=== PATIENT | female | born 1960 | race Caucasian/White ===

== ENCOUNTER 2017-03-16 12:45 | Outpatient (CLI) | payer MEDICARE, SELFPAY | END 2017-03-16 14:00 | disposition home or self-care (01) | PROVIDERS: Visit Provider Family Medicine | DX: M81.0 Age-related osteoporosis without current pathological fracture (principal) | CPT/HCPCS: 82040; 82310; 82565; 96365; J3489 ==

== ENCOUNTER → 2017-04-21 08:22 | Outpatient (CLI) | payer MEDICARE, SELFPAY ==
--- NOTE | 2017-04-21 08:27 | MM_ITS ---
MM Dig screening mamm BI w/CAD CAD Screening ORDERING PHYSICIAN : Ricky Pennington MD PATIENT AGE: 56 years GENDER: Female COMPARISON: Digital mammogram May 2010 Film screen mammogram October 1998 HISTORY no hormones. No new complaints. Noncontributory family history TECHNIQUE: Standard CC and MLO images were obtained. R2 CAD reviewed. Additional MLO view to include INF bilateral FINDINGS: Minimal fibroglandular elements, Fairly Low-density breast bilaterally with generalized fatty replacement. No dominant mass. No suspicious calcifications either breast . No significant new areas of concern . There is no history of hormones but there is very slight accentuation of glandular elements throughout both breasts either reflecting technique or exogenous hormone effect. This includes mild accentuation of some some underlying fibroglandular elements here at the left breast central and upper-outer quadrant. No dominant mass or significant finding but this subtle asymmetry does warrant ongoing follow-up. Would encourage and emphasized follow-up not over one year along with some breast examination for close follow-up. IMPRESSION: No new findings of significant concern No mass. No discrete radiographic lesion Bilateral follow-up in one year recommended and should be encouraged and emphasized, along with self breast examination this patient BI-RADS Category: 2 Benign Finding(s) RECOMMENDED FOLLOW-UP: 1YR - 1 YEAR FOLLOW-UP (A letter has been sent to the patient regarding results of the study.)
== END ==
PROVIDERS: Family Provider Family Medicine; PCP Family Medicine; Visit Provider Family Medicine
DX: Z12.31 Encounter for screening mammogram for malignant neoplasm of breast (principal)
CPT/HCPCS: 77067

== ENCOUNTER → 2017-06-28 08:37 | Outpatient (CLI) | payer MEDICARE, SELFPAY ==
[2017-06-28 09:11] LABS: Blood Urea Nitrogen 15 mg/dL (7-18); Creatinine,Serum 0.87 mg/dL (0.55-1.02); Estimated Glomerular Filt Rate 68 ml/min (>60); GFR (African American) 82 ML/MIN (>60)
--- NOTE | 2017-06-28 09:20 | CT_ITS ---
CT abdomen pelvis w con Ordering Physician: Carlos Mata MD Patient Age: 56 years: Female HISTORY: ITS.REASON: GENERALIZED ABD PAIN, GREATER ON THE LEFT . Left-sided pain for 2 months feels like laying on a marble TECHNIQUE:. Helical CT scanning through abdomen & pelvis following 75 cc Isovue-370. Early scanning abdomen and pelvis; followed by 5 m delayed imaging through abdomen. Sagittal and coronal reconstructions formatted CT workstation oral contrast also utilized COMPARISON :Previous CT abdomen pelvis 07/18/2010 FINDINGS Lungs with dependent atelectasis. small hiatal hernia. Borderline cardiomegaly Liver. 16 mm hepatic cyst at the superior central right lobe. 11 mm cyst medial far dome of liver. Both these Incrementally larger but appears to be a benign cyst.. Fluid densityOtherwise liver unremarkable. Gallbladder is been removed. No significant ductal dilatation. Pancreas.: Normal. Stable Spleen: unremarkable. Adrenals: unremarkable. Kidneys. Satisfactory unremarkable. Ureters unremarkable. Aorta: normal caliber. Pelvis.: Hysterectomy. No adnexal masses.. Bladder unremarkable GI tract. Generous gas throughout the colon with Moderate stool at the right and transverse colon. Minimal stool left colon . No diverticulosis but no diverticulitis. Redundant sigmoid colon contains moderate gas & minimal stool. Small bowel. No bowel dilatation. No wall thickening. Only few scattered small air-fluid levels. Do not appear to be significant . Appendix removed, ileum unremarkable No significant hernia. Only tiny fat-containing umbilical hernia, unchanged since 2010 Osseous. No lesions. Moderate facet arthropathy, hypertrophy lower levels L-spine IMPRESSION 1. No acute findings abdomen pelvis. No findings to account for the patient's left-sided pain. 2.. Note Generous Gaseous distention throughout entire colon : with moderate stool the right & transverse colon. Only Minimal stool left colon 3.. Small hiatal hernia 4. Two Small benign-appearing hepatic cysts again noted. Only incrementally larger than 2011
--- NOTE | 2017-06-28 09:49 | HMH.ITSHM ---
TRAMADOL, FURESOMIDE, LYRICA
== END ==
PROVIDERS: Family Provider Family Medicine; PCP Family Medicine; Visit Provider Family Medicine
DX: R10.84 Generalized abdominal pain (principal)
CPT/HCPCS: 36415; 74177; 82565; 84520; Q9967

== ENCOUNTER → 2019-10-11 13:47 | Outpatient (CLI) | payer MEDICARE, SELFPAY ==
[2019-10-11 15:07] LABS: Albumin Level 3.7 g/dl (3.5-5.0)
[2019-10-11 15:10] LABS: Calcium 9.2 mg/dl (8.4-10.2); Estimated Glomerular Filt Rate 74 ml/min (>60); GFR (African American) 89 ML/MIN (>60)
== END ==
PROVIDERS: Visit Provider Family Medicine
DX: M81.0 Age-related osteoporosis without current pathological fracture (principal)
CPT/HCPCS: 36415; 82040; 82310; 82565

== ENCOUNTER 2019-10-16 12:31 | Outpatient (CLI) | payer MEDICARE, SELFPAY ==
[2019-10-16 12:51] VITALS: BP 132/76; PULSE 61; RESP 18; TEMP 36.6; O2SAT 98
[2019-10-16 13:30] VITALS: BP 128/74; PULSE 60; RESP 18; TEMP 36.6; O2SAT 98
== END 2019-10-16 13:30 | disposition home or self-care (01) ==
LOC: INF 12:31
PROVIDERS: Visit Provider Family Medicine
DX: M81.0 Age-related osteoporosis without current pathological fracture (principal)
CPT/HCPCS: 96374; J3489

== ENCOUNTER → 2019-11-10 12:29 | Outpatient (CLI) | payer MEDICARE, SELFPAY ==
[2019-11-10 13:29] LABS: Basophils # 0.1 K/mm3 (0-0.2); Basophils % 0.9 % (0.1-2.0); Eosinophils # 0.3 K/mm3 (0.0-0.4); Eosinophils % 4.4 % (0.1-12.0); Hematocrit 42.6 % (37.0-47.0); Hemoglobin 14.5 g/dL (12.2-16.2); Lymphocytes # 1.6 K/mm3 (0.7-4.5); Lymphocytes % 23.8 % (10-50); Mean Corpuscular Hemoglobin 32.2 pg (27.0-31.2); Mean Corpuscular Volume 94.7 fl (81-99); Mean Platelet Volume 7.6 fl (7.4-10.4); Monocytes # 0.3 K/mm3 (0.1-1.0); Monocytes % 4.7 % (1.7-9.3); Neutrophils # 4.4 K/mm3 (1.8-7.8); Neutrophils % 66.2 % (37.0-80.0); Platelet Count 313 K/mm3 (142-424); Red Blood Count 4.49 M/mm3 (4.20-5.40); Red Cell Distribution Width 13.2 % (11.5-17.5); White Blood Count 6.7 K/mm3 (4.8-10.8)
== END ==
PROVIDERS: PCP Family Medicine; Visit Provider Physician Assistant
DX: Z03.818 Encounter for observation for suspected exposure to other biological agents ruled out (principal)
CPT/HCPCS: 36415; 85025; U0003

== ENCOUNTER → 2019-12-13 11:50 | Outpatient (CLI) | payer MEDICARE, SELFPAY ==
[2019-12-13 13:26] LABS: Blood Urea Nitrogen 12 mg/dl (7-17); Estimated Glomerular Filt Rate 86 ml/min (>60); GFR (African American) 104 ML/MIN (>60)
== END ==
PROVIDERS: Visit Provider Family Medicine
DX: Z01.818 Encounter for other preprocedural examination (principal)
CPT/HCPCS: 36415; 82565; 84520

== ENCOUNTER → 2019-12-20 08:37 | Outpatient (CLI) | payer MEDICARE, SELFPAY ==
--- NOTE | 2019-12-20 08:42 | FL_ITS ---
PROCEDURE: FL BARIUM SWALLOW CLINICAL INDICATION: DYSPHAGIA COMPARISON: CR,CT ABDPELW CT abdomen pelvis w con from 06/28/2017 TECHNIQUE: In the upright position the patient was observed to swallow barium in both the AP and lateral view. The cervical esophagus was examined under fluoroscopy with images obtained. The patient was then placed prone in the right anterior oblique position and was observed to swallow barium with Valsalva technique . FLUOROSCOPY TIME: 2 minutes 25 seconds FINDINGS: There was no evidence of aspiration. There was normal peristalsis. There is no abnormality of the cervical esophagus. There is a progressively enlarging hiatal hernia seen developing during the study. This appears to be combination of sliding and paraesophageal hernia. There is mild persistent stenosis of the distal esophagus just above the esophagogastric junction. This may represent changes from chronic reflux esophagitis. There is free gastroesophageal reflux up to the upper thoracic esophagus with the patient in the supine position. When compared to the previous CT scan of the abdomen 06/28/2017 there has been interval enlargement of the hiatal hernia. IMPRESSION: Moderately large sliding and paraesophageal hiatal hernia with free GE reflux as noted. Dictated by: Dr. Ketan Smith MD 12/20/2019 09:46 Dr. Ketan Smith MD in [place] 12/20/2019 09:46
--- NOTE | 2019-12-20 08:43 | CT_ITS ---
PROCEDURE: CT SOFT TISSUE NECK W CON CLINICAL HISTORY: PHARYNGEAL DYPHAGIA dysphagia....feels like left side of neck is numb no palpable areas COMPARISON: RF FL BARIUM SWALLOW from 12/20/2019 TECHNIQUE: Oral Contrast: None IV Contrast: 75 mL Optiray 350 Axial images obtained with sagittal and coronal reformats. All CT scans at the facility use one or more dose reduction, viz: automated exposure control, ma/kV adjustment per patient size (including targeted exams where dose is matched to indication, i.e. head), or iterative reconstruction technique. FINDINGS: The nasopharynx, epiglottis, oropharynx and hypopharynx have an unremarkable appearance. No mass or abscess. There are few scattered small cervical lymph nodes. No dominant adenopathy. There are mild osteoarthritic changes of the TMJs. The cervical spine has an unremarkable appearance. Lung apices are clear IMPRESSION: Negative CT of the neck with contrast Dictated by: Luca Pereira MD 12/21/2019 14:44 Luca Pereira MD in [place] 12/21/2019 14:44
== END ==
PROVIDERS: PCP Family Medicine; Visit Provider Family Medicine
DX: R13.13 Dysphagia, pharyngeal phase (principal)
CPT/HCPCS: 70491; 74220; Q9967

== ENCOUNTER → 2020-01-14 12:40 | Outpatient (CLI) | payer MEDICARE, SELFPAY ==
[2020-01-14 14:13] LABS: Coronavirus 19 IgG Antibody Negative (Negative); Coronavirus 19 IgM Antibody Negative (Negative)
== END ==
PROVIDERS: Visit Provider Internal Medicine Gastroenterology
DX: Z01.818 Encounter for other preprocedural examination (principal); Z13.810 Encounter for screening for upper gastrointestinal disorder
CPT/HCPCS: 36415; 86328

== ENCOUNTER 2020-01-15 10:00 | Day surgery (SDC) | payer MEDICARE, SELFPAY ==
[2020-01-09 13:15] VITALS: BMI 35.2
[2020-01-15] VITALS (8 sets, daily range): BP systolic 90–150; BP diastolic 57–108; PULSE 62–90; RESP 18; TEMP 36.4–36.8; O2SAT 90–100
--- NOTE | 2020-01-15 10:57 | P.PCN_ITS ---
[facility] Procedure Note Procedure Note:: Upper Endoscopy Procedure Report: Esophagogastroduodenoscopy with cold biopsies and TTS balloon dilation Endoscopost: Baldev Olivo II, MD Referring Physician: Semaj Pennington MD Date of Procedure: January 15, 2020 Equipment: Olympus GIF 180 standard upper endoscope Sedation: MAC sedation Indications: Mrs. Newell is a 59-year-old female with globus sensation and some dysphagia. She reports some frequent clearance of the throat and choking. The patient did undergo fundoplication ([facility]) 13 years ago. This was the last time she had an EGD. She does get some epigastric abdominal pain and dyspepsia that radiates into the back. This often occurs after meals. She does have moderate bloating and gassiness with some belching. She reports some early satiety. She does have IBS constipation and does take MiraLAX when necessary. She reports no chest pain. The patient did have a barium swallow on December 20, 2019 and she did appear to have a sliding paraesophageal hernia. There was some gastroesophageal reflux identified. She did have a subsequent CAT scan of the neck which was otherwise normal. Procedure: Prior to the procedure, a history and physical exam was performed, and patient's medications and allergies were reviewed. The risks, benefits and alternatives o f the sedation and procedure were discussed with the patient. All questions were answered and informed consent was obtained. The patient was brought to the procedure room. Patient identification and proposed procedure were verified by the physician and the nurse. The patient was placed in a left lateral decubitus position and the scope was passed under direct vision. Throughout the procedure, the patient's blood pressure, pulse, and oxygen saturations were monitored continuously. The upper GI endoscopy was accomplished without difficulty. The patient tolerated the procedure well. Findings: The scope was passed directly into the upper esophagus and advanced to the third portion of the duodenum. The post bulbar duodenum and duodenal bulb were normal with normal mucosa and conniventes. The scope was withdrawn through a normal duodenal bulb and pylorus into the stomach. There was evidence of linear reactive gastropathy of the antrum with bile reflux. There was some gastric atrophy of the body and fundus. Biopsies were taken from the antrum to rule out H. pylori. Biopsies were taken from the fundus of the stomach to rule out atrophy. Upon retroflexion there was 2 to 3 cm hiatal hernia/paraesophageal hernia (small to medium size). The scope was then withdrawn into the esophagus. There was a single tongue of salmon-colored mucosa that was biopsied to rule out Dos Santos's esophagus. There was no Schatzki's ring or reflux esophagitis. There were strong tertiary contractions and evidence of moderate esophageal dysmotility. There was a proximal esophageal inlet patch. The entire esophagus was dilated to 60 Croatian/20 mm with a TTS hydrostatic balloon. There was some resistance at the cricopharyngeus. The remainder of the esophageal mucosa was normal. Impression: 1. Cricopharyngeal spasm status post dilation to 20 mm 2. Nonerosive GERD with moderate esophageal dysmotility and small 2 to 3 cm hiatal hernia/paraesophageal hernia 3. Bile reflux with linear reactive gastropathy and mild chronic atrophic gastritis Plan: I will follow-up the biopsies. The patient does have cricopharyngeal spasm causing her globus sensation and choking. We will discuss additional treatment options which should include a fiber bowel regimen and possibly promotility therapy. I will inquire about any recent colonoscopy as well
== END 2020-01-15 12:00 | disposition home or self-care (01) ==
LOC: OUTP 10:01
PROVIDERS: PCP Family Medicine; Visit Provider Internal Medicine Gastroenterology
PROC: 0DJ08ZZ Inspection of Upper Intestinal Tract, Via Natural or Artificial Opening Endoscopic (ICD-10-PCS; CPT 43235; principal; 2020-01-15 12:30)
DX: J39.2 Other diseases of pharynx (principal); K21.9 Gastro-esophageal reflux disease without esophagitis; K22.4 Dyskinesia of esophagus; K44.9 Diaphragmatic hernia without obstruction or gangrene; K31.9 Disease of stomach and duodenum, unspecified; K29.40 Chronic atrophic gastritis without bleeding; I11.0 Hypertensive heart disease with heart failure; I50.9 Heart failure, unspecified; Z90.49 Acquired absence of other specified parts of digestive tract; Z90.710 Acquired absence of both cervix and uterus; Z88.6 Allergy status to analgesic agent; Z79.899 Other long term (current) drug therapy
CPT/HCPCS: 43239; 43249; 88305; C1726

== ENCOUNTER → 2020-05-27 14:14 | Outpatient (CLI) | payer MEDICARE, SELFPAY | PROVIDERS: PCP Family Medicine; Visit Provider Nurse Practitioner Family | DX: R00.2 Palpitations (principal); R06.00 Dyspnea, unspecified; R40.0 Somnolence; R60.9 Edema, unspecified | CPT/HCPCS: 93270 ==

== ENCOUNTER → 2020-06-05 14:35 | Outpatient (POV) | payer MEDICARE, SELFPAY | DX: Z00.00 Encounter for general adult medical examination without abnormal findings (principal) ==

== ENCOUNTER → 2020-06-21 14:52 | Outpatient (CLI) | payer MEDICARE, SELFPAY ==
[2020-06-21 16:05] LABS: Coronavirus 19 IgG Antibody Negative (Negative); Coronavirus 19 IgM Antibody Negative (Negative)
== END ==
PROVIDERS: Visit Provider Internal Medicine
DX: Z01.812 Encounter for preprocedural laboratory examination (principal)
CPT/HCPCS: 36415; 86328

== ENCOUNTER 2020-06-24 08:02 | Day surgery (SDC) | payer MEDICARE, SELFPAY ==
[2020-06-24 08:18] VITALS: BMI 35.7
[2020-06-24 08:35] VITALS: BP 152/75; PULSE 74; RESP 16; O2SAT 96
[2020-06-24 08:39] VITALS: PULSE 65
[2020-06-24 09:23] VITALS: BP 148/89; PULSE 60; RESP 20; TEMP 36.6; O2SAT 98
--- NOTE | 2020-06-24 09:24 | CA_ITS ---
APPROVED REPORT EXAM: Comprehensive 2D, Doppler, and color-flow Echocardiogram Gear Finisher: RIKI Seth, RVS Ht: 5 ft 5 in Wt: 215lbs BSA: 2.04 HR: 61 bpm BP: 132/60 mmHg Indications: Shortness of Breath, Obesity, Palpitations, Edema, hx-smoking. S/P loop recorder removal today 2D Dimensions IVSd 0.93 cm LVEF (Visual) 62.20 % PWd 1.09 cm LA Volume 66.20 mL LVDd 5.79 cm LA Volume Index 32.50 mL/m2 (M/F) 16-34 LVDs 3.82 cm LVOT 2.00 cm (M/F) 1.5-2.5 M-Mode Dimensions LA Diam 4.29 cm (1.9-4.0) Ao Diam 3.08 cm (2.0-3.7) TAPSE 1.94 (<1.7) LV Diastology E Decel Time 307.00 (160-240 msec) E/A Ratio 1.58 MED E' 9.70 (< 7 cm/sec) MED A' 8.60 cm/s E'/MED E' Ratio 10.99 (>14) LAT E' 13.40 (<10 cm/sec) LAT A' 10.20 cm/s E/LAT E' Ratio 7.96 (>14) Aortic Valve AoV Peak Nguyễn. 162.00 (50-130 cm/s) AO Peak GR. 10.50 mmHg AO Mean GR. 5.60 (<5 mmHg) AO VTI 29.73 (18-25 cm) Mitral Valve MV A Velocity 67.00 (40-130 cm/s) E/A Ratio 1.58 MV Decel. Time 307.00 (160-240 ms) Pulmonary Valve PV Peak Velocity 101.00 (50-150 cm/s) Tricuspid Valve TR P. Velocity 221.00 cm/s RAP Estimate 10.00 mmHg RVSP 29.60 mmHg Left Ventricle Left atrium is qualitatively mildly enlarged, left ventricle is normal size, visually estimated ejection fraction 55% with no regional wall motion abnormality, diastolic parameters are within normal range. Right Ventricle Right atrium and right ventricular normal size and contractility. Aortic Valve Aortic valve is minimally thickened and fibrosed, there is no aortic stenosis or aortic insufficiency. Mitral Valve Mitral valve is grossly normal, there is trace mitral regurgitation. Tricuspid Valve Tricuspid grossly normal, there is trace tricuspid regurgitation, tricuspid regurgitation jet velocity is inadequate for calculation of the right ventricular systolic pressure. Pulmonic Valve Pulmonic valve is poorly visualized. Great Vessels Aortic root is normal size. Pericardium No significant pericardial effusion noted. Conclusion 1. Normal left ventricular size, preserved left ventricular systolic function, visually estimated ejection fraction 55% with no regional wall motion abnormality, diastolic parameters are within normal range. 2. Trace mitral and tricuspid regurgitation. 3. No significant pericardial effusion noted. Electronically signed by : Rony Bey, 06/24/2020 20:31:41
--- NOTE | 2020-06-24 12:05 | HMH.PROC ---
[facility] Procedure Note Procedure Note:: Patient was brought to the cardiac Director [employer] as an outpatient. After informed consent was obtained, 1% lidocaine was used to anesthetize the area over the loop recorder. A scalpel was used to dissect down to the loop recorder and forceps were used to remove the device without complications. The device was removed due to end-of-life indication. Patient tolerated the procedure well. The incision site was approximated and Steri-Strips and pressure dressing applied. The patient will follow-up in our office in 1 week or sooner if needed.
== END 2020-06-24 09:36 | disposition home or self-care (01) ==
LOC: CATHLAB 08:03
PROVIDERS: PCP Family Medicine; Visit Provider Internal Medicine
DX: R00.2 Palpitations (principal); R06.00 Dyspnea, unspecified; R40.0 Somnolence; R60.9 Edema, unspecified; Z45.09 Encounter for adjustment and management of other cardiac device
CPT/HCPCS: 33286; 93306

== ENCOUNTER → 2020-06-28 06:22 | Outpatient (CLI) | payer MEDICARE, SELFPAY ==
--- NOTE | 2020-06-28 06:22 | CA_ITS ---
APPROVED REPORT Exam: Exercise Treadmill Technologist: Priya San, Ht: 5 ft 5 in Wt: 215 lbs BSA: 2.04 m2 HR: 60 bpm BP: 127/77 mmHg Rhythm: NSR,NSSTTW ABNORMALITIES ANT-LATERALLY Medical History Medical History: HTN Medications: Omeprazole,,,,, Asa,,,,, Lasix,,,,, Tramadol,,,,, Montelukast,,,,, Levocetirizine,,,,, BisOPROL,,,,, Pramidexole,,,,, Cardiac Risk Factors: HTN, FHX of CAD, Smoking Stress Test Details Test: Wilman HR Resting HR: 91 bpm Max Heart Rate (APMHR): 162.274135 bpm Max HR Achieved: 149 bpm Target HR (85% APMHR): 137.548035 bpm % of APMHR: 91.98 Recovery HR: 99 bpm BP Resting BP: 127.0/77.0 mmHg Max BP: 145.0/83.0 mmHg Recovery BP: 156.0/76.0 mmHg ECG Resting ECG: NSR,NSSTTW ABNORMALITIES ANT-LATERLLY Clinical Reason for Termination: Dyspnea, Leg Pain Exercise duration: 06:01 min Highest Stage Achieved: Exercise capacity: 7.0 METs Stress ECG Conclusion PATIENT EXERCISED FOR 6:00 ON WILMAN PROTOCOL WITH MAX HEART RATE 149 BPM WHICH IS 104% OF PM FOR AGE. METS = 7.0. TEST STOPPED DUE TO LEG PAIN AND SOA. NO ARRHYTHMIAS/ECTOPY. <1.5MM ST SEGMENT CHANGES. ABNORMAL NON-DIAGNOSTIC STRESS DUE TO BASELINE STT ABNORMALITIES. Test Summary Stage 2 03:01 12.0 2.5 142 . . . Stage resumed REST . . . . . . . Sitting REST 08:48 0.0 0.0 91 . 127/ 77 . . Stage 1 01:00 10.0 1.7 102 . . . . Stage 1 02:00 10.0 1.7 124 . . . . Stage 1 03:00 10.0 1.7 124 . 140/ 78 . . Stage 2 01:00 12.0 2.5 133 . . . . Stage 2 . . . . . . . Cardiolite injected Stage 2 02:00 12.0 2.5 138 . . . . Stage 2 . . . . . . . Stage held Stage 2 03:00 12.0 2.5 144 . . . . Stage 2 . . . . . . . Stage resumed Stage 2 03:01 12.0 2.5 142 . . . Stop exercise at 06:01 RECOVERY 01:00 0.0 0.0 128 . . . . RECOVERY 02:00 0.0 0.0 111 . . . . RECOVERY 03:00 0.0 0.0 88 . . . . RECOVERY 04:00 0.0 0.0 90 . . . . RECOVERY 05:00 0.0 0.0 89 . . . . RECOVERY 06:00 0.0 0.0 102 . 145/ 83 . . RECOVERY 06:05 0.0 0.0 101 . 145/ 83 . . Electronically signed by : Rony Bey, 06/29/2020 13:23:54
--- NOTE | 2020-06-28 06:22 | NM_ITS ---
APPROVED REPORT Exam: Nuclear Stress Test Indication: HTN, FM HX, C.P., SOB, SOB, PALPITATIONS Patient Location: htn, Stress Tech: Kadi San NM Tech:Jumana Yun, ARRT, RT (R)(N) Ht: 5 ft 5 in Wt: 210 lbs Bra Size: 44C HR: 60 bpm BP: 127/77 mmHg BSA: 2.02 m2 BMI: 34.9 History: HTN, FM HX, C.P., SOB, SOB, PALPITATIONS Procedure: Patient exercised on Wilman protocol 6:00 minutes and sec, resting heart rate 60 bpm, resting blood pressure 127/77 mmHg, with exercise maximum heart rate achived was 149 bpm which is 104 % of the maximum predicted heart rate and blood pressure was 140/78 mmHg. Patient denied any complaint of chest pain. Patient has Adequate exercise capacity, achieved 7.0 METs of workload on treadmill, the blood pressure response to exercise was Adequate. Electrocardiogram Resting electrocardiogram showed sinus rhythm, with exercise there is less than 1.[address] segment depression noted from the baseline EKG, the EKG portion of the exercise Myoview is nondiagnostic due to baseline abnormal EKG. Cardiac Stress and Resting SPECT Images: Cardiac Stress and Resting SPECT images were obtained using technetium 99m Myoview 31.0 mCi stress and 9.68 mCi at rest. Gated SPECT for analysis of segmental wall motion and calculation of the ejection fraction also done. Prone images were also obtained. Cardiac stress and resting SPECT images show uniform myocardial activity without segmental perfusion abnormality, computer derived ejection fraction is 50% with no regional wall motion abnormality, right ventricle is normal size and contractility. Conclusion: 1. The EKG portion of the exercise Myoview is nondiagnostic due to baseline abnormal EKG, patient has adequate exercise capacity achieved 7 mets of workload on treadmill, the blood pressure response to exercise was adequate, there was no exercise-induced chest discomfort. 2. No scintigraphic evidence of reversible ischemia seen, computer derived ejection fraction is 50% with no regional wall motion abnormality, right ventricle is normal size and contractility. 3. Normal exercise Myoview study. Electronically signed by : Rony Bey, 06/29/2020 13:37:22
--- NOTE | 2020-06-28 08:19 | HMH.ITSHM ---
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 []FUROSEMIDE BISOPROLOL OMEPRAZOLE ASA CALCIUM
== END ==
PROVIDERS: PCP Family Medicine; Visit Provider Nurse Practitioner Family
DX: R00.2 Palpitations (principal); R06.00 Dyspnea, unspecified; R40.0 Somnolence; R60.9 Edema, unspecified
CPT/HCPCS: 78452; 93017; A9502

== ENCOUNTER → 2021-01-09 08:26 | Outpatient (CLI) | payer MEDICARE, SELFPAY ==
--- NOTE | 2021-01-09 08:34 | CT_ITS ---
PROCEDURE: CT ANGIO NECK CLINICAL INDICATION: lip numbness, neck cyst left side jaw. COMPARISON: No exams were available for comparison TECHNIQUE: CT angiography of the neck with multiplanar and 3D MIP reformations. Dose modulation, automated exposure control, and/or iterative reconstruction were used for dose reduction. All measurements of carotid stenosis are performed according to NASCET criteria. Contrast: 100ml Isouve 370. FINDINGS: AORTIC ARCH: Arch Anatomy: There is a normal branching anatomy of the aortic arch. Carotid Arteries: Carotid: The common carotid and cervical internal carotid arteries are patent and unremarkable without any significant stenosis or other abnormality. No dissection Vertebral Arteries: Both vertebral arteries are patent and unremarkable throughout their cervical portions, without any significant stenosis or other abnormality No dissection Lungs: The visualized lung apices are clear.</choice><choice name= emphysema >Emphysematous changes are present at the lung apices. Thyroid: The visualized thyroid gland is unremarkable. Bones: Mild TMJ arthropathy bilaterally right greater than left CTA of the head was also performed in conjunction with the CT of the neck but was not ordered. No additional contrast was given. No aneurysm, AVM, or major intracranial occlusive process. No enhancing lesions apparent. IMPRESSION: Unremarkable CTA of the neck. Bilateral TMJ arthropathy Dictated by: Luca Pereira MD 01/09/2021 11:13 Luca Pereira MD in [place] 01/09/2021 11:13
[2021-01-09 08:50] LABS: Blood Urea Nitrogen 8 mg/dl (7-17); Estimated Glomerular Filt Rate 73 ml/min (>60); GFR (African American) 89 ML/MIN (>60)
== END ==
PROVIDERS: Visit Provider Internal Medicine
DX: I10 Essential (primary) hypertension (principal); L72.0 Epidermal cyst; R00.2 Palpitations; R06.00 Dyspnea, unspecified; R20.0 Anesthesia of skin; R60.9 Edema, unspecified
CPT/HCPCS: 36415; 70498; 82565; 84520; Q9967

== ENCOUNTER → 2021-02-28 14:52 | Outpatient (CLI) | payer MEDICARE, SELFPAY ==
--- NOTE | 2021-02-28 14:52 | CT_ITS ---
PROCEDURE INFORMATION: Exam: CT Neck Without Contrast Exam date and time: 02/28/2021 2:52 PM Age: 60 years old Clinical indication: Mass, lump, or swelling in neck; Left; Additional info: Left sided facial/neck swelling TECHNIQUE: Imaging protocol: Computed tomography images of the neck without contrast. Radiation optimization: All CT scans at this facility use at least one of these dose optimization techniques: automated exposure control; mA and/or kV adjustment per patient size (includes targeted exams where dose is matched to clinical indication); or iterative reconstruction. COMPARISON: CT ANGIO NECK 01/09/2021 9:07 AM FINDINGS: Nasopharynx: Unremarkable. Oropharynx: Unremarkable. No significant tonsillar enlargement. Hypopharynx: Unremarkable. Larynx: Unremarkable. Normal epiglottis. Retropharyngeal space: Unremarkable. Submandibular/Parotid glands: Normal. Glands are normal in size. Thyroid: Normal. No enlarged or calcified nodules. Lymph nodes: Unremarkable. No lymphadenopathy. Trachea: Visualized trachea is unremarkable. Lungs: Unremarkable as visualized. Bones/joints: Unremarkable. No acute fracture. Soft tissues: Unremarkable. No significant soft tissue swelling. IMPRESSION: No acute findings.
== END ==
PROVIDERS: PCP Family Medicine; Visit Provider Otolaryngology
DX: R22.0 Localized swelling, mass and lump, head (principal)
CPT/HCPCS: 70490

== ENCOUNTER 2021-03-17 04:49 | Observation (INO) | payer MEDICARE, SELFPAY ==
[2021-03-17] VITALS (26 sets, daily range): BP systolic 104–144; BP diastolic 58–94; PULSE 60–107; RESP 14–26; TEMP 36.3–37; O2SAT 90–99; BMI 34.9; BMI 36.8
--- NOTE | 2021-03-17 | IR_ITS ---
APPROVED REPORT Patient Location: Outpatient Cable Placer: DAKOTAH Austin RT (R) PROCEDURES Left heart catheterization Left ventriculogram Selective coronary angiogram INDICATION Chest pain with strikingly abnormal EKG suspect acute coronary syndrome Informed consent was obtained prior to the procedure. COMPLICATIONS NONE Estimated Blood Loss: LESS THAN 10 ML TECHNIQUE One percent lidocaine used to anesthetize the right anterior aspect of the wrist. The right radial artery was accessed via the Seldinger technique. A 6 [place] sheath was placed in the right radial artery. 2.5 mg of verapamil, 800 mcg of nitroglycerin, 1mg Lidocaine and 5000 U Heparin were given through the arterial sheath. The Poppa catheter was also used to perform left heart catheterization, left ventriculogram and selective coronary angiogram. At the end of the procedure the sheath was removed good hemostasis was achieved using Traclet band, patient was transferred to the postop holding area in stable condition. ANGIOGRAPHIC RESULTS The left main artery Normal The left anterior descending artery Normal The circumflex artery normal The right coronary artery co-dominant and normal The BAKER ventriculogram reveals normal ejection fraction estimated 65% The left ventricular end-diastolic pressure 10 mmHg IMPRESSION Normal coronary arteries Normal ejection fraction Normal left ventricular end-diastolic pressure PLAN 1. Evaluation of noncardiac symptoms Electronically signed by : Adiel Niño MD 03/17/2021 08:28:09
--- NOTE | 2021-03-17 04:57 | ECG_ITS ---
APPROVED REPORT Exam: Resting ECG HR:84 bpm ECG Measurements Heart Rate 84 AXES WA 132 P 49 QRSd 84 QRS 42 QT 352 T -26 QTc 415 Conclusion Normal sinus rhythm ST & T wave abnormality, consider anterolateral ischemia Abnormal ECG Electronically signed by : Lucius Casillas MD 03/18/2021 21:07:33
--- NOTE | 2021-03-17 05:15 | XR_ITS ---
PROCEDURE INFORMATION: Exam: XR Chest Exam date and time: 03/17/2021 5:15 AM Age: 60 years old Clinical indication: Cough and other: Lung pain; Additional info: Lung pain cough TECHNIQUE: Imaging protocol: XR of the chest. Views: 2 views. COMPARISON: CR CXR CHEST(2 VIEWS-NOT PORTABLE) 09/09/2015 10:39 AM FINDINGS: Lungs: Unremarkable. No consolidation. Pleural spaces: Unremarkable. No pleural effusion. No pneumothorax. Heart/Mediastinum: Unremarkable. No cardiomegaly. Bones/joints: Unremarkable. IMPRESSION: No acute findings.
--- NOTE | 2021-03-17 05:18 | HMH.EDSOB ---
ED Disposition Clinical Impression: Pleurisy, Abnormal finding on EKG CAP (community acquired pneumonia) Qualifiers: Laterality: unspecified laterality Qualified Code(s): J18.9 - Pneumonia, unspecified organism Disposition: Admitted as Observation Condition on Discharge: Good Referrals: Ricky Pennington MD [Primary Care Provider] - Adiel Niño MD [Staff Physician] - - Critical Care Critical Care Time: No Attestation: On 03/17/21, the high probability of a clinically significant, sudden or life threatening deterioration of the following system(s) required my full and direct attention, intervention and personal management. The time I documented below is in addition to time spent performing reported procedures but includes the following listed in this critical care notation. Medical Decision Making - Medical Records Medical records reviewed: Yes: I reviewed the patient's medical records. - Mauricio Inquiry Pt receiving controlled substance: No Vital Signs: 03/17/21 04:50 03/17/21 05:31 03/17/21 06:00 Temperature 98.3 F Temperature Source Oral Pulse Rate 81 94 H Pulse Rate [Left] 86 Respiratory Rate 26 H Blood Pressure 130/67 133/68 Blood Pressure [Right Arm] 130/86 Blood Pressure Mean Blood Pressure Mean [Right Arm] 100 02 Sat by Pulse Oximetry 98 99 98 Oxygen Delivery Method Room Air Room Air Room Air 03/17/21 06:30 03/17/21 07:01 Temperature Temperature Source Pulse Rate 79 79 Pulse Rate [Left] Respiratory Rate 15 Blood Pressure 131/80 141/72 H Blood Pressure [Right Arm] Blood Pressure Mean 82 Blood Pressure Mean [Right Arm] 02 Sat by Pulse Oximetry 98 97 Oxygen Delivery Method Room Air - Lab Data Lab results reviewed: Yes: I reviewed the patient's lab results. Lab Results 03/17/21 05:00: WBC 7.0, RBC 4.32, Hgb 13.1, Hct 40.3, MCV 93.2, MCH 30.3, MCHC 32.5, RDW 13.6, Plt Count 327, MPV 8.3, Neut % (Auto) 65.0, Lymph % (Auto) 28.5, [place] % (Auto) 3.8, Eos % (Auto) 1.7, Baso % (Auto) 0.9, Neut # (Auto) 4.6, Lymph # (Auto) 2.0, [place] # (Auto) 0.3, Eos # (Auto) 0.1, Baso # (Auto) 0.1, ESR 49 H 03/17/21 05:00: Sodium 139, Potassium 3.8, Chloride 105, Carbon Dioxide 26, Anion Gap 11.8, BUN 6 L, Creatinine 0.70, Estimated Creat Clear 130, Estimated GFR 86, Est GFR ( Amer) 104, Glucose 122 H, Calcium 9.2, Total Bilirubin 0.5, AST 36, ALT 29, Alkaline Phosphatase 78, Troponin I < 0.01, Total Protein 7.4, Albumin 4.1, Globulin 3.3 H, Albumin/Globulin Ratio 1.2, Lipase 38, Procalcitonin 0.120 03/17/21 05:00: SARS-CoV-2 (PCR) Not detected, Influenza A Untype (PCR) Not detected, Influenza Type B (PCR) Not detected 03/17/21 05:00: Lactate 1.6 03/17/21 05:40: Urine Color Yellow, Urine Appearance Clear, Urine pH 6.0, Ur Specific [place] <= 1.005, Urine Protein Negative, Urine Glucose (UA) Negative, Urine Ketones Negative, Urine Blood Negative, Urine Nitrate Negative, Urine Bilirubin Negative, Urine Urobilinogen 0.2, Ur Leukocyte Esterase Trace, Urine WBC 3-5, Amorphous Sediment Trace Result diagrams: 03/17/21 05:00 03/17/21 05:00 Orders (Tests/Meds): ED MEDICATIONS Generic Name Dose Route Start Last Admin Trade Name Freq PRN Reason Stop Dose Admin Sodium Chloride 1,000 mls @ 999 mls/hr 03/17/21 05:30 03/17/21 05:23 Sod Chlor 0.9% 1000ml Bag IV 03/17/21 06:30 999 mls/hr .Q1H1M ALEXANDRA Administration Azithromycin 500 mg/ Sodium 250 mls @ 250 mls/hr 03/17/21 06:45 03/17/21 06:43 Chloride IV 03/31/21 06:44 250 mls/hr Q24H ALEXANDRA Administration Ceftriaxone Sodium 1 gm/ 50 mls @ 100 mls/hr 03/17/21 06:45 03/17/21 06:45 Sodium Chloride IV 03/31/21 06:44 100 mls/hr Q24H ALEXANDRA Administration Discontinued Medications Generic Name Dose Route Start Last Admin Trade Name Freq PRN Reason Stop Dose Admin Aspirin 324 mg 03/17/21 07:07 03/17/21 07:11 Aspirin 81mg Chewable Tablet PO 03/17/21 07:08 324 mg ONCE ONE Administration Io
[2021-03-17 05:33] LABS: Basophils # 0.1 K/mm3 (0-0.2); Basophils % 0.9 % (0.1-2.0); Eosinophils # 0.1 K/mm3 (0.0-0.4); Eosinophils % 1.7 % (0.1-12.0); Hematocrit 40.3 % (37.0-47.0); Hemoglobin 13.1 g/dL (12.2-16.2); Lymphocytes % 28.5 % (10-50); Mean Corpuscular HGB Conc 32.5 g/dL (31.8-35.4); Mean Corpuscular Hemoglobin 30.3 pg (27.0-31.2); Mean Corpuscular Volume 93.2 fl (81-99); Mean Platelet Volume 8.3 fl (7.4-10.4); Monocytes # 0.3 K/mm3 (0.1-1.0); Monocytes % 3.8 % (1.7-9.3); Neutrophils # 4.6 K/mm3 (1.8-7.8); Platelet Count 327 K/mm3 (142-424); Red Blood Count 4.32 M/mm3 (4.20-5.40); Red Cell Distribution Width 13.6 % (11.5-17.5)
[2021-03-17 05:34] LABS: Coronavirus 19, PCR Not Detected (NotDetected); Influenza A, PCR Not Detected (NotDetected); Influenza B, PCR Not Detected (NotDetected)
--- NOTE | 2021-03-17 05:37 | PC.NURSE ---
Pt going to radiology at this time.
[2021-03-17 05:38] LABS: Lactic Acid 1.6 mmol/L (0.7-2.1)
[2021-03-17 05:39] LABS: Alanine Aminotransferase 29 U/L (12-78); Albumin Level 4.1 g/dl (3.5-5.0); Albumin/Globulin Ratio 1.2 (1.1-1.8); Alkaline Phosphatase 78 U/L (38-126); Anion Gap 11.8 mEq/L (5-15); Aspartate Amino Transferase 36 U/L (14-36); Bilirubin,Total 0.5 mg/dl (0.2-1.3); Blood Urea Nitrogen 6 mg/dl (7-17); Calcium 9.2 mg/dl (8.4-10.2); Carbon Dioxide 26 mmol/L (22.0-30.0); Chloride 105 mmol/L (98-107); Creatinine Clearance Estimated 130 mL/min (50-200); Estimated Glomerular Filt Rate 86 ml/min (>60); GFR (African American) 104 ML/MIN (>60); Globulin 3.3 g/dL (1.3-3.2); Glucose 122 mg/dl (74-100); Lipase 38 U/L (23-300); Potassium 3.8 mmoL/L (3.5-5.1); Sodium 139 mmol/L (136-145); Total Protein,Serum 7.4 g/dl (6.3-8.2)
[2021-03-17 05:48] LABS: Microscopic, Urine URINE MICROSCOPIC (MICROSCOPIC)
[2021-03-17 05:50] LABS: Appearance,Urine CLEAR (Clear); Bilirubin,Urine Negative (Negative); Blood, Urine Negative (Negative); Color,Urine YELLOW (Yellow); Glucose,Urine (UA) Negative (Negative); Ketones,Urine Negative (Negative); Leukocyte Esterase,Urine TRACE (Negative); Nitrate,Urine Negative (Negative); Protein,Urine Negative (Negative); Specific Gravity, Urine <= 1.005 (1.005-1.030); Urobilinogen,Urine 0.2 EU/dl (0.2)
--- NOTE | 2021-03-17 05:52 | CT_ITS ---
PROCEDURE INFORMATION: Exam: CTA Chest With Contrast Exam date and time: 03/17/2021 5:52 AM Age: 60 years old Clinical indication: Cough and other: Lung pain; Additional info: Lung pain cough TECHNIQUE: Imaging protocol: Computed tomographic angiography of the chest with contrast. 3D rendering (Not supervised by radiologist): MIP and/or 3D reconstructed images were created by the technologist. Radiation optimization: All CT scans at this facility use at least one of these dose optimization techniques: automated exposure control; mA and/or kV adjustment per patient size (includes targeted exams where dose is matched to clinical indication); or iterative reconstruction. Contrast material: ISOVUE 370; Contrast volume: 70 ml; Contrast route: INTRAVENOUS (IV); COMPARISON: CR XR CHEST 2V 03/17/2021 5:32 AM FINDINGS: Pulmonary arteries: Normal. No pulmonary emboli. Aorta: Unremarkable. No aortic aneurysm. No aortic dissection. Lungs: Some patchy airspace disease is seen primarily in the right middle and in both lower lobes. Some of this is slightly nodular and somewhat this more ground-glass in opacity. Pleural spaces: Unremarkable. No pneumothorax. No pleural effusion. Heart: Unremarkable. No cardiomegaly. No pericardial effusion. Lymph nodes: Unremarkable. No enlarged lymph nodes. Diaphragm: A moderate size hiatal hernia is present. Bones/joints: Unremarkable. No acute fracture. Soft tissues: Unremarkable. IMPRESSION: No evidence of pulmonary embolus. Patchy bibasilar airspace disease consistent with early pneumonia..
[2021-03-17 05:59] LABS: Amorphous Sediment,Urine Trace /lpf
[2021-03-17 06:00] LABS: Troponin I < 0.01 ng/ml (0.00-0.034)
[2021-03-17 06:02] LABS: Erythrocyte Sedimentation Rate 49 mm/hr (0-30)
--- NOTE | 2021-03-17 06:24 | ECG_ITS ---
APPROVED REPORT Exam: Resting ECG HR:80 bpm ECG Measurements Heart Rate 80 AXES IN 138 P 47 QRSd 86 QRS 39 QT 366 T -2 QTc 422 Conclusion Normal sinus rhythm ST & T wave abnormality, consider inferior ischemia ST & T wave abnormality, consider anterolateral ischemia Abnormal ECG Electronically signed by : Lucius Casillas MD 03/18/2021 21:07:13
--- NOTE | 2021-03-17 06:39 | PC.NURSE ---
Dr. Malika johnson for Dr. Martins.
--- NOTE | 2021-03-17 06:47 | CA_ITS ---
APPROVED REPORT EXAM: Comprehensive 2D, Doppler, and color-flow Echocardiogram Community Outreach Worker: Farrah Land RVT Ht: 5 ft 5 in Wt: 210lbs BSA: 2.02 BP: 131/80 mmHg Indications: ABN EKG,COUGH,EARLY PNEUMONIA,HTN,PALPS TDS-PT SCANNED UPRIGHT R/T COUGHING 2D Dimensions IVSd 0.98 cm F: 0.6-1.0 LVEF (Visual) 57.60 % PWd 0.69 cm F: 0.6 - 1.0 LA Volume 27.00 mL LVDd 4.14 cm F: 3.9 - 5.3 LA Volume Index 13.36 mL/m2 (M/F) 16-34 LVDs 2.90 cm F: 2.2 - 3.5 LVOT 2.06 cm (M/F) 1.5-2.5 M-Mode Dimensions LA Diam 3.32 cm (1.9-4.0) Ao Diam 3.45 cm (2.0-3.7) TAPSE 2.38 (<1.7) LV Diastology E Decel Time 150.00 (160-240 msec) E/A Ratio 0.9 MED E' 9.00 (< 7 cm/sec) E'/MED E' Ratio 11.03 (>14) LAT E' 10.90 (<10 cm/sec) E/LAT E' Ratio 9.11 (>14) Mitral Valve MV E Max Nguyễn. 99.00 (40-130 cm/s) MV A Velocity 112.00 (40-130 cm/s) E/A Ratio 0.89 MV Decel. Time 150.00 (160-240 ms) MV PHT 44.00 ms Pulmonary Valve PV Peak Velocity 84.00 (50-150 cm/s) Tricuspid Valve TR P. Velocity 307.00 cm/s RAP Estimate 10.00 mmHg RVSP 47.70 mmHg Left Ventricle Left atrium is mildly enlarged, left ventricle is normal size, mild concentric left ventricular hypertrophy, visually estimated ejection fraction 50% with no regional wall motion abnormality diastolic parameters are inconclusive. Right Ventricle Right atrium and right ventricle are normal size and contractility. Aortic Valve Aortic valve is minimally thickened and fibrosed, there is no aortic stenosis or aortic insufficiency. Mitral Valve Mitral valve is grossly normal, there is trace mitral regurgitation Tricuspid Valve Tricuspid valve grossly normal, there is trace tricuspid regurgitation, tricuspid regurgitation jet velocity is inadequate for calculation of the right ventricular systolic pressure. Pulmonic Valve Pulmonic valve is poorly visualized. Great Vessels Aortic root is normal size. Inferior vena cava is poorly visualized. Pericardium No significant pericardial effusion noted. Conclusion 1. Technically difficult study because of the patient factors and poor acoustic windows. 2. Mildly in the left atrium, normal left ventricular size, mild concentric left ventricular hypertrophy, visually estimated ejection fraction 50% with no regional wall motion abnormality, diastolic parameters are inconclusive. 3. No significant pericardial effusion noted. 4. Inferior vena cava is poorly visualized. Electronically signed by : Rony Bey MD 03/17/2021 20:38:47
--- NOTE | 2021-03-17 07:24 | PC.NURSE ---
ECHO AT BEDSIDE
--- NOTE | 2021-03-17 11:31 | HMH.CNCARD ---
History of Present Illness Consult date: 03/17/21 Requesting physician: Ricky Pennington Consult reason: chest pain Chief complaint: Atypical chest pain History of present illness: 60-year-old female presented to the emergency room with pleuritic pain which radiates to the back. Patient states for the past 2 to 3 days she has been having a nonproductive cough and feels as though she has pneumonia. Patient states when she takes a deep breath in her chest begins to hurt. Patient states she was currently being treated for an upper respiratory infection. Patient denies any history of coronary artery disease. Patient does have history of hypertension, which is controlled. Patient does have history of palpitations. Upon arrival to the ED, EKG was noted to be abnormal in which it seemed to be consistent with ostial left main disease and ACF. Even though serial cardiac enzymes were negative, it was recommended patient to undergo left heart catheterization this a.m. Discussed with patient the risk and benefits of undergoing left heart catheterization with right radial access. Patient verbalized understanding and is agreeable to procedure. Pending on the results of the left heart catheterization, medication and treatment therapies may be recommended. Will obtain echocardiogram to assess LV function and valve status. Pending on the results of the echocardiogram, medication and treatment therapies may be recommended. Upper respiratory infection will be managed by PCP. [facility] History I have reviewed the patient's past medical history: Yes Medical History: Reports:: Arrhythmia, Hypertension, Palpitations Denies:: Cancer, Diabetes Mellitus Type 1, Diabetes Mellitus Type 2, Internal Pacemaker, MRSA, Seizures *Have you ever received a pneumonia vaccine?: Yes *Have you received a flu vaccine this season?: No Other Medical History: Reports: Anemia, Arthritis, Fibromyalgia, Sinus Problems Laterality Cases: Bilateral: Tonsillectomy Other Surgeries: Yes: Appendectomy, Cardiac Catheterization, Cholecystectomy, Colonoscopy, EGD, Hysterectomy-Total. No: Pacemaker Amputation: No Fractures: Yes (R 2nd toe, R index finger) - *Social History Smoking Status: Never smoker Alcohol Intake: never Substance Use Type: denies use *Occupational Status:: unemployed Housing: house Household Members: spouse *Travel in the last 8 weeks: Inside the [facility] Family Hx:: Cancer, Coronary Artery Disease, Diabetes, Heart Attack, Hyperlipidemia, Hypertension, Stroke, Thyroid Disorder, Other Meds Home Medications Medication Instructions Recorded Confirmed Type Aspirin [Aspirin 81mg EC Tab] 81 mg PO DAILY 10/16/19 02/05/21 History Tramadol HCl [Tramadol 50mg 50 mg PO TID PRN 10/16/19 02/05/21 History Tab] furosemide 20 mg tablet 20 mg PO DAILY tab 05/27/20 02/05/21 History pramipexole 0.5 mg tablet 0.5 mg PO HS PRN 05/27/20 02/05/21 History bisoprolol fumarate 5 mg tablet 5 mg PO DAILY tab 02/05/21 02/05/21 History omeprazole 40 mg capsule,delayed 40 mg PO DAILY cap 02/05/21 02/05/21 History release Allergies Allergy/AdvReac Type Severity Reaction Status Date / Time codeine Allergy Unknown Verified 02/05/21 13:15 Exam Vital signs and Labs for Last 24 Hours: Temp Pulse Resp BP Pulse Ox 97.3 F L 74 16 109/67 L 94 L 03/17/21 09:15 03/17/21 11:15 03/17/21 11:15 03/17/21 11:15 03/17/21 11:15 Laboratory Results - last 24 hr 03/17/21 05:00: WBC 7.0, RBC 4.32, Hgb 13.1, Hct 40.3, MCV 93.2, MCH 30.3, MCHC 32.5, RDW 13.6, Plt Count 327, MPV 8.3, Neut % (Auto) 65.0, Lymph % (Auto) 28.5, [place] % (Auto) 3.8, Eos % (Auto) 1.7, Baso % (Auto) 0.9, Neut # (Auto) 4.6, Lymph # (Auto) 2.0, [place] # (Auto) 0.3, Eos # (Auto) 0.1, Baso # (Auto) 0.1, ESR 49 H 03/17/21 05:00: Sodium 139, Potassium 3.8, Chloride 105, Carbon Dioxide 26, Anion Gap 11.8, BUN 6 L, Creatinine 0.70, Estimated Creat Clear 130, Estimated GFR 86, E
--- NOTE | 2021-03-17 13:30 | SUR.PHASEII ---
Dr. Pennington @ bedside to see pt
--- NOTE | 2021-03-17 13:34 | SUR.PHASEII ---
Annetta Evangelista RN called report to Destiny Lopez RN @ [facility].
--- NOTE | 2021-03-17 16:08 | HMH.HP ---
*Admission Date: 03/17/21 *Chief complaint: Left chest discomfort *History of present illness: Ms. Newell is a 60yo white female with history of HTN, GERD, IBS, Fibromyalgia, and mood disorder. She reports for the past 4-5 days she has been having a nonproductive cough and feels as though she has pneumonia. She had a telehealth visit with [facility] on 03/14/21 and was started on cefuroxime for her upper respiratory symptoms which included cough, intermittent fever, body aches, and congestion. Although she was encouraged to complete lab testing to determine the cause of her infection, she declined and requested only a course of antibiotic be sent. She describes starting with pleuritic left chest pain 2-3 days ago which has not improved with antibiotic which has progressed to constant left anterior lower chest discomfort which radiates to her left mid-back and is worse with coughing or movement. Unable to get relief at home, she presented to the [facility] ED. Upon arrival, EKG was noted to be abnormal although serial cardiac enzymes were negative. Chest x-ray was unremarkable. CT of the chest showed no evidence of pulmonary embolus and patchy bilateral airspace disease consistent with early pneumonia. Cardiology was consulted and it was recommended patient undergo left heart catheterization to which she was agreeable. At the time of this writing, patient is resting quietly in PACU. She continues with frequent cough and left chest discomfort radiating to her back. She denies any shortness of breath or dyspnea. She will be admitted for treatment of her community acquired pneumonia and pleurisy. [facility] History Medical History: Reports:: Arrhythmia, Depression, Gastroesophageal Reflux Disease(GERD), Hypertension, Palpitations Denies:: Cancer, Diabetes Mellitus Type 1, Diabetes Mellitus Type 2, Internal Pacemaker, MRSA, Seizures *Have you ever received a pneumonia vaccine?: Yes *Have you received a flu vaccine this season?: No Other Medical History: Reports: Anemia, Arthritis, Fibromyalgia, Sinus Problems Laterality Cases: Bilateral: Tonsillectomy Other Surgeries: Yes: Appendectomy, Cardiac Catheterization, Cholecystectomy, Colonoscopy, EGD, Hysterectomy-Total. No: Pacemaker Amputation: No Fractures: Yes (R 2nd toe, R index finger) - *Social History Smoking Status: Never smoker Alcohol Intake: never Substance Use Type: denies use *Occupational Status:: unemployed Housing: house Household Members: spouse *Travel in the last 8 weeks: Inside the [facility] Family Hx:: Cancer, Coronary Artery Disease, Diabetes, Heart Attack, Hyperlipidemia, Hypertension, Stroke, Thyroid Disorder, Other Review of Systems - Constitutional Reports body ache(s), Reports fever(s), Reports headache(s), Reports lack of energy - Eyes Denies change in vision - ENT Reports hoarseness, Reports nasal congestion, Reports nasal discharge, Reports post nasal drip, Reports sinus pain - *Cardiovascular Reports chest pain, Reports chest pain at rest, Reports chest pain with activity, Denies shortness of breath, Denies generalized swelling - *Respiratory Reports chest congestion, Reports cough, Reports pain on inspiration, Reports pain with cough - *Gastrointestinal Denies abdominal pain, Denies change in bowel habits, Denies loose stools, Denies nausea, Denies vomiting - *Genitourinary Denies difficulty urinating - *Neurologic Reports weakness, Denies headache(s), Denies seizure-like activity - Endocrine Denies rapid, pounding, or irregular heartbeat - Hematologic/Lymphatic Denies enlarged lymph nodes Meds Home Medications Medication Instructions Recorded Confirmed Type Aspirin [Aspirin 81mg EC Tab] 81 mg PO DAILY 10/16/19 03/17/21 History Tramadol HCl [Tramadol 50mg 50 mg PO TID PRN 10/16/19 03/17/21 History Tab] furosemide 20 mg tablet 20 mg PO DAILY tab 05/27/20 03/17/21 History bisoprolol fumarate 5 mg tablet 5 mg
--- NOTE | 2021-03-17 22:30 | PC.NURSE ---
No care needed
[2021-03-18 03:48] VITALS: BP 140/79; PULSE 66; RESP 16; TEMP 36.9; O2SAT 91
[2021-03-18 05:07] VITALS: BMI 36.4
--- NOTE | 2021-03-18 05:52 | PC.NURSE ---
Emptied trash and linens
[2021-03-18 06:34] LABS: Basophils % 0.1 % (0.1-2.0); Eosinophils % 0.1 % (0.1-12.0); Hematocrit 37.4 % (37.0-47.0); Hemoglobin 12.7 g/dL (12.2-16.2); Lymphocytes # 1.2 K/mm3 (0.7-4.5); Lymphocytes % 17.8 % (10-50); Mean Corpuscular HGB Conc 33.8 g/dL (31.8-35.4); Mean Corpuscular Hemoglobin 31.7 pg (27.0-31.2); Mean Corpuscular Volume 93.6 fl (81-99); Mean Platelet Volume 7.7 fl (7.4-10.4); Monocytes # 0.2 K/mm3 (0.1-1.0); Monocytes % 3.1 % (1.7-9.3); Neutrophils # 5.3 K/mm3 (1.8-7.8); Neutrophils % 78.9 % (37.0-80.0); Platelet Count 353 K/mm3 (142-424); Red Blood Count 3.99 M/mm3 (4.20-5.40); Red Cell Distribution Width 12.9 % (11.5-17.5); White Blood Count 6.8 K/mm3 (4.8-10.8)
[2021-03-18 06:47] LABS: Chloride 108 mmol/L (98-107); Sodium 142 mmol/L (136-145)
[2021-03-18 06:48] LABS: Potassium 3.5 mmoL/L (3.5-5.1)
[2021-03-18 06:50] LABS: Blood Urea Nitrogen 5 mg/dl (7-17); Creatinine Clearance Estimated 132 mL/min (50-200); Estimated Glomerular Filt Rate 86 ml/min (>60); GFR (African American) 104 ML/MIN (>60)
[2021-03-18 06:51] LABS: Anion Gap 10.5 mEq/L (5-15); Calcium 8.5 mg/dl (8.4-10.2); Carbon Dioxide 27 mmol/L (22.0-30.0); Chol/HDL Ratio 4.1 (1-3.5); Cholesterol 161 mg/dl (140-200); Glucose 160 mg/dl (74-100); HDL Cholesterol 39 mg/dl (40-60); Magnesium 2.1 mg/dl (1.6-2.3); Triglycerides 85 mg/dl (30-150); VLDL Cholesterol 17 mg/dL (0-40)
[2021-03-18 07:02] LABS: Direct LDL Cholesterol 97.28 mg/dL (100-129)
[2021-03-18 08:00] VITALS: BP 124/55; PULSE 87; RESP 18; TEMP 36.6; O2SAT 93; O2SAT 94
--- NOTE | 2021-03-18 08:23 | P.PN_ITS ---
Internal Medicine - PN: Subj *Date: 03/18/21 *Time: 08:23 Interval history: She is feeling much better this morning. Her pain has resolved and she feels her breathing has improved. She denies SOB. She ate a good breakfast and has been up to the bathroom ad isabella. She is eager for discharge. Exam Vital signs and Labs for Last 24 Hours: Temp Pulse Resp BP Pulse Ox 98.4 F 66 16 140/79 91 L 03/18/21 03:48 03/18/21 03:48 03/18/21 03:48 03/18/21 03:48 03/18/21 03:48 Laboratory Results - last 24 hr 03/18/21 05:52: WBC 6.8, RBC 3.99 L, Hgb 12.7, Hct 37.4, MCV 93.6, MCH 31.7 H, MCHC 33.8, RDW 12.9, Plt Count 353, MPV 7.7, Neut % (Auto) 78.9, Lymph % (Auto) 17.8, [place] % (Auto) 3.1, Eos % (Auto) 0.1, Baso % (Auto) 0.1, Neut # (Auto) 5.3, Lymph # (Auto) 1.2, [place] # (Auto) 0.2, Eos # (Auto) 0.0, Baso # (Auto) 0.0 03/18/21 05:52: Sodium 142, Potassium 3.5, Chloride 108 H, Carbon Dioxide 27, Anion Gap 10.5, BUN 5 L, Creatinine 0.70, Estimated Creat Clear 132, Estimated GFR 86, Est GFR ( Amer) 104, Glucose 160 H, Calcium 8.5, Magnesium 2.1, Triglycerides 85, Cholesterol 161, LDL Cholesterol Direct 97.28 L, VLDL Cholesterol 17, HDL Cholesterol 39 L, Cholesterol/HDL Ratio 4.1 H I & O for Last 24 hours: Intake & Output 03/15/21 03/16/21 03/17/21 03/18/21 11:59 11:59 11:59 11:59 Weight 210 lb 213 lb 6 oz - Constitutional no acute distress - *Routine HEENT Exam Head: Present: normocephalic, atraumatic ENT: Present: mucous membranes moist - *Routine Respiratory Exam Absent: respiratory distress Comments: improved air movement with scattered rhonchi and bibasilar rales L > R, no wheezing - *Routine Cardiovascular Exam Present: RRR - *Routine Abdominal Exam Present: soft, normoactive bowel sounds. Absent: tenderness, distended, guarding, rigid, mass - *Routine Extremities Exam Present: full ROM, pulses intact. Absent: edema, tenderness, extremity cold to touch - *Routine Neurological Exam Present: alert, oriented X3, moving all extremities, normal speech Assessment and Plan (1) Abnormal finding on EKG Status: Acute Category: Medical Code(s): R94.31 - Abnormal electrocardiogram [ECG] [EKG] (2) CAP (community acquired pneumonia) Status: Acute Qualifiers: Laterality: unspecified laterality Qualified Code(s): J18.9 - Pneumonia, unspecified organism Category: Medical Code(s): J18.9 - Pneumonia, unspecified organism (3) Pleurisy Status: Acute Category: Medical Code(s): R09.1 - Pleurisy (4) Dyspnea Status: Chronic Qualifiers: Dyspnea type: dyspnea on exertion Qualified Code(s): R06.00 - Dyspnea, unspecified Category: Medical Code(s): R06.00 - Dyspnea, unspecified (5) HTN (hypertension) Status: Chronic Qualifiers: Hypertension type: primary hypertension Qualified Code(s): I10 - Essential (primary) hypertension Category: Medical Code(s): I10 - Essential (primary) hypertension - Assessment and plan all Dx Assessment and Plan for all problems:: Per Dr. Pennington.
[2021-03-18 08:56] VITALS: BP 141/71; PULSE 70; RESP 18; TEMP 36.6
--- NOTE | 2021-03-18 09:14 | P.CONPHA_ITS ---
[facility] Pharmacy VTE Monitoring - Patient Demographics Admission date: 03/18/21 Report Date: 03/18/21 Time: 09:14 Allergies/Adverse Reactions: Patient Allergies codeine Allergy (Unknown, Verified 02/05/21 13:15) Height: 1.63 m Weight: 96.785 kg Patient Problems: Current Active Problems CAP (community acquired pneumonia) (Acute) Pleurisy (Acute) Abnormal finding on EKG (Acute) HTN (hypertension) (Chronic) Dyspnea (Chronic) - VTE Risk Labs: VTE Related Lab Results Hgb 12.7 g/dL (12.2-16.2) 03/18/21 05:52 Hct 37.4 % (37.0-47.0) 03/18/21 05:52 Plt Count 353 K/mm3 (142-424) 03/18/21 05:52 BUN 5 mg/dl (7-17) L 03/18/21 05:52 Creatinine 0.70 mg/dl (0.52-1.04) 03/18/21 05:52 Estimated Creat Clear 132 mL/min (50-200) 03/18/21 05:52 Clinical Trial Participant: No - Prophylaxis VTE Prophylaxis Ordered?: Yes Types of VTE Prophylaxis: TEDS Knee High
--- NOTE | 2021-03-18 09:22 | HMH.PHAINT ---
HOME MEDICATION LIST VERIFIED USING LIST FROM [facility] OFFICE AND PT INTERVIEW
--- NOTE | 2021-03-18 09:50 | SW/DCPLANNER ---
Dr Pennington has stated that plan for this patient is to return home today. Patient has no further needs at this time.
[2021-03-18 11:07] VITALS: BP 141/71; PULSE 70; RESP 18; TEMP 36.6; O2SAT 94
--- NOTE | 2021-03-19 13:19 | HMH.DCSUM ---
General - General Admission date:: 03/17/21 Discharge date: 03/18/21 HPI HPI: Ms. Newell is a 60yo white female with history of HTN, GERD, IBS, Fibromyalgia, and mood disorder. She reports for the past 4-5 days she has been having a nonproductive cough and feels as though she has pneumonia. She had a telehealth visit with [facility] REFUGIO Whiteside on 03/14/21 and was started on cefuroxime for her upper respiratory symptoms which included cough, intermittent fever, body aches, and congestion. Although she was encouraged to complete lab testing to determine the cause of her infection, she declined and requested only a course of antibiotic be sent. She describes starting with pleuritic left chest pain 2-3 days ago which has not improved with antibiotic which has progressed to constant left anterior lower chest discomfort which radiates to her left mid-back and is worse with coughing or movement. Unable to get relief at home, she presented to the [facility] ED. Upon arrival, EKG was noted to be abnormal although serial cardiac enzymes were negative. Chest x-ray was unremarkable. CT of the chest showed no evidence of pulmonary embolus and patchy bilateral airspace disease consistent with early pneumonia. Cardiology was consulted and it was recommended patient undergo left heart catheterization to which she was agreeable. At the time of this writing, patient is resting quietly in PACU. She continues with frequent cough and left chest discomfort radiating to her back. She denies any shortness of breath or dyspnea. She will be admitted for treatment of her community acquired pneumonia and pleurisy. Hospital Course Hospital Course: The patient was admitted for treatment of her community-acquired pneumonia and pleurisy. Her cardiac catheterization was negative. She was started on antibiotics, steroids, and NSAIDs. By 03/18/2021, she was feeling much better. Her pain had resolved and her breathing had improved. She was anxious for discharge and was stable to be discharged home on ibuprofen, Zithromax, and Robitussin. She will follow up with Dr. Pennington. Objective Vital signs: Temp Pulse Resp BP Pulse Ox 97.9 F 70 18 141/71 H 94 L 03/18/21 11:07 03/18/21 11:07 03/18/21 11:07 03/18/21 11:07 03/18/21 11:07 Narrative: - Constitutional no acute distress - *Routine HEENT Exam Head: Present: normocephalic, atraumatic Eye: Present: PERRL, normal accommodation ENT: Present: mucous membranes moist - *Routine Neck Exam Present: supple, full ROM. Absent: lymphadenopathy - *Routine Respiratory Exam Absent: respiratory distress Comments: good air movement with rhonchi and wheezes throughout, slightly diminished breath sounds and fine rales at left base, frequent cough with deep breathing - *Routine Cardiovascular Exam Present: RRR - *Routine Abdominal Exam Present: soft, normoactive bowel sounds. Absent: tenderness, distended, guarding, rigid, mass - *Routine Rectal Exam Rectal:: deferred - *Routine Genitalia Exam Genitalia:: deferred - *Routine Extremities Exam Present: full ROM, pulses intact. Absent: edema, calf tenderness, extremity cold to touch - *Routine Skin Exam Present: intact, dry, warm - *Routine Neurological Exam Present: alert, oriented X3, moving all extremities, normal speech Results Labs on day of discharge: Preliminary micro results at discharge 03/17/21 05:00 Blood Culture - Preliminary Blood NO GROWTH AFTER 48 HOURS 03/17/21 05:00 Blood Culture - Preliminary Blood NO GROWTH AFTER 48 HOURS DS: Diagnosis - Discharge Diagnosis (1) Abnormal finding on EKG Status: Acute (2) CAP (community acquired pneumonia) Status: Acute (3) Pleurisy Status: Acute (4) Dyspnea Status: Chronic (5) HTN (hypertension) Status: Chronic Discharge Plan - Patient Discharge Instructions ACTIVITY: Continue current activity DIET: advance
== END 2021-03-18 12:33 | disposition home or self-care (01) ==
LOC: ER 07:01 → CATHLAB 08:37 → 2ND 13:06
PROVIDERS: Internal Medicine; Admitting Provider Family Medicine; Emergency Provider Emergency Medicine; PCP Family Medicine; Visit Provider Family Medicine
DX: R07.9 Chest pain, unspecified (principal); J18.9 Pneumonia, unspecified organism; I10 Essential (primary) hypertension; K21.9 Gastro-esophageal reflux disease without esophagitis; Z79.899 Other long term (current) drug therapy; Z20.822 Contact with and (suspected) exposure to COVID-19
CPT/HCPCS: G0378; 36415; 71046; 71275; 80048; 80053; 80061; 81001; 83605; 83690; 83735; 84145; 84484; 85025; 85651; 87040; 93005; 93306; 93458; 96365; 96367; 99152; 99284; C1725; C1769; C9803; J0456; J1644; J2405; Q9967; U0003; U0005

== ENCOUNTER → 2022-06-26 14:50 | Outpatient (CLI) | payer MEDICARE, SELFPAY ==
--- NOTE | 2022-06-26 15:02 | MM_ITS ---
PROCEDURE INFORMATION: Exam: MG Bilateral Screening 3D Mammography Exam date and time: 06/26/2022 2:54 PM Age: 61 years old Clinical indication: Screening examination. Her maternal cousin had breast cancer. TECHNIQUE: Imaging protocol: Bilateral Screening tomosynthesis and 2D mammography including computer-aided detection (CAD) when performed. COMPARISON: 1. MG SCBI MM Dig screening mamm BI w/CAD 04/21/2017 8:33 AM 2. MG DMSB DIGITAL MAMM-SCREEN BILATERAL 06/11/2010 1:56 PM 3. MG DIGMAMMS MAMMOGRAM SCREEN-SURG PHYSICIAN ASST N/C 11/18/1998 2:14 PM FINDINGS: MAMMOGRAPHY: Breast composition: There are scattered areas of fibroglandular density. Mass: None. Architectural distortion: None. Calcifications: No suspicious calcifications. Asymmetric density: None. Skin thickening: None. Axillary adenopathy: None. IMPRESSION: No mammographic evidence of malignancy. Annual screening is recommended unless otherwise clinically indicated. ASSESSMENT: BI-RADS Category 1: Negative
== END ==
PROVIDERS: PCP Family Medicine; Visit Provider Family Medicine
DX: Z12.31 Encounter for screening mammogram for malignant neoplasm of breast (principal)
CPT/HCPCS: 77063; 77067

== ENCOUNTER 2023-09-22 08:07 | Outpatient (CLI) | payer MEDICARE, SELFPAY ==
--- NOTE | 2023-09-22 08:12 | MM_ITS ---
PROCEDURE INFORMATION: Exam: MG Bilateral Screening 3D Mammography Exam date and time: 09/22/2023 8:25 AM Age: 63 years old Clinical indication: Screening examination TECHNIQUE: Imaging protocol: Bilateral Screening tomosynthesis and 2D mammography including computer-aided detection (CAD) when performed. COMPARISON: 1. MG MM DIG SCREENING MAMM BI W/CAD 06/26/2022 2:54 PM 2. MG SCBI MM Dig screening mamm BI w/CAD 04/21/2017 8:33 AM FINDINGS: MAMMOGRAPHY: Breast composition: There are scattered areas of fibroglandular density. Mass: None. Architectural distortion: None. Calcifications: No suspicious calcifications. Asymmetric density: None. Skin thickening: None. Axillary adenopathy: None. IMPRESSION: No mammographic evidence of malignancy. Annual screening is recommended unless otherwise clinically indicated. ASSESSMENT: BI-RADS Category 1: Negative
--- NOTE | 2023-09-22 08:12 | XR_ITS ---
FINAL REPORT CLINICAL HISTORY: OSTEOPENIA COMPARISON: None FINDINGS: Using L1-4, the bone mineral density of the spine is 0.823 g/cm2, corresponding to T-score of -2.0 which is consistent with osteopenia. Using the left hip, the bone mineral density of the femoral neck is 0.637 g/cm2, corresponding to a T-score of -1.9 which is consistent with osteopenia. Using the right hip, the bone mineral density of the femoral neck is 0.656 g/cm2, corresponding to a T-score of -1.7 which is consistent with osteopenia. FRAX 10 year fracture risk is 0.9% for a hip fracture and 8.7% for a major osteoporotic fracture. NOTE: T-score: Standard deviation compared with peak bone mass of young adult mean. *Following the recommendations of the International Society of Bone densitometry, classification of hip BMD is based on the lower of two T-scores; total hip or femoral neck. IMPRESSION: Diminished bone mineral density consistent with osteopenia. Reviewed, Interpreted and Dictated by Ricky Sage MD Transcribed by Drea Vernon Authenticated and . [facility]
== END 2023-09-22 23:59 | disposition home or self-care (01) ==
LOC: RAD 08:08
PROVIDERS: PCP Family Medicine; Visit Provider Family Medicine
DX: N60.19 Diffuse cystic mastopathy of unspecified breast (principal); Z12.31 Encounter for screening mammogram for malignant neoplasm of breast; M85.89 Other specified disorders of bone density and structure, multiple sites
CPT/HCPCS: 77063; 77067; 77080

== ENCOUNTER 2023-10-07 12:09 | Outpatient (CLI) | payer MEDICARE, SELFPAY ==
[2023-10-07 12:38] LABS: Basophils # 0.1 K/mm3 (0-0.2); Eosinophils # 0.2 K/mm3 (0.0-0.4); Eosinophils % 3.7 % (0.1-12.0); Hematocrit 42.2 % (37.0-47.0); Hemoglobin 13.8 g/dL (12.2-16.2); Lymphocytes % 42.5 % (10-50); Mean Corpuscular HGB Conc 32.7 g/dL (31.8-35.4); Mean Corpuscular Hemoglobin 31.5 pg (27.0-31.2); Mean Corpuscular Volume 96.1 fl (81-99); Mean Platelet Volume 8.2 fl (7.4-10.4); Monocytes # 0.2 K/mm3 (0.1-1.0); Monocytes % 4.1 % (1.7-9.3); Neutrophils # 2.3 K/mm3 (1.8-7.8); Neutrophils % 48.6 % (37.0-80.0); Platelet Count 331 K/mm3 (142-424); Red Blood Count 4.39 M/mm3 (4.20-5.40); Red Cell Distribution Width 13.9 % (11.5-17.5); White Blood Count 4.7 K/mm3 (4.8-10.8)
[2023-10-07 13:11] LABS: Alanine Aminotransferase 18 U/L (12-78); Albumin Level 3.7 g/dl (3.5-5.0); Albumin/Globulin Ratio 1.5 (1.1-1.8); Alkaline Phosphatase 90 U/L (38-126); Anion Gap 8.1 mEq/L (5-15); Aspartate Amino Transferase 23 U/L (14-36); Bilirubin,Total 0.6 mg/dl (0.2-1.3); Blood Urea Nitrogen 10 mg/dl (7-17); Calcium 9.3 mg/dl (8.4-10.2); Carbon Dioxide 27 mmol/L (22.0-30.0); Chloride 108 mmol/L (98-107); Estimated Glomerular Filt Rate 73 ml/min (>60); GFR (African American) 88 ML/MIN (>60); Globulin 2.4 g/dL (1.3-3.2); Glucose 95 mg/dl (74-100); Potassium 4.1 mmoL/L (3.5-5.1); Sodium 139 mmol/L (136-145); Total Protein,Serum 6.1 g/dl (6.3-8.2); Uric Acid 6.5 mg/dl (2.5-6.2)
[2023-10-07 13:19] LABS: Erythrocyte Sedimentation Rate 20 mm/hr (0-30)
[2023-10-07 13:41] LABS: Thyroid Stimulating Hormone 2.27 uIU/mL (0.465-4.68)
[2023-10-09 05:23] LABS: RA Latex Turbid. <10.0 IU/mL (<14.0)
[2023-10-09 11:20] LABS: Lyme Ab CIA Negative (Negative)
[2023-10-11 11:54] LABS: Antinuclear Antibodies, IFA Negative (.)
== END 2023-10-07 23:59 | disposition home or self-care (01) ==
LOC: LAB 12:10
PROVIDERS: PCP Family Medicine; Visit Provider Physician Assistant
DX: R76.8 Other specified abnormal immunological findings in serum (principal); I10 Essential (primary) hypertension; R19.5 Other fecal abnormalities; R10.84 Generalized abdominal pain; R21 Rash and other nonspecific skin eruption
CPT/HCPCS: 36415; 80050; 80053; 84443; 84550; 85025; 85651; 86038; 86431; 86618

== ENCOUNTER 2024-01-04 13:45 | Outpatient (POV) | payer MEDICARE, SELFPAY | END 2024-01-04 23:59 | disposition home or self-care (01) | LOC: SC 01-05 06:38 | PROVIDERS: Visit Provider Dermatology | DX: Z00.00 Encounter for general adult medical examination without abnormal findings (principal) ==

== ENCOUNTER 2024-01-16 09:49 | Emergency (ER) | payer MEDICARE, SELFPAY ==
--- NOTE | 2024-01-16 09:57 | XR_ITS ---
PROCEDURE INFORMATION: Exam: XR Chest Exam date and time: 01/16/2024 10:03 AM Age: 63 years old Clinical indication: Cough and dyspnea and other: Congestion TECHNIQUE: Imaging protocol: Radiologic exam of the chest. Views: 2 views. COMPARISON: CT ANGIO CHEST PE PROTOCOL 03/17/2021 6:10 AM FINDINGS: Lungs: Small old calcified granuloma in the periphery of the left mid lung, otherwise the chest is clear. Pleural spaces: Unremarkable. No pleural effusion. No pneumothorax. Heart/Mediastinum: Unremarkable. No cardiomegaly. Bones/joints: Unremarkable. IMPRESSION: Radiographic evidence of acute cardiopulmonary disease.
[2024-01-16 10:07] VITALS: BP 140/96; PULSE 117; RESP 18; TEMP 36.8; O2SAT 96; BMI 36.6
--- NOTE | 2024-01-16 10:07 | ED_ITS ---
Discharge Plan Disposition Patient Disposition: Home, Self-Care Condition: Good Prescriptions Prescriptions: New benzonatate 100 mg capsule 100 mg PO TIDP PRN (Reason: Cough) Qty: 30 0RF amoxicillin-pot clavulanate 875-125 mg Tablet 1 tab PO Q12H Qty: 20 0RF methylprednisolone 4 mg Tablets,Dose Pack 4 mg PO DIRECTED 6 Days Qty: 21 0RF Rx Instructions: Take 1 pack as directed for 6 days No Action bisoprolol fumarate 5 mg tablet 5 mg PO DAILY omeprazole 40 mg capsule,delayed release(DR/EC) 40 mg PO DAILY tramadol 50 MG tablet 50 mg PO TIDP PRN (Reason: Moderate Pain) aspirin 81 MG tablet,delayed release (DR/EC) 81 mg PO DAILY furosemide 20 mg tablet 20 mg PO DAILY dextromethorphan-guaifenesin 10 ML syrup 5 ml PO Q4HP PRN (Reason: Cough) Qty: 250 0RF ibuprofen 600 MG tablet 600 mg PO Q6H Qty: 40 0RF azithromycin 500 MG tablet 500 mg PO DAILY Qty: 3 0RF Referrals Follow up/Referrals: Ricky Pennington MD [Primary Care Provider] - See instructions Activity Restrictions/Add. Instructions Additional Instructions/Restrictions: Drink plenty of fluids. Take tylenol or ibuprofen for pain or fever. Take the medications as directed. Follow up with your regular doctor. GO TO THE ER FOR ANY WORSENING SYMPTOMS Clinical Impressions Clinical Impression: Acute bronchitis Instructions Patient Instructions: Acute Bronchitis, DI for Acute Bronchitis Print Language Print Language: Divehi Discharge ED Provider: Octavio Newton [facility] [place] General Stated complaint: SOA, cough, chest congestion, pnemonia Time Seen by Provider: 01/16/24 10:07 Related Data Home Medications ?Medication ?Instructions ?Recorded ?Confirmed aspirin 81 mg tablet,delayed 81 mg PO DAILY Heart health 10/16/19 03/17/21 release tramadol 50 mg tablet 50 mg PO TIDP PRN Moderate Pain 10/16/19 03/18/21 furosemide 20 mg tablet 20 mg PO DAILY diuretic 05/27/20 03/17/21 bisoprolol fumarate 5 mg tablet 5 mg PO DAILY Hypertension 02/05/21 03/17/21 omeprazole 40 mg capsule,delayed 40 mg PO DAILY Heartburn 02/05/21 03/17/21 release Previous Rx's ?Medication ?Instructions ?Recorded azithromycin 500 mg tablet 500 mg PO DAILY #3 tabs 03/18/21 dextromethorphan-guaifenesin 10 5 ml PO Q4HP PRN Cough #250 mL 03/18/21 mg-100 mg/5 mL oral syrup ibuprofen 600 mg tablet 600 mg PO Q6H #40 tabs 03/18/21 amoxicillin 875 mg-potassium 1 tab PO Q12H #20 tabs 01/16/24 clavulanate 125 mg tablet benzonatate 100 mg capsule 100 mg PO TIDP PRN Cough #30 caps 01/16/24 methylprednisolone 4 mg tablets in 4 mg PO DIRECTED 6 days #21 tabs 01/16/24 a dose pack Allergies Allergy/AdvReac Type Severity Reaction Status Date / Time codeine Allergy Unknown Verified 02/05/21 13:15 [facility] Disclaimer: The information contained in this section may have been updated after the patient was seen, as this information can be updated by other users. Medical History (Updated 01/16/24 @ 10:44 by Octavio Newton APRN) Daytime somnolence Edema Palpitations Dyspnea Social History Smoking Status: Never smoker second hand exposure: Yes alcohol intake: never substance use type: denies use current occupational status: other Travel in the last 8 weeks: Inside the [place] household members: spouse housing: house current occupational exposures/hazards: No caffeine: No ROS Obtained: Yes All systems reviewed & no additional complaints except as documented Constitutional Constitutional: Reports poor appetite Eyes Eyes: Reports system reviewed and no additional complaints, except as documented ENT Ears, Nose, Mouth, and Throat: Reports as per HPI Cardiovascular Cardiovascular: Reports system reviewed and no additional complaints, except as documented and Denies chest pain Respiratory Respiratory: Denies shortness of breath, Reports chest congestion, Reports cough, Denies stridor and Denies wheezing Gastrointestinal Gastrointestingal: Reports system reviewed and no additional complaints, except as documented; Denies abdominal pain, diarrhea or vomiting Musculoskeletal Musculoskeletal: Reports system reviewed and no additional complaints, except as documented and Denies arthralgias Integumentary/Breasts Skin/Breast: Reports system reviewed and no additional complaints, except as documented and Denies rash Neurologic Neurologic: Denies paresthesias Allergic/Immunologic Allergic/Immunologic: Denies wheezing Physical Exam General General appearance: alert and in no apparent distress Eye Eye exam: Present normal appearance, PERRL and EOMI ENT ENT exam: Present mucous membranes moist and normal external ear exam Expanded ENT Exam External ear exam: Present normal external inspection TM/Canal exam: Bilateral TM: erythema and bulging Nose exam: Absent sinus tenderness Nasal speculum exam: Bilateral: normal Mouth exam: Present normal external inspection; Absent drooling Teeth exam: Present normal inspection Throat exam: Present tonsillar erythema and tonsillomegaly Neck Neck exam: Present normal inspection, full ROM and trachea midline; Absent tenderness, lymphadenopathy or thyromegaly Chest Chest inspection: Present normal inspection and symmetric chest wall rise; Absent tenderness or rash Respiratory Respiratory exam: Present normal lung sounds bilaterally; Absent respiratory distress, wheezes, stridor or accessory muscle use Cardiovascular Cardiovascular exam: Present regular rate, normal rhythm and normal heart sounds Abdominal Exam Abdominal exam: Present soft; Absent distention, tenderness, guarding, rebound or rigidity Extremities Exam Extremities exam: Present normal inspection, full ROM and normal capillary refill; Absent tenderness or calf tenderness Back Exam Back exam: Present normal inspection and full ROM; Absent tenderness Neurological Exam Neurological exam: Present alert and oriented X3 Psychiatric Psychiatric exam: Present normal affect and normal mood Skin Skin exam: Present warm, dry, intact and normal color Lymphatic Lymphatic Findings: no adenopathy Medical Decision Making Medical Records Medical records reviewed: No I reviewed the patient's medical records. Screening: Per USPSTF and CDC recommendations, given the prevalence of disease in our region, it is our hospital?s policy to screen for HIV and viral Hepatitis for all patients aged 18 and over and those with ongoing risk factors. Mauricio Inquiry Pt receiving controlled substance: No Orders (Tests/Meds): ORDERS Category Date Time Status Chest XR 2 view (NOT portable) [XR chest 2V] Stat Exams 01/16/24 09:57 Ordered
[2024-01-16 10:49] VITALS: BP 140/96; PULSE 117; RESP 18; TEMP 36.8
== END 2024-01-16 10:50 | disposition home or self-care (01) ==
PROVIDERS: Emergency Provider Nurse Practitioner Family; PCP Family Medicine
DX: J20.9 Acute bronchitis, unspecified (principal); R05.9 Cough, unspecified; R09.89 Other specified symptoms and signs involving the circulatory and respiratory systems
CPT/HCPCS: 71046; 99212; G0381

== ENCOUNTER 2024-09-11 11:15 | Outpatient (CLI) | payer MEDICARE, SELFPAY ==
--- OUTSIDE RECORDS SUMMARY | 2024-09-11 11:19 | XMS_ITS ---
Author Organization Unknown Medications Date Medication Dosage DosageUnit StartDate StopDate StopReason Active DoseQuantity DoseUnit Dispense DispenseUnit Refills NdcCode DrugCode PharmacyId IsPrescription MappedMedication Srcstatus 08/31 00:00 :00 Albuterol Sulfate HFA 108 (90 Base) MCG/ACT Aerosol Solution 05/26/2024 00:00:00 1 1 2 [id number] 4 287 P Taking 06/08 00:00 :00 Albuterol Sulfate HFA 108 (90 Base) MCG/ACT Aerosol Solution 05/26/2024 00:00:00 1 1 2 [id number] 4 287 P Taking 05/26 00:00 :00 Albuterol Sulfate HFA 108 (90 Base) MCG/ACT Aerosol Solution 05/26/2024 00:00:00 1 1 2 [id number] 4 287 P Start 05/24 00:00 :00 Albuterol Sulfate HFA 108 (90 Base) MCG/ACT Aerosol Solution 0 6.7 Gram 0 164778 74 287 Discontinu ed 03/23 00:00 :00 Albuterol Sulfate HFA 108 (90 Base) MCG/ACT Aerosol Solution 1 6.7 Gram 0 [id number] 74 287 Start 03/23 00:00 :00 Albuterol Sulfate HFA 108 (90 Base) MCG/ACT Aerosol Solution 0 1 1 [id number] 287 Stop 01/19 00:00 :00 Albuterol Sulfate HFA 108 (90 Base) MCG/ACT Aerosol Solution 01/20/2024 00:00:00 1 1 1 [id number] 4 287 P Start 01/19 00:00 :00 Amoxicillin -Pot Clavulanate 875-125 MG Tablet 0 [id number] 534 Stop 01/19 00:00 :00 Amoxicillin -Pot Clavulanate 875-125 MG Tablet 1 6 [id number] 534 Taking 08/31 00:00 :00 Aspirin 81 MG Tablet Delayed Release 1 30 [id number] 474 Taking 06/08 00:00 :00 Aspirin 81 MG Tablet Delayed Release 1 30 [id number] 474 Taking 05/24 00:00 :00 Aspirin 81 MG Tablet Delayed Release 1 30 [id number] 474 Taking 01/19 00:00 :00 Aspirin 81 MG Tablet Delayed Release 1 30 [id number] 474 Taking 10/17 00:00 :00 Aspirin 81 MG Tablet Delayed Release 1 30 [id number] 474 Taking 10/05 00:00 :00 Aspirin 81 MG Tablet Delayed Release 1 30 [id number] 474 Taking 08/31 00:00 :00 Benzonatate 200 MG Capsule 05/24/2024 00:00:00 1 30 1 [id number] 3 205 P Taking 06/08 00:00 :00 Benzonatate 200 MG Capsule 05/24/2024 00:00:00 1 30 1 [id number] 3 205 P Taking 05/24 00:00 :00 Benzonatate 200 MG Capsule 05/24/2024 00:00:00 1 30 1 [id number] 3 205 P Start 05/24 00:00 :00 Benzonatate 100 MG Capsule 0 009 67094 460 Discontinu ed 01/19 00:00 :00 Benzonatate 100 MG Capsule 1 009 00020 460 Taking 06/16 00:00 :00 Cartia XT 120 MG Capsule Extended Release 24 Hour 0 30 Capsule 0 67963746 100 Stop 06/08 00:00 :00 Cartia XT 120 MG Capsule Extended Release 24 Hour 1 30 Capsule 0 33321219 100 Taking 05/24 00:00 :00 Cartia XT 120 MG Capsule Extended Release 24 Hour 1 30 Capsule 0 [id number] 100 Taking 05/18 00:00 :00 Cartia XT 120 MG Capsule Extended Release 24 Hour 1 30 Capsule 0 56681691 100 Start 05/18 00:00 :00 Cartia XT 120 MG Capsule Extended Release 24 Hour 0 90 Capsule 0 [id number] 100 Stop 02/16 00:00 :00 Cartia XT 120 MG Capsule Extended Release 24 Hour 1 90 Capsule 0 [id number] 100 Start 02/16 00:00 :00 Cartia XT 120 MG Capsule Extended Release 24 Hour 0 90 Capsule 0 95656512 100 Stop 01/19 00:00 :00 Cartia XT 120 MG Capsule Extended Release 24 Hour 1 90 Capsule 0 71891274 100 P Taking 10/17 00:00 :00 Cartia XT 120 MG Capsule Extended Release 24 Hour 1 90 Capsule 0 [id number] 100 P Taking 10/05 00:00 :00 Cartia XT 120 MG Capsule Extended Release 24 Hour 1 90 Capsule 0 44471584 100 P Taking 06/08 00:00 :00 Cefdinir 300 MG Capsule 05/26/2024 00:00:00 0 20 Capsule 0 [id number] 006 P Discontinu ed 05/26 00:00 :00 Cefdinir 300 MG Capsule 05/26/2024 00:00:00 1 20 Capsule 0 [id number] 006 P Start 08/31 00:00 :00 Diclofenac Sodium 1 % Gel 06/10/2021 00:00:00 1 60 Gram 2 [id number] 6 510 P Taking 06/08 00:00 :00 Diclofenac Sodium 1 % Gel 06/10/2021 00:00:00 1 60 Gram 2 [id number] 6 510 P Taking 05/24 00:00 :00 Diclofenac Sodium 1 % Gel 06/10/2021 00:00:00 1 60 Gram 2 [id number] 6 510 P Taking 01/19 00:00 :00 Diclofenac Sodium 1 % Gel 06/10/2021 00:00:00 1 60 Gram 2 [id number] 6 510 P Taking 10/17 00:00 :00 Diclofenac Sodium 1 % Gel 06/10/2021 00:00:00 1 60 Gram 2 [id number] 6 510 P Taking 10/05 00:00 :00 Diclofenac Sodium 1 % Gel 06/10/2021 00:00:00 1 60 Gram 2 [id number] 6 510 P Taking 08/31 00:00 :00 dilTIAZem HCl ER Coated Beads 120 MG Capsule Extended Release 24 Hour 1 30 Capsule 0 92782790 890 P Taking 08/02 00:00 :00 dilTIAZem HCl ER Coated Beads 120 MG Capsule Extended Release 24 Hour 1 30 Capsule 0 75625565 890 P Unknown Status 08/02 00:00 :00 dilTIAZem HCl ER Coated Beads 120 MG Capsule Extended Release 24 Hour 1 30 Capsule 0 96234003 890 Start 08/02 00:00 :00 dilTIAZem HCl ER Coated Beads 120 MG Capsule Extended Release 24 Hour 0 30 Capsule 0 81901998 890 Stop 06/16 00:00 :00 dilTIAZem HCl ER Coated Beads 120 MG Capsule Extended Release 24 Hour 1 30 Capsule 0 30756856 890 Start 06/08 00:00 :00 Doxepin HCl 10 MG Capsule 08/12/2023 00:00:00 0 60 2 2808826 4 901 P Discontinu ed 05/24 00:00 :00 Doxepin HCl 10 MG Capsule 08/12/2023 00:00:00 1 60 2 2032817 4 901 P Taking 01/19 00:00 :00 Doxepin HCl 10 MG Capsule 08/12/2023 00:00:00 1 60 2 [id number] 4 901 P Taking 10/17 00:00 :00 Doxepin HCl 10 MG Capsule 08/12/2023 00:00:00 1 60 2 2124810 4 901 P Taking 10/05 00:00 :00 Doxepin HCl 10 MG Capsule 08/12/2023 00:00:00 1 60 2 [id number] 4 901 P Taking 12/22 00:00 :00 Famotidine 40 MG Tablet 1 30 2 933378 72 960 Start 12/22 00:00 :00 Famotidine 40 MG Tablet 0 30 2 691493 72 960 Stop 10/17 00:00 :00 Famotidine 40 MG Tablet 1 30 2 676130 72 960 Taking 10/05 00:00 :00 Famotidine 40 MG Tablet 1 30 2 965070 72 960 Taking 09/20 00:00 :00 Famotidine 40 MG Tablet 1 30 2 955250 72 960 Start 09/20 00:00 :00 Famotidine 40 MG Tablet 0 30 3 636772 72 960 Stop 08/31 00:00 :00 Fluticasone Propionate 50 MCG/ACT Suspension 1 16 Gram 2 42542 327 099 Taking 06/08 00:00 :00 Fluticasone Propionate 50 MCG/ACT Suspension 1 16 Gram 2 41735 327 099 Taking 05/24 00:00 :00 Fluticasone Propionate 50 MCG/ACT Suspension 1 16 Gram 2 52860 327 099 Taking 01/19 00:00 :00 Fluticasone Propionate 50 MCG/ACT Suspension 1 16 Gram 2 46453 327 099 Taking 12/22 00:00 :00 Fluticasone Propionate 50 MCG/ACT Suspension 1 16 Gram 2 28762 327 099 Start 12/22 00:00 :00 Fluticasone Propionate 50 MCG/ACT Suspension 0 2571624 7 099 Stop 10/17 00:00 :00 Fluticasone Propionate 50 MCG/ACT Suspension 1 6600496 7 099 Taking 10/05 00:00 :00 Fluticasone Propionate 50 MCG/ACT Suspension 1 2016828 7 099 Taking 08/31 00:00 :00 Furosemide 20 MG Tablet 1 90 Tablet 1 0 9110372 725 Taking 06/08 00:00 :00 Furosemide 20 MG Tablet 1 90 Tablet 1 0 2423428 725 Taking 05/24 00:00 :00 Furosemide 20 MG Tablet 1 90 Tablet 1 0 6728536 725 Taking 04/14 00:00 :00 Furosemide 20 MG Tablet 1 90 Tablet 1 0 6577071 725 Start 04/14 00:00 :00 Furosemide 20 MG Tablet 0 90 Tablet 1 0 3203968 725 Stop 01/19 00:00 :00 Furosemide 20 MG Tablet 1 90 Tablet 1 0 6823895 725 Taking 10/17 00:00 :00 Furosemide 20 MG Tablet 1 90 Tablet 1 0 9765204 725 Taking 10/05 00:00 :00 Furosemide 20 MG Tablet 1 90 Tablet 1 0 1133951 725 Taking 09/13 00:00 :00 Furosemide 20 MG Tablet 1 90 Tablet 1 0 4718095 725 Start 09/13 00:00 :00 Furosemide 20 MG Tablet 0 90 Tablet 1 0 1590459 725 Stop 08/31 00:00 :00 Hydroxychlo roquine Sulfate 100 MG Tablet 1 Esteban farias 06/08 00:00 :00 Hydroxychlo roquine Sulfate 100 MG Tablet 1 Esteban farias 10/17 00:00 :00 Ketoconazol e 2 % Cream 02/09/2023 00:00:00 0 1 0 [id number] 1 915 P Not Taking 10/05 00:00 :00 Ketoconazol e 2 % Cream 02/09/2023 00:00:00 0 1 0 [id number] 1 915 P Not Taking 08/31 00:00 :00 levoFLOXaci n 750 MG Tablet 06/08/2024 00:00:00 1 7 Tablet 0 723593 35 361 P Taking 06/08 00:00 :00 levoFLOXaci n 750 MG Tablet 06/08/2024 00:00:00 1 7 Tablet 0 347331 35 361 P Start 10/17 00:00 :00 levoFLOXaci n 500 MG Tablet 02/23/2023 00:00:00 0 7 Tablet 0 573570 79 101 P Not Taking 10/05 00:00 :00 levoFLOXaci n 500 MG Tablet 02/23/2023 00:00:00 0 7 Tablet 0 300452 79 101 P Not Taking 05/24 00:00 :00 methylPREDN ISolone 4 MG Tablet 0 60 46186 459 321 Discontinu ed 01/19 00:00 :00 methylPREDN ISolone 4 MG Tablet 1 60 17432 459 321 Taking 05/24 00:00 :00 Nystatin 032899 UNIT/ML Suspension 01/26/2024 00:00:00 0 200 mL 1 3236547 6 800 P Discontinu ed 01/24 00:00 :00 Nystatin 582068 UNIT/ML Suspension 01/26/2024 00:00:00 1 200 mL 1 [id number] 6 800 P Start 08/31 00:00 :00 Omeprazole 40 MG Capsule Delayed Release 1 90 Capsule 0 84102612 710 Taking 08/15 00:00 :00 Omeprazole 40 MG Capsule Delayed Release 1 90 Capsule 0 76567922 710 Start 08/15 00:00 :00 Omeprazole 40 MG Capsule Delayed Release 0 90 1 85353291 401 Stop 06/08 00:00 :00 Omeprazole 40 MG Capsule Delayed Release 1 90 1 46151885 401 Taking 05/24 00:00 :00 Omeprazole 40 MG Capsule Delayed Release 1 90 1 99643814 401 Taking 02/09 00:00 :00 Omeprazole 40 MG Capsule Delayed Release 1 90 1 99925312 401 Start 02/09 00:00 :00 Omeprazole 40 MG Capsule Delayed Release 0 90 1 30155053 401 Stop 01/19 00:00 :00 Omeprazole 40 MG Capsule Delayed Release 1 90 1 39428456 401 Taking 10/17 00:00 :00 Omeprazole 40 MG Capsule Delayed Release 1 90 1 47556139 401 Taking 10/05 00:00 :00 Omeprazole 40 MG Capsule Delayed Release 1 90 1 54712904 401 Taking 08/31 00:00 :00 Pilocarpine HCl 5 MG Tablet 1 90 9956512 2 201 Taking 06/08 00:00 :00 Pilocarpine HCl 5 MG Tablet 1 90 5557860 2 201 Taking 10/17 00:00 :00 Pramipexole Dihydrochlo ride 0.25 MG Tablet 0 40186 670 461 Not Taking 10/05 00:00 :00 Pramipexole Dihydrochlo ride 0.25 MG Tablet 0 73881 670 461 Not Taking 10/17 00:00 :00 Premarin 0.3 MG Tablet 09/21/2022 00:00:00 0 30 5 7327106 0 081 P Not Taking 10/05 00:00 :00 Premarin 0.3 MG Tablet 09/21/2022 00:00:00 0 30 5 [id number] 0 081 P Not Taking 06/08 00:00 :00 Promethazin e-DM 6.25-15 MG/5ML Syrup 05/24/2024 00:00:00 0 240 mL 1 0391106 5 701 P Discontinu ed 05/24 00:00 :00 Promethazin e-DM 6.25-15 MG/5ML Syrup 05/24/2024 00:00:00 1 240 mL 1 [id number] 5 701 P Start 05/24 00:00 :00 Promethazin e-DM 6.25-15 MG/5ML Syrup 01/20/2024 00:00:00 0 240 ml 0 9845144 0 405 P Discontinu ed 01/19 00:00 :00 Promethazin e-DM 6.25-15 MG/5ML Syrup 01/20/2024 00:00:00 1 240 ml 0 7612460 0 405 P Start 10/17 00:00 :00 Reclast 5 MG/100M L Solution 0 1 0 68114680 561 P Not Taking 10/05 00:00 :00 Reclast 5 MG/100M L Solution 0 1 0 65627279 561 P Not Taking 08/31 00:00 :00 Restasis 0.05 % Emulsion 1 84254 916 330 Taking 06/08 00:00 :00 Restasis 0.05 % Emulsion 1 03049 916 330 Taking 10/17 00:00 :00 Restasis 0.05 % Emulsion 1 10 Millilite r 3 56903653 330 Taking 10/05 00:00 :00 Restasis 0.05 % Emulsion 1 10 Millilite r 3 01182048 330 Taking 10/17 00:00 :00 Retin-A 0.025 % Cream 11/16/2022 00:00:00 0 45 Gram 1 [id number] 6 020 P Not Taking 10/05 00:00 :00 Retin-A 0.025 % Cream 11/16/2022 00:00:00 0 45 Gram 1 [id number] 6 020 P Not Taking 08/31 00:00 :00 traMADol HCl 50 MG Tablet 05/17/2024 00:00:00 1 90 1 [id number] 0 101 P Taking 06/08 00:00 :00 traMADol HCl 50 MG Tablet 05/17/2024 00:00:00 1 90 1 [id number] 0 101 P Taking 05/24 00:00 :00 traMADol HCl 50 MG Tablet 05/17/2024 00:00:00 1 90 1 [id number] 0 101 P Taking 05/16 00:00 :00 traMADol HCl 50 MG Tablet 05/17/2024 00:00:00 1 90 1 [id number] 0 101 P Unknown Status 01/19 00:00 :00 traMADol HCl 50 MG Tablet 11/16/2023 00:00:00 1 90 1 [id number] 0 101 P Taking 11/15 00:00 :00 traMADol HCl 50 MG Tablet 11/16/2023 00:00:00 1 90 1 [id number] 0 101 P Unknown Status 10/17 00:00 :00 traMADol HCl 50 MG Tablet 05/20/2023 00:00:00 1 90 1 [id number] 0 101 P Taking 10/05 00:00 :00 traMADol HCl 50 MG Tablet 05/20/2023 00:00:00 1 90 1 [id number] 0 101 P Taking 08/31 00:00 :00 Vitamin B12 1000 MCG Tablet Extended Release 08/12/2023 00:00:00 1 90 Tablet 3 03908 017 252 P Taking 06/08 00:00 :00 Vitamin B12 1000 MCG Tablet Extended Release 08/12/2023 00:00:00 1 90 Tablet 3 58829 017 252 P Taking 05/24 00:00 :00 Vitamin B12 1000 MCG Tablet Extended Release 08/12/2023 00:00:00 1 90 Tablet 3 27773 017 252 P Taking 01/19 00:00 :00 Vitamin B12 1000 MCG Tablet Extended Release 08/12/2023 00:00:00 1 90 Tablet 3 20992 017 252 P Taking 10/17 00:00 :00 Vitamin B12 1000 MCG Tablet Extended Release 08/12/2023 00:00:00 1 90 Tablet 3 14142 017 252 P Taking 10/05 00:00 :00 Vitamin B12 1000 MCG Tablet Extended Release 08/12/2023 00:00:00 1 90 Tablet 3 19122 017 252 P Taking 05/24 00:00 :00 Zithromax Z-Russell 250 MG Tablet 01/20/2024 00:00:00 0 1 0 5656353 6 075 P Discontinu ed 01/19 00:00 :00 Zithromax Z-Russell 250 MG Tablet 01/20/2024 00:00:00 1 1 0 9712008 6 075 P Start 10/17 00:00 :00 Zovirax 5 % Cream 12/22/2022 00:00:00 0 5 Gram 1 6209425 9 445 P Not Taking 10/05 00:00 :00 Zovirax 5 % Cream 12/22/2022 00:00:00 0 5 Gram 1 8086748 9 445 P Not Taking
[2024-09-11 11:49] LABS: Blood Urea Nitrogen 13 mg/dl (7-17); Estimated Glomerular Filt Rate 72 ml/min (>60); GFR (African American) 88 ML/MIN (>60)
== END 2024-09-11 23:59 | disposition home or self-care (01) ==
LOC: LAB 11:16
PROVIDERS: PCP Family Medicine; Visit Provider Family Medicine
DX: Z00.00 Encounter for general adult medical examination without abnormal findings (principal)
CPT/HCPCS: 36415; 82565; 84520

== ENCOUNTER 2024-09-12 13:48 | Outpatient (CLI) | payer MEDICARE, SELFPAY ==
--- NOTE | 2024-09-12 13:51 | MR_ITS ---
FINAL REPORT CLINICAL HISTORY: TRIGEMINAL NERVE DISORDER. LEFT SIDED FACIAL PAIN AND DROP. SWELLING ON LEFT SIDE OF FACE WITH NUMBNESS ON LEFT SIDE OF MOUTH. SYMPTOMS [id number] COMPARISON: None FINDINGS: Multiplanar MR imaging of the brain was performed without and with contrast. There are scattered foci of increased T2 signal in the deep white matter seen bilaterally. No discrete lesion is seen in the brainstem. There is no evidence of intracranial hemorrhage or mass. No abnormal extra-axial fluid collection is seen. The ventricular size is within normal limits. There is no evidence of shift of the midline structures. The posterior fossa and brainstem have an unremarkable appearance. No area of abnormal restricted diffusion is identified. No abnormal contrast enhancement is seen. Normal major vessel vascular flow voids are noted. IMPRESSION: No acute intracranial abnormality identified. Scattered foci of increased T2 signal in the deep white matter, bilateral, in this age group most likely secondary to mild changes of ischemic microvascular disease. Reviewed, Interpreted and Dictated by Damián Vázquez MD Transcribed by Shy Barrera Authenticated and [facility]
[2024-09-12] MEDS: SODIUM CHLORIDE 0.9% 10ML SYR (RAD ONLY) 10 ML IV (14:49)
[2024-09-12] MEDS: GADOTERIDOL INJ 20ML SYRINGE 19 ML IV (14:55)
== END 2024-09-12 23:59 | disposition home or self-care (01) ==
LOC: RAD 13:49
PROVIDERS: PCP Family Medicine; Visit Provider Family Medicine
DX: G50.9 Disorder of trigeminal nerve, unspecified (principal)
CPT/HCPCS: 70553; A9576

== ENCOUNTER 2024-12-20 09:53 | Outpatient (CLI) | payer MEDICARE, SELFPAY ==
--- OUTSIDE RECORDS SUMMARY | 2024-05-24 06:45 | XMS_ITS ---
Author Organization [facility] Address [address] [place] [id number] Care Team Providers Care Director Patient Accounting Name Role Phone Keira Pennington Primary Care Provider Mine Plummer Unavailable [phone] Allergies Allergen (clinical drug ingredient) Drug/Non Drug [...] 05/24/2024 Encounters Encounter Location Date Provider Diagnosis [facility] [address] [facility] [address] [place] [address], [place] [id number] 05/24/2024 Mine Plummer Acute URI J06.9 and [...] [address], [address], [place], [place], [id number], Progress Notes * STAN FANDOB:1960 (64 yo F)Acc No.[id number]:05/24/2024 Progress Notes Patient: STAN COWAN Provider: REFUGIO Damico :1960 A ge:63 Y S ex:Female Date:05/24/2024 Address:[address], [place], [place] Pcp:Keira Pennington Subjective: * Chief Complaints: * [...] Orally every 12 hrs , Discontinued Nystatin 660038 UNIT/ML Suspension 5 mL swish and spit [...] * Procedure Codes: 9 4760 [place], [address] CAPILLARY BLOOD DRAW, 76341 CBC WITH AUTO DIFF, 3074F SYST BP LT 130 MM HG, 3079F DIAST BP 80-89 MM HG * Follow Up: v ia phone to report test results * Images: Billing Information: * Visit Code: 34477 Office Visit, Est Pt., Level 3. * Procedure Codes: [address] [place] [address] CAPILLARY BLOOD DRAW. 36007 CBC WITH AUTO DIFF. 3074F SYST BP LT 130 MM HG. 3079F DIAST BP 80-89 MM HG. * Electronic signature of REFUGIO Ortiz on 12/20/2024 at 10:04 AM EDT Sign off status: Pending * Provider: REFUGIO Damico Date: 0 05/24/2024 Generated for Tommy welsh/Fajanine/eTransmitting on: 0 12/20/2024 10:04 AM EDT History and Physical Notes * [...]
--- OUTSIDE RECORDS SUMMARY | 2024-06-08 10:45 | XMS_ITS ---
Author Organization [facility] Address [address] [place] [id number] Care Team Providers Care Felting Machine Operator Name Role Phone Keira Pennington Primary Care [...] Interpretation:Normal Performing Lab: Notes/Report: Test performed by [email or web address], [employer] [address] [place] [address] , [address], [place] [address] Milton Self MD, Sales Negotiator CLIA: [id number] Sodium 141 135-145 mmol/L Potassium 4.3 3.5-5.3 [...] day; Duration: 30 day(s) Active Vital Signs Blood pressure systolic 114 mm Hg 06/09/19 25 Blood pressure diastolic 84 mm Hg 025 Heart Rate 83 /min 06/08/2024 Height 64.50 in 06/08/2024 Weight 223.4 lbs 06/08/2024 BMI 37.75 kg/m2 06/08/2024 Encounters Encounter Location Date Provider Diagnosis Jessica 1210 [facility] 36 [facility] [address] [place] [id number] 06/08/2024 Keira Pennington Bronchitis J40 ; Essential [...] 2 Months, Reason: Provider Name:Keira Albarran er, 12/28/2024 04:15:00 PM, 12[address] [facility] 36 [facility], [address], [place], [phone], Procedure Notes * Category Sub-Category Detail Notes Cryotherapy Benign Lesion Method: Wallac h LL 100 used to freeze and refreeze the lesions Post-Op Instruction: clean wound with vi odell water twice a day , Apply Vaseline twice a day to wound Progress Notes * STAN FANDOB:1960 (64 yo F)Acc No.[id number]:06/08/2024 Progress Notes Patient: Soy STAN ROSE Provider: Keira Pennington M.D. :1960 A ge:63 Y S ex:Female Date:06/08/2024 Address:[facility] [address] [id number] Subjective: * Chief Complaints: * 1 . [...] 7000 DESTRUCTION BENIGN LESION, CRYOSURGERY,ELECTROSURGERY FIRST LESION, 54376 DESTRUCTION BENIGN LESION,CRYO, ELECTRO, 2-14 LESIONS, G2211 Complex e/[place], [address] [place], [address] CAPILLARY BLOOD DRAW, 38903 CBC WITH AUTO DIFF, 3074F SYST BP LT 130 MM HG, 3079F DIAST BP 80-89 MM HG * Follow Up: 2 Months * Images: Billing Information: * Visit Code: 33126 Office Visit, Est Pt., Level 4. Modifiers: 25 * Procedure Codes: 67080 DESTRUCTION BENIGN LESION, CRYOSURGERY,ELECTROSURGERY FIRST LESION. 20840 DESTRUCTION BENIGN LESION,CRYO, ELECTRO, 2-14 LESIONS. G2211 Complex e/[place]. [address] [place]. [address] CAPILLARY BLOOD DRAW. 09469 CBC WITH AUTO DIFF. 3074F SYST BP LT 130 MM HG. 3079F DIAST BP 80-89 MM HG. * Electronic signature of Keira Pennington MD on 12/20/2024 at 10:03 AM EDT Sign off status: Pending * Provider: Keira Pennington M.D. Date: 0 06/08/2024 Generated for Tommy welsh/Osmani/eTransmitting on: 0 12/20/2024 10:03 AM EDT History and Physical Notes * [...]
--- OUTSIDE RECORDS SUMMARY | 2024-08-31 05:30 | XMS_ITS ---
Author Organization [facility] Address [address] [place] [id number] Care Team Providers Care Agricultural Chemicals Inspector Name Role Phone Keira Pennington Primary Care Provider [phone] Trev Mata Unavailable [phone] Allergies Allergen (clinical drug ingredient) Drug/Non Drug [...] 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) [facility] Referring Provider First Name Trev Hernandez Referring Provider Last Name Adolfo Referring Provider Speciality Family [facility] Referred Provider Fallon Ford Referred Provider Specialty Neurology General Notes Briseida Ibarra 2024 08:54:07 AM > faxed to [facility] Neurology Referral Priority Routine REASON [...] Status Risk Notes Problem Obese class II ([id number] 105) BMI 36.0-36.9,a dult (Z68.36) Active confirmed Vital Signs Blood pressure systolic 120 mm Hg 09/01/19 25 Blood pressure diastolic 76 mm Hg 025 Heart Rate 70 /min 08/31/2024 Height 64.50 in 08/31/2024 Weight 215 lbs 08/31/2024 BMI 36.33 kg/m2 08/31/2024 Encounters Encounter Location Date Provider Diagnosis [facility] [address] [id number] 08/31/2024 R David Mata Trigeminal nerve disorder [...] [address], [address], [place], [place], [id number], Progress Notes * STAN FANDOB:1960 (64 yo F)Acc No.[id number]:08/31/2024 Progress Notes Patient: STAN COWAN Provider: Trev Mata M.D. :1960 A ge:64 Y S ex:Female Date:08/31/2024 Address:[facility] [address], [place], [id number] Pcp:Keira Pennington Subjective: * Chief Complaints: * [...] the left mandible primarily that radiates to caodaism and neck. It sometimes feels like her [...] hronic fatigue - R53.82 3 . B [place] 36.0-36.9,adult - Z68.36 Plan: * Treatment: ? Referral To:Fallon Ford??Neurology ?Reason:facial pain and numbness * Procedure Codes: G 2211 Complex e/m visit add on, G8752 MOST RECENT SYSTOLIC BP < 140MM HG, G8754 MOST RECENT DIASTOLIC BP < 90MM HG, 1036F TOBACCO NON-USER * Follow Up: v ia phone to report test results * Images: Billing Information: * Visit Code: 43732 Office Visit, Est Pt., Level 4. * Procedure Codes: G2211 Complex e/m visit add on. G8752 MOST RECENT SYSTOLIC BP < 140MM HG. G8754 MOST RECENT DIASTOLIC BP < 90MM HG. 1036F TOBACCO NON-USER. * Electronic signature of Trev Mata MD on 12/20/2024 at 10:04 AM EDT Sign off status: Pending * Provider: Trev Mata M.D. Date: 0 08/31/2024 Generated for Yevgeniyi anitha/Osmani/eTtannersmitting on: 0 12/20/2024 10:04 AM EDT History [...] the left mandible primarily that radiates to caodaism and neck. It sometimes feels like her [...]
--- OUTSIDE RECORDS SUMMARY | 2024-11-30 11:30 | XMS_ITS ---
Author Organization [facility] Address [address] [facility] [address] [place] [id number] Care Team Providers Care Recovery Manager Name Role Phone Keira Pennington Primary [...] Interpretation:Normal Performing Lab: Notes/Report: Test performed by [facility] [address] , [address], [place] [address] Milton Self MD, Plastic Molder CLIA: [id number] TSH reflex to FT4 0.96 0.43-5.25 mU/L [...] W/U Status Risk Notes Problem Essential hypertension (17564802) Essential hypertension (I10) Active confirmed Vital Signs Blood pressure systolic 162 mm Hg 12/01/19 25 Blood pressure diastolic 100 mm Hg 025 Heart Rate 61 /min 11/30/2024 Height 64.50 in 11/30/2024 Weight 210.2 lbs 11/30/2024 BMI 35.52 kg/m2 11/30/2024 Encounters Encounter Location Date Provider Diagnosis [facility] [address] [facility] [address] [facility] [address] [place] [id number] 11/30/2024 Keira Pennington Essential hypertensi on I10 [...] 4 Weeks, Reason: Provider Name:Keira Albarran er, 12/28/2024 04:15:00 PM, [address] [facility] [address] [facility], [address], [place], [id number], Progress Notes * MARISELA FAN:1960 (64 yo F)Acc No.[id number]:11/30/2024 Progress Notes Patient: STAN COWAN Provider: Keira Pennington M.D. :1960 A ge:64 Y S ex:Female Date:11/30/2024 [facility] [address] [place], [phone] Subjective: * Chief Complaints: * 1 . [...] FT4 0.96 0.43-5.25 - mU/L * Bri Chu 12/05/2024 10:2 7:32 AM EDT > See phone encounter * Procedure Codes: G 2211 Complex e/m visit add on, 1036F TOBACCO NON-USER * Follow Up: 4 Weeks * Images: Billing Information: * Visit Code: 97765 Office Visit, Est Pt., Level 4. * Procedure Codes: G2211 Complex e/m visit add on. 1036F TOBACCO NON-USER. * Electronic signature of Keira Pennington MD on 12/20/2024 at 10:03 AM EDT Sign off status: Pending * Provider: Keira Pennington M.D. Date: 11/30/2024 Generated for Tommy welsh/Osmani/eTransmitting on: 0 12/20/2024 [...]
--- OUTSIDE RECORDS SUMMARY | 2024-12-12 06:15 | XMS_ITS ---
Author Organization [facility] Address [address] [facility] [address] [place] [id number] Care Team Providers Care [facility] Manager Name Role Phone Keira Pennington Primary Care Provider [phone] Sri Noble Unavailable [phone] Allergies Allergen (clinical drug ingredient) Drug/Non Drug Allergy documented on EMR Reaction Allergy Type Onset Date Status celecoxib CeleBREX rash Drug Allergy Active duloxetine Cymbalta Unknown Drug Allergy Active Ziac Unknown Drug Allergy Active codeine Codeine Unknown Drug Allergy Active Results Component Value Reference Range Notes P-Comprehensive Metabolic Pa rell (CMP) (Not yet reviewed by provider) Interpretation: Performing Lab: Notes/Report: Test performed by [employer], [employer] [address] [place] [address] , [address], [place] [address] Milton Self MD, Assembler [employer] CLIA: [id number] Sodium 140 135-145 mmol/L Potassium 4.8 3.5-5.3 [...] Provider Last Name Real Referring [facility] Referred Organization [facility] OP Referred Provider WILDER BRYSON Referred Address [address] [facility] [address] [place],[id number], Referred Provider Specialty Gastroentero logy General Notes Briseida Ibarra 2024 12:53:49 PM > faxed to [facility] GI Referral Priority Routine REASON FOR VISIT [...] 12/12/2024 Encounters Encounter Location Date Provider Diagnosis [facility] [address], [place] [id number] 12/12/2024 Sri Noble Abdominal pain R10.9 ; [...] WILDER MANRIQUEZ, [address], [place], [place], [id number], Next Appt Details Follow Up: after tests, Reas on: Provider Name:Keira Albarran er, 12/28/2024 04:15:00 PM, [address] [facility] 36 [facility], [address], [place], [place], [phone], Progress Notes * STAN FANDOB:1960 (64 yo F)Acc No.[id number]:12/12/2024 Progress Notes Patient: STAN COWAN Provider: ESE Yin :1960 A ge:64 Y S ex:Female Date:12/12/2024 Address:[facility] [address], [place], [id number] Pcp:Keira ePnnington Subjective: * Chief Complaints: * 1 . [...] ?Imaging: CT Scan : Abd with contrast* StaceyAkhilnn 12/12/2024 11:1 7:56 AM EDT > auth#[id number]; valid 12/12/2024-02/10/2025; CPT code 39951; faxed to [facility] Scheduling 2.?Gastro-esophageal reflux disease with esophagitis? Start [...] bland diet; mylanta/maalox prn?? * Procedure Codes: 8 5025 CBC WITH AUTO DIFF, 51868 VENIPUNCT, ROUTINE* * Follow Up: a fter tests * Images: Billing Information: * Visit Code: 68220 Office Visit, Est Pt., Level 4. * Procedure Codes: 27289 CBC WITH AUTO DIFF. 02750 VENIPUNCT, ROUTINE*. * Electronic signature of Daniella Noble APRN on 12/20/2024 at 10:03 AM EDT Sign off status: Pending * Provider: ESE Yin Date: 0 12/12/2024 Generated for Tommy ng/Osmani/eTransmitting on: 0 12/20/2024 10:03 AM EDT History [...]
--- OUTSIDE RECORDS SUMMARY | 2024-12-20 10:03 | XMS_ITS | Patient Health Record ---
Author Organization [facility] Address [address] [place] [id number] Care Team Providers Care Colorer Name Role Phone Keira Pennington Primary Care Provider [phone] Trev Mata Unavailable [phone] Sri Noble Unavailable [phone] Mine Plummer Unavailable [phone] Allergies Allergen (clinical drug ingredient) Drug/Non Drug Allergy documented on EMR Reaction Allergy Type Onset Date Status celecoxib CeleBREX rash Drug Allergy Active duloxetine Cymbalta Unknown Drug Allergy Active Ziac Unknown Drug Allergy Active codeine Codeine Unknown Drug Allergy Active Results Component Value Reference Range Notes TEN-Upper Respiratory PCR Reviewed date:05/26/2024 10:35:05 AM Interpretation:Abnormal Performing Lab: Notes/Report: Abnormal P-TSH reflex to FT4 Reviewed date:12/05/2024 10:27:41 AM Interpretation:Normal Performing Lab: Notes/Report: Test performed by [employer], [address] , [address], [place] [address] Milton Self MD, Selector Packer CLIA: [id number] TSH reflex to FT4 0.96 0.43-5.25 mU/L CBC Venipuncture (in house) Reviewed date:12/12/2024 08:57:42 [...] - 400 P-Comprehensive Metabolic Pa rell (CMP) (Not yet reviewed by provider) Interpretation: Performing Lab: Notes/Report: Test performed by [employer] [facility] , [address], [place] [address] Milton Self MD, Selector Packer CLIA: [id number] Sodium 140 135-145 mmol/L Potassium 4.8 3.5-5.3 [...] <0.2-1.2 mg/dL A/G Ratio 2.4 1.1-2.5 CBC Fingerstick (in house) Reviewed date:06/09/2024 10:02:02 [...] - 38 plat 405 100 - 400 CBC Fingerstick (in house) Reviewed date:05/24/2024 01:14:17 [...] - 38 plat 329 100 - 400 MRI : Brain with and without contrast Reviewed date:09/14/2024 08:37:53 AM Interpretation:normal for age Performing Lab: Notes/Report: normal for age H-BUN/CREAT Reviewed date:09/12/2024 08:29:10 AM Interpretation: Performing Lab: Notes/Report: BUN 13 7-17 mg/dl CREATT 0.80 0.52-1.04 mg/dl GFRAA 88 >60 ML/MIN EGFR 72 >60 ml/min P-Comprehensive Metabolic Pa rell (CMP) Reviewed date:06/12/2024 05:17:34 PM Interpretation:Normal Performing Lab: Notes/Report: Test performed by [employer] [address] [place] [address] , [address], [place] [address] Milton Self MD, Selector Packer CLIA: [id number] Sodium 141 135-145 mmol/L Potassium 4.3 3.5-5.3 [...] 0.5 <0.2-1.2 mg/dL A/G Ratio 1.7 1.1-2.5 Medications Medication SIG (Take, Route, Frequency, Duration) Notes Start Date End Date Status Aspirin 81 MG 1 tablet Orally Once a day; Duration: 30 day(s) Active Diclofenac Sodium 1 % as directed applie d topically 4 times a day 06/10/2021 Active Esomeprazole Magnesium 40 MG 1 capsule 1 /2 to 1 hour before morning meal Orally Once a day; Duration: 30 days 12/12/2024 Active Hydroxychloroquine Sulfate 100 MG as directed Orally twice a day Active Furosemide 20 MG 1 [...] twice a day; Duration: 90 days Active Esomeprazole Magnesium 40 MG 1 capsule 1 /2 to 1 hour before morning meal Orally Once a day; Duration: 30 day(s) 12/12/2024 Active Rinvoq 15 MG 1 tablet Orally Once a day Active Vitamin B12 1000 MCG 1 tablet Orally Onc e a day; Duration: 90 days 08/12/2023 Not-Taking Voquezna 20 MG 1 tablet Orally Once a day; Duration: 4 days 12/12/2024 Active predniSONE 20 MG 1 tablet with food or milk Orally Once a day Not-Taking Fluticasone Propionate 50 MCG/ACT 1 spray in each nostril Nasally daily Not-Taking Pilocarpine HCl 5 MG 1 tablet Orally Three times a day; Duration: 30 day(s) Active Albuterol Sulfate HFA 108 (90 Base) MCG/ACT 1 puff as needed Inhalation every 4 hrs, prn 05/26/2024 Not-Taking Immunizations Vaccine Route Administration Date Status Comme nts COVID 19 Ann Unknown 07/03/2020 Administered Fluzone Quad (6months&older) IM Intramuscular 12/11/2019 Administered Fluzone Quad (6months&older) IM Intramuscular 06/10/2021 Administered Fluzone Quad (6months&older) IM Intramuscular 12/03/2021 Administered Fluzone Quad-Medicare (6months&older) Unknown 04/08/2016 Refused PNEUMOVAX 23 VACCINE Unknown 11/11/2017 Refused PNEUMOVAX 23 VACCINE IM Intramuscular 12/11/2019 Administe red Shingrix Unknown 11/11/2017 Refused Tetanus Tdap-Adacel (over 7yrs) Unknown 11/11/2017 Refused Problems Problem Type SNOMED Code ICD Code Onset Dates Problem Status W/U Status Risk Notes Problem Gastro-esophageal reflux disease with esophagitis (835894000) Gastro-esophageal reflux disease with esophagitis (K21.0) Active confirmed Problem Hyperkalemia (51558363) Hyperkalemia (E87.5) Active confirmed Problem Sinusitis (85032846) Sinusitis (J32.9) Active confirmed Problem Vitamin D deficiency (26267964) Vitamin D deficiency (E55.9) Active confirmed Problem Vitamin B12 deficiency (167726972) Vitamin B12 deficiency (E53.8) Active confirmed Problem Essential hypertension (72089961) Essential hypertension (I10) Active confirmed Problem Osteopenia (862783301) Osteopenia (M85.80) Active confirmed Problem Urticaria (797161349) Urticaria (L50.9) Active confirmed Problem Restless legs syndrome (97410617) Restless leg syndrome (G25.81) Active confirmed Problem Muscle weakness (15773740) Muscle weakness (M62.81) Active confirmed Problem Actinic keratosis (803029) Actinic keratosis (L57.0) Active confirmed Problem Fibromyalgia (995485626) Fibromyalgia (M79.7) Active confirmed Problem Morbid obesity (disorder) (759646387) Morbid (severe) obesity due to excess calories (E66.01) Active confirmed Problem Primary insomnia (7621996) Primary insomnia (F51.01) Active confirmed Problem Chronic pain syndrome (299655944) Chronic pain syndrome (G89.4) Active confirmed Problem Vaccination given (703117272) Encounter for immunization (Z23) Active confirmed Problem Seborrheic keratosis (23743364) Seborrheic keratosis (L82.1) Active confirmed Problem Acute maxillary sinusitis (69228957) Acute maxillary sinusitis, recurrence not specified (J01.00) Active confirmed Problem Reactive depression (situational) (54839365) Situational depression (F43.21) Active confirmed Problem Chronic fatigue syndrome (90056730) Chronic fatigue (R53.82) Active confirmed Problem Obese class II (139993822057155) BMI 36.0-36.9,adult (Z68.36) Active confirmed Problem Inflammation of bursa of olecranon (042596489) Olecranon bursitis of left elbow (M70.22) Active confirmed Problem Paroxysmal supraventricular tachycardia (28228504) Paroxysmal supraventricular tachycardia (I47.1) Active confirmed Problem History of musculoskeletal disease (882640531) H/O Sjogren's disease (Z87.39) Active confirmed Problem Menopausal symptom (30582013) Menopause syndrome (N95.1) Active confirmed Problem Dyslipidemia (425520639) Dyslipidemia (E78.5) Active confirmed Problem Allergic rhinitis (62940689) Seasonal allergic rhinitis due to other allergic trigger (J30.89) Active confirmed Problem Fibrocystic breast changes (17607114) Fibrocystic breast disease (FCBD), unspecified laterality (N60.19) Active confirmed Problem Pain due to varicose veins of lower extremity (616011292) Varicose veins of both lower extremities with pain (I83.813) Active confirmed Problem Sialoadenitis (08929564) Submandibular gland inflammation (K11.20) Active confirmed Problem Acute insomnia (422430121) Acute insomnia (G47.00) Active confirmed Problem Burning sensation of mouth (4394169354) Burning sensation of mouth (R20.8) Active confirmed Vital Signs Heart Rate 76 /min 12/12/2024 Blood pressure diastolic 94 mm Hg 12/12/2024 Height 64.50 in 12/12/2024 Blood pressure systolic 140 mm Hg 12/12/2024 Weight 202.8 lbs 12/12/2024 BMI 34.27 kg/m2 12/12/2024 Encounters Encounter Location Date Provider [facility] [address] [id number] 01/20/2024 Mine Crowdy Bronchitis J40 [facility] [address] [id number] 05/24/2024 Mine Crowdy Acute URI J06.9 and [facility]chitis J40 [facility] [address], [place] [id number] 06/08/2024 J Sharath Pennington Bronchitis J40 ; Essential (primary) hypertension I10 ; Chronic pain syndrome G89.4 and Seborrheic keratosis L82.1 [facility] [address], [place] [id number] 08/31/2024 R David Mata 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 ; Chronic fatigue R53.82 and BMI 36.0-36.9,adult Z68.36 [facility] [address] [place], [place] [id number] 11/30/2024 Keira Pennington Essential hypertensi on I10 and GCA (giant cell arteritis) M31.6 [facility] [address] [place], [place] [id number] 12/12/2024 Sri Noble Abdominal pain R10.9 ; Essential (primary) hypertension I10 ; Gastro-esophageal reflux disease with esophagitis K21.0 and Epigastric abdominal pain R10.13 [facility] [address] [place], [place] [id number] 01/25/2024 Mine Crowdy [facility] [address] [place], [place] [id number] 05/16/2024 Keira Pennington Fibromyalgia M79.7 [facility] [address] [place], [place] [id number] 05/26/2024 Minerainer Plummer [facility] [address] [place], [place] [id number] 08/02/2024 Keira Pennington [facility] [address] [place], [place] [id number] 09/14/2024 Keira Pennington [facility] [address] [place], [place] [id number] 09/28/2024 Keira Pennington [facility] [address] [place], [place] [id number] 11/20/2024 Keira Pennington [facility] [address] [place], [place] [id number] 11/23/2024 Keira Pennington [facility] [address] [place], [place] [id number] 11/24/2024 Keira Pennington Fibromyalgia M79.7 [facility] [address] [place], [place] [id number] 12/05/2024 Keira Pennington Assessments Encounter Date Diagnosis (ICD Code) Assessment Notes Treatment Notes Treatment Clinical Notes Section Notes 01/20/2024 Bronchitis (ICD-10 - J40) 05/16/2024 Fibromyalgia (ICD-10 - M79.7) 05/24/2024 Bronchitis (ICD-10 - J40) She has an albuterol inhaler at home she will start using. 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.9) 11/24/2024 Fibromyalgia (ICD-10 - M79.7) 11/30/2024 Essential hypertension (ICD-10 - I10) 11/30/2024 GCA (giant cell arteritis) (ICD-10 - M31.6) 12/12/2024 Essential (primary) hypertension (ICD-10 - I10) 12/12/2024 Abdominal pain (ICD-10 - R10.9) 12/12/2024 Gastro-esophageal reflux disease with esophagitis (ICD-10 - K21.0) stressed bland food/drink; small amounts at a time; ; GI referral; needs EGD; will go and schedule CT of abdomen 08/31/2024 BMI 36.0-36.9,adult (ICD-10 - Z68.36) 06/08/2024 Chronic pain syndrome (ICD-10 - G89.4) 06/08/2024 Seborrheic keratosis (ICD-10 - L82.1) 12/12/2024 Epigastric abdominal pain (ICD-10 - R10.13) bland diet; mylanta/maalox prn Plan Of Treatment Pending Test Test Name Order Date CT Scan : Abd with contrast 12/12/2024 P-Comprehensive Metabolic Panel (CMP) Next Appt Details Provider Name:Keira Albarran er, 12/28/2024 04:15:00 PM, [address], [address], [place], [id number], Insurance Providers Payer Name Payer Address Payer Phone Subscriber Number Group Number Insured Name Patient Relationship to Insured Coverage Start Date Coverage End Date [employer] (MEDICAR E) [address] [address] [place] [phone] [id number] STAN FAN Self - patient is the insured Medications Administered Medication Instructions Date of Administration Dosage Notes B-12 01/06/2007 1 mL B-12 01/13/2007 1 mL B-12 01/20/2007 1 mL B-12 01/27/2007 B-12 01/31/2007 1 mL B-12 10/02/2009 1 mL B-12 10/14/2009 1 mL B-12 12/24/2010 1 mL B-12 01/28/2011 1 mL B-12 02/27/2011 B-12 05/11/2011 1 mg B-12 12/29/2011 1 mL B-12 12/21/2013 1 mL B-12 03/14/2014 1 mL B-12 12/30/2016 1 mL B-12 01/27/2017 1 mL B-12 02/24/2017 1 mL B-12 09/16/2018 1 mL B-12 01/06/2019 1 mL B-12 05/19/2019 1 mL B-12 08/18/2019 1 mL B-12 09/08/2019 1 mL B-12 10/09/2019 1 mL B-12 11/22/2019 1 mL B-12 12/11/2019 1 mL B-12 01/10/2020 1 mL B-12 02/07/2020 1 mL B-12 03/05/2020 1 mL B-12 08/27/2020 1 mL B-12 12/03/2021 1 mL B-12 02/04/2022 1 mL B-12 05/27/2022 1 mL B-12 09/21/2022 1 mL B-12 08/12/2023 1 mL Vistaril 50 mg 09/23/2009 2 mL Medical (General) History Medical History History ICD Code hypertension Esophageal reflux with HH and possible e sophageal stricture fibromyalgia irritable bowel migraine headaches depression/anxiety neck fracture at age of 16 fractures of right wrist and right foot 06/06 arthritis profile negative Osteopenia, DEXA's 2010, 201212/15/10 Holter Sjogren's syndrome Reclast-last dose 03/16/2017 COVID 19 Vaccine, J&J 06/2020 pneumonia Surgical History Surgery Date(Month/Year) cholecystectomy appendectomy tonsillectomy hysterectomy vaginal, total in 1998 by Storm Jimenez adenoidectomy bravochip attached to esophagus Ulises fundoplication, Dr. Gonzalez jan hernia 02-15-[address] Niño 06/17/15 Heart Cath 02/2021 Hospitalization History Reason Date(Month/Year) pneumonia 02/2021 H-Dehydration to 09/25/09 severe pain in stomach and back (ER visi t) 10/2006
[2024-12-20 10:19] LABS: Blood Urea Nitrogen 7 mg/dl (7-17); Creatinine,Serum 0.90 mg/dl (0.52-1.04); Estimated Glomerular Filt Rate 63 ml/min (>60); GFR (African American) 77 ML/MIN (>60)
== END 2024-12-20 23:59 | disposition home or self-care (01) ==
LOC: LAB 09:55
PROVIDERS: PCP Nurse Practitioner Family; Visit Provider Nurse Practitioner Family
DX: G50.0 Trigeminal neuralgia (principal); R20.0 Anesthesia of skin; R20.2 Paresthesia of skin
CPT/HCPCS: 36415; 82565; 84520

== ENCOUNTER 2024-12-22 09:24 | Outpatient (CLI) | payer MEDICARE, SELFPAY ==
--- OUTSIDE RECORDS SUMMARY | 2024-05-24 06:45 | XMS_ITS ---
[facility] Address [address] [place] [id number] Care Team Providers Care Vp Public Relations Name Role Phone Keira Pennington Primary Care Provider Mine Plummer Unavailable [phone] Allergies Allergen (clinical drug ingredient) Drug/Non Drug [...] each nostril Nasally daily Active Vital Signs Blood pressure systolic 126 mm Hg 05/24/19 25 Blood pressure diastolic 82 mm Hg 025 Heart Rate 85 /min 05/24/2024 Height 64.50 in 05/24/2024 Weight 218.0 lbs 05/24/2024 BMI 36.84 kg/m2 05/24/2024 Encounters Encounter Location Date Provider Diagnosis [facility] [address] [facility] [address] [place] [address], [place] [id number] 05/24/2024 Mine Plummer Acute URI J06.9 and [...] test results, Reason: Provider Name:Keira Albarran er, 12/28/2024 04:15:00 PM, [address], [address], [place], [place], [id number], Progress Notes * STAN FANDOB:1960 (64 yo F)Acc No.[id number]:05/24/2024 Progress Notes Patient: STAN COWAN Provider: REFUGIO Damico :1960 A ge:63 Y S ex:Female Date:05/24/2024 Address:[address], [place], [id number] Pcp:Keira Pennington Subjective: * Chief Complaints: * [...] Orally every 12 hrs , Discontinued Nystatin 255690 UNIT/ML Suspension 5 mL swish and spit [...] * Procedure Codes: 9 4760 [place], [address] CAPILLARY BLOOD DRAW, 84824 CBC WITH AUTO DIFF, 3074F SYST BP LT 130 MM HG, 3079F DIAST BP 80-89 MM HG * Follow Up: v ia phone to report test results * Images: Billing Information: * Visit Code: 01311 Office Visit, Est Pt., Level 3. * Procedure Codes: [address]18 [place]. [address] CAPILLARY BLOOD DRAW. 21896 CBC WITH AUTO DIFF. 3074F SYST BP LT 130 MM HG. 3079F DIAST BP 80-89 MM HG. * Electronic signature of REFUGIO Ortiz on 12/22/2024 at 09:34 AM EDT Sign off status: Pending * Provider: REFUGIO Damico Date: 0 05/24/2024 Generated for Tommy welsh/Fajanine/eTransmitting on: 0 12/22/2024 09:34 AM EDT History and Physical Notes * HPI (History [...]
--- OUTSIDE RECORDS SUMMARY | 2024-06-08 10:45 | XMS_ITS ---
Author Organization [facility] Address [address] [place] [phone] Care Team Providers Care Live Ammunition Inspector Name Role Phone Keira Pennington Primary Care Provider [phone] Allergies Allergen (clinical drug ingredient) Drug/Non Drug [...] Interpretation:Normal Performing Lab: Notes/Report: Test performed by [employer], [facility] [address] [place] [address] , [address], [place] [address] Milton Self MD, Wind Up Worker CLIA: [id number] Sodium 141 135-145 mmol/L Potassium 4.3 3.5-5.3 [...] Encounter Location Date Provider Diagnosis Jessica 1210 [facility] 36 [facility] [address] [place] [phone] 06/08/2024 Keira Pennington Bronchitis J40 ; Essential [...] Name:Keira Albarran er, 12/28/2024 04:15:00 PM, 1210 [facility] 36 [facility], [address], [place], [id number], Procedure Notes * Category Sub-Category Detail Notes Cryotherapy Benign Lesion Method: Wallac h LL 100 used to freeze and refreeze the lesions Post-Op Instruction: clean wound with vi odell water twice a day , Apply Vaseline twice a day to wound Progress Notes * STAN FANDOB:1960 (64 yo F)Acc No.[id number]:06/08/2024 Progress Notes Patient: Soy STAN ROSE Provider: Keria Pennington M.D. :1960 A ge:63 Y S ex:Female Date:06/08/2024 Address:[facility] [address] [place] Subjective: * Chief Complaints: * 1 . [...] 7000 DESTRUCTION BENIGN LESION, CRYOSURGERY,ELECTROSURGERY FIRST LESION, 58446 DESTRUCTION BENIGN LESION,CRYO, ELECTRO, 2-14 LESIONS, G2211 Complex e/[place], [address] [place], [address] CAPILLARY BLOOD DRAW, 61010 CBC WITH AUTO DIFF, 3074F SYST BP LT 130 MM HG, 3079F DIAST BP 80-89 MM HG * Follow Up: 2 Months * Images: Billing Information: * Visit Code: 97084 Office Visit, Est Pt., Level 4. Modifiers: 25 * Procedure Codes: 20503 DESTRUCTION BENIGN LESION, CRYOSURGERY,ELECTROSURGERY FIRST LESION. 12630 DESTRUCTION BENIGN LESION,CRYO, ELECTRO, 2-14 LESIONS. G2211 Complex e/[place]. [address] [place]. [address] CAPILLARY BLOOD DRAW. 03725 CBC WITH AUTO DIFF. 3074F SYST BP LT 130 MM HG. 3079F DIAST BP 80-89 MM HG. * Electronic signature of Keira Pennington MD on 12/22/2024 at 09:34 AM EDT Sign off status: Pending * Provider: Keira Pennington M.D. Date: 0 06/08/2024 Generated for Tommy welsh/Osmani/eTransmitting on: 0 12/22/2024 09:34 AM EDT History [...]
--- OUTSIDE RECORDS SUMMARY | 2024-08-31 05:30 | XMS_ITS ---
Author Organization [facility] Address [address] [place] [id number] Care Team Providers Care Machine Stripper Name Role Phone Keira Pennington Primary Care Provider Trev Mata Unavailable [phone] Allergies Allergen (clinical drug ingredient) Drug/Non Drug [...] 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) [facility] Referring Provider First Name Trev Hernandez Referring Provider Last Name Adolfo Referring Provider Speciality Family [facility] Referred Provider Fallon Ford Referred Provider Specialty Neurology General Notes Brsieida Ibarra 2024 08:54:07 AM > faxed to [facility] Neurology Referral Priority Routine REASON FOR VISIT [...] Status Risk Notes Problem Obese class II ([id number] 105) BMI 36.0-36.9,a dult (Z68.36) Active confirmed Vital Signs Blood pressure systolic 120 mm Hg 09/01/19 25 Blood pressure diastolic 76 mm Hg 025 Heart Rate 70 /min 08/31/2024 Height 64.50 in 08/31/2024 Weight 215 lbs 08/31/2024 BMI 36.33 kg/m2 08/31/2024 Encounters Encounter Location Date Provider Diagnosis Jessica 1210 [facility] [address] [id number] 08/31/2024 R David Mata Trigeminal nerve disorder [...] [address], [address], [place], [place], [id number], Progress Notes * STAN FANDOB:1960 (64 yo F)Acc No.[id number]:08/31/2024 Progress Notes Patient: STAN COWAN Provider: Trev Mata M.D. :1960 A ge:64 Y S ex:Female Date:08/31/2024 Address:[facility] [address], [place], [id number] Pcp:Keira Pennington Subjective: * Chief Complaints: * [...] the left mandible primarily that radiates to alevism and neck. It sometimes feels like her [...] hronic fatigue - R53.82 3 . B [place] 36.0-36.9,adult - Z68.36 Plan: * Treatment: ? Referral To:Fallon Ford??Neurology ?Reason:facial pain and numbness * Procedure Codes: G 2211 Complex e/m visit add on, G8752 MOST RECENT SYSTOLIC BP < 140MM HG, G8754 MOST RECENT DIASTOLIC BP < 90MM HG, 1036F TOBACCO NON-USER * Follow Up: v ia phone to report test results * Images: Billing Information: * Visit Code: 58691 Office Visit, Est Pt., Level 4. * Procedure Codes: G2211 Complex e/m visit add on. G8752 MOST RECENT SYSTOLIC BP < 140MM HG. G8754 MOST RECENT DIASTOLIC BP < 90MM HG. 1036F TOBACCO NON-USER. * Electronic signature of Trev Mata MD on 12/22/2024 at 09:34 AM EDT Sign off status: Pending * Provider: Trev Mata M.D. Date: 0 08/31/2024 Generated for Yevgeniyi anitha/Osmani/eTadriánitting on: 0 12/22/2024 09:34 AM EDT History [...] the left mandible primarily that radiates to alevism and neck. It sometimes feels like her [...]
--- OUTSIDE RECORDS SUMMARY | 2024-11-30 11:30 | XMS_ITS ---
Author Organization [facility] Address [address] [facility] [address] [place] [id number] Care Team Providers Care Veneer Gluer Name Role Phone Keira Pennington Primary Care Provider [phone] Allergies Allergen (clinical drug ingredient) Drug/Non Drug Allergy documented on EMR Reaction Allergy Type Onset Date Status celecoxib CeleBREX rash Drug Allergy Active duloxetine Cymbalta Unknown Drug Allergy Active Ziac Unknown Drug Allergy Active codeine Codeine Unknown Drug Allergy Active Results Component Value Reference Range Notes P-TSH reflex to FT4 Reviewed date:12/05/2024 10:27:41 AM Interpretation:Normal Performing Lab: Notes/Report: Test performed by [facility] [address] , [address], [place] [address] Milton Self MD, Jeeper Operator CLIA: [id number] TSH reflex to FT4 0.96 0.43-5.25 mU/L [...] W/U Status Risk Notes Problem Essential hypertension (97083759) Essential hypertension (I10) Active confirmed Vital Signs Blood pressure systolic 162 mm Hg 12/01/19 25 Blood pressure diastolic 100 mm Hg 025 Heart Rate 61 /min 11/30/2024 Height 64.50 in 11/30/2024 Weight 210.2 lbs 11/30/2024 BMI 35.52 kg/m2 11/30/2024 Encounters Encounter Location Date Provider Diagnosis [facility] 1210 [facility] 36 [facility] [address] [place] [phone] 11/30/2024 Keira Pennington Essential hypertensi on I10 [...] Albarran er, 12/28/2024 04:15:00 PM, [address] [facility] 36 [facility], [address], [place], [phone], Progress Notes * MARISELA FAN:1960 (64 yo F)Acc No.[id number]:11/30/2024 Progress Notes Patient: STAN COWAN Provider: Keira Pennington M.D. :1960 A ge:64 Y S ex:Female Date:11/30/2024 [facility], [place], [id number] Subjective: * Chief Complaints: * 1 . [...] * Images: Billing Information: * Visit Code: 99064 Office Visit, Est Pt., Level 4. * Procedure Codes: G2211 Complex e/m visit add on. 1036F TOBACCO NON-USER. * Electronic signature of Keira Pennington MD on 12/22/2024 at 09:34 AM EDT Sign off status: Pending * Provider: Keira Pennington M.D. Date: 0 11/30/2024 Generated for Tommy welsh/Osmani/eTransmitting on: 0 12/22/2024 [...]
--- OUTSIDE RECORDS SUMMARY | 2024-12-12 06:15 | XMS_ITS ---
Author Organization [facility] Address [address] [facility] [address] [id number] Care Team Providers Care Associate Professor Name Role Phone Keira Pennington Primary Care Provider Sri Noble Unavailable [phone] Allergies Allergen (clinical drug ingredient) Drug/Non Drug Allergy documented on EMR Reaction Allergy Type Onset Date Status celecoxib CeleBREX rash Drug Allergy Active duloxetine Cymbalta Unknown Drug Allergy Active Ziac Unknown Drug Allergy Active codeine Codeine Unknown Drug Allergy Active Results Component Value Reference Range Notes P-Comprehensive Metabolic Pa rell (CMP) (Not yet reviewed by provider) Interpretation: Performing Lab: Notes/Report: Test performed by [facility] [employer] [address] [place] [address] , [address], [place] [address] Milton Self MD, Watch Technician CLIA: [id number] Sodium 140 135-145 mmol/L Potassium 4.8 3.5-5.3 [...] 0.7 <0.2-1.2 mg/dL A/G Ratio 2.4 1.1-2.5 CBC Venipuncture (in house) Reviewed date:12/12/2024 08:57:42 [...] - 38 platlet 404 100 - 400 Reason For Referral Diagnosis 1 Gastro-esophageal re flux disease with esophagitis (K21.0) Referral Organization Jessica Referring Provider First Name Sri Referring Provider Last Name Real Referring Provider [facility] Referred Organization [facility] OP Referred Provider WILDER BRYSON Referred Address [address] [facility] [address] [id number], Referred Provider Specialty Gastroentero logy General Notes Briseida Ibarra 2024 12:53:49 PM > faxed to [facility] GI Referral Priority Routine REASON FOR [...] Duration: 30 days 12/12/2024 Active Vital Signs Blood pressure systolic 140 mm Hg 12/13/19 25 Blood pressure diastolic 94 mm Hg 025 Heart Rate 76 /min 12/12/2024 Height 64.50 in 12/12/2024 Weight 202.8 lbs 12/12/2024 BMI 34.27 kg/m2 12/12/2024 Encounters Encounter Location Date Provider Diagnosis [facility] [address], [place] [id number] 12/12/2024 Sri Noble Abdominal pain R10.9 ; [...] abdominal pain bland diet; my lanta/maalox prn Pending Test Test Name Order Date CT Scan : Abd with contrast 12/12/2024 P-Comprehensive Metabolic Panel (CMP) Referrals Referral Date Details 12/12/2024 12/12/2024, WILDER MANRIQUEZ, [address], [place], [place], [id number], Next Appt Details Follow Up: after tests, Reas on: Provider Name:Keira Albarran er, 12/28/2024 04:15:00 PM, [address] [facility] 36 [facility], [address], [place], [place], [phone], Progress Notes * STAN FANDOB:1960 (64 yo F)Acc No.[id number]:12/12/2024 Progress Notes Patient: STAN COWAN Provider: ESE Yin :1960 A ge:64 Y S ex:Female Date:12/12/2024 Address:[facility] [address], [place], [id number] Pcp:Keira Pennington Subjective: * Chief Complaints: * [...] 08:56:53 AM EDT >left message for return call ?LAB: CBC Venipuncture (in house) (Collection Date [...] > ?Imaging: CT Scan : Abd with contrast* Briseida Ibarra 12/12/2024 11:1 7:56 AM EDT > auth#[id number]; valid 12/12/2024-02/10/2025; CPT code 97081; faxed to [facility] Scheduling 2.?Gastro-esophageal reflux disease with esophagitis? Start Esomeprazole [...] G 2211 Complex e/[place], [address] CBC WITH AUTO DIFF, 22584 VENIPUNCT, ROUTINE*, 1036F TOBACCO NON-USER * Follow Up: a fter tests * Images: Billing Information: * Visit Code: 69130 Office Visit, Est Pt., Level 4. * Procedure Codes: G2211 Complex e/[place]. [address] CBC WITH AUTO DIFF. 29830 VENIPUNCT, ROUTINE*. 1036F TOBACCO NON-USER. * Electronic signature of Daniella Noble APRN on 12/22/2024 at 09:33 AM EDT Sign off status: Pending * Provider: ESE Yin Date: 0 12/12/2024 Generated for Tommy welsh/Faxing/eTransmitting on: 0 12/22/2024 09:33 AM EDT History and Physical Notes * [...]
--- NOTE | 2024-12-22 09:29 | CT_ITS ---
FINAL REPORT TECHNIQUE: Axial CT images of the abdomen were obtained with IV contrast only. Coronal reformatted images were also obtained. This study was performed with techniques to keep radiation doses as low as reasonably achievable (ALARA). Individualized dose reduction techniques using automated exposure control or adjustment of mA and/or kV according to the patient''s size were employed. CLINICAL HISTORY: ABD. PAIN COMPARISON: none FINDINGS: Scarring is noted at the lung bases. There are benign-appearing cysts in the liver measuring up to 2.1 cm. The gallbladder is surgically absent. There is a moderate hiatal hernia. The spleen, pancreas, adrenal glands, and kidneys are unremarkable. There is no evidence of adenopathy. No abnormal fluid collection is seen. No localized inflammatory processes identified. IMPRESSION: Moderate hiatal hernia. Benign-appearing hepatic cysts. Reviewed, Interpreted and Dictated by Damián Vázquez MD Transcribed by Drea Vernon Authenticated and [facility]
--- OUTSIDE RECORDS SUMMARY | 2024-12-22 09:34 | XMS_ITS | Patient Health Record ---
Author Organization [facility] Address [address] [place] [id number] Care Team Providers Care Auto Service Dispatcher Name Role Phone Keira Pennington Primary Care Provider [phone] Trev Mata Unavailable [phone] Sri Noble Unavailable [phone] Mine Plummer Unavailable [phone] Allergies Allergen (clinical drug ingredient) Drug/Non Drug Allergy documented on EMR Reaction Allergy Type Onset Date Status celecoxib CeleBREX rash Drug Allergy Active duloxetine Cymbalta Unknown Drug Allergy Active Ziac Unknown Drug Allergy Active codeine Codeine Unknown Drug Allergy Active Results Component Value Reference Range Notes P-TSH reflex to FT4 Reviewed date:12/05/2024 10:27:41 AM Interpretation:Normal Performing Lab: Notes/Report: Test performed by [facility], [address] , [address], [place] [address] Milton Self MD, Bus Info Consultant CLIA: [id number] TSH reflex to FT4 0.96 0.43-5.25 mU/L [...] Interpretation: Performing Lab: Notes/Report: Test performed by [facility], [employer] [address] [place] [address] , [address], [place] [address] Milton Self MD, Bus Info Consultant CLIA: [id number] Sodium 140 135-145 mmol/L Potassium 4.8 3.5-5.3 [...] 0.7 <0.2-1.2 mg/dL A/G Ratio 2.4 1.1-2.5 H-BUN/CREAT Reviewed date:12/20/2024 01:18:57 PM Interpretation: Performing Lab: Notes/Report: BUN 7 7-17 mg/dl CREATT 0.90 0.52-1.04 mg/dl GFRAA 77 >60 ML/MIN EGFR 63 >60 ml/min TEN-Upper Respiratory PCR Reviewed date:05/26/2024 10:35:05 AM Interpretation:Abnormal Performing Lab: Notes/Report: Abnormal CBC Fingerstick (in house) Reviewed date:05/24/2024 01:14:17 [...] - 38 plat 329 100 - 400 H-BUN/CREAT Reviewed date:09/12/2024 08:29:10 AM Interpretation: Performing Lab: Notes/Report: BUN 13 7-17 mg/dl CREATT 0.80 0.52-1.04 mg/dl GFRAA 88 >60 ML/MIN EGFR 72 >60 ml/min CBC Fingerstick (in house) Reviewed date:06/09/2024 10:02:02 [...] Interpretation:Normal Performing Lab: Notes/Report: Test performed by [facility], [address] , [address], [place] [address] Milton Self MD, Bus Info Consultant CLIA: [id number] Sodium 141 135-145 mmol/L Potassium 4.3 3.5-5.3 [...] 0.5 <0.2-1.2 mg/dL A/G Ratio 1.7 1.1-2.5 MRI : Brain with and without contrast Reviewed date:09/14/2024 08:37:53 AM Interpretation:normal for age Performing Lab: Notes/Report: normal for age Medications Medication SIG (Take, Route, Frequency, Duration) [...] Vaccine Route Administration Date Status Comme nts Tetanus Tdap-Adacel (over 7yrs) Unknown 11/11/2017 Refused Shingrix Unknown 11/11/2017 Refused PNEUMOVAX 23 VACCINE Unknown 11/11/2017 Refused PNEUMOVAX 23 VACCINE IM Intramuscular 12/11/2019 Administe red Fluzone Quad-Medicare (6months&older) Unknown 04/08/2016 Refused Fluzone Quad (6months&older) IM Intramuscular 12/11/2019 Administered Fluzone Quad (6months&older) IM Intramuscular 06/10/2021 Administered Fluzone Quad (6months&older) IM Intramuscular 12/03/2021 Administered COVID 19 Ann Unknown 07/03/2020 Administered Problems Problem Type SNOMED Code ICD Code Onset Dates Problem Status W/U Status Risk Notes Problem Gastro-esophageal reflux disease with esophagitis (926207971) Gastro-esophageal reflux disease with esophagitis (K21.0) Active confirmed Problem Hyperkalemia (37591961) Hyperkalemia (E87.5) Active confirmed Problem Sinusitis (45803495) Sinusitis (J32.9) Active confirmed Problem Vitamin D deficiency (73351639) Vitamin D deficiency (E55.9) Active confirmed Problem Vitamin B12 deficiency (857644249) Vitamin B12 deficiency (E53.8) Active confirmed Problem Essential hypertension (34044148) Essential hypertension (I10) Active confirmed Problem Osteopenia (698445642) Osteopenia (M85.80) Active confirmed Problem Urticaria (209462732) Urticaria (L50.9) Active confirmed Problem Restless legs syndrome (17562627) Restless leg syndrome (G25.81) Active confirmed Problem Muscle weakness (29191987) Muscle weakness (M62.81) Active confirmed Problem Actinic keratosis (956730) Actinic keratosis (L57.0) Active confirmed Problem Fibromyalgia (583613039) Fibromyalgia (M79.7) Active confirmed Problem Morbid obesity (disorder) (838430557) Morbid (severe) obesity due to excess calories (E66.01) Active confirmed Problem Primary insomnia (8929944) Primary insomnia (F51.01) Active confirmed Problem Chronic pain syndrome (920875078) Chronic pain syndrome (G89.4) Active confirmed Problem Vaccination given (944556985) Encounter for immunization (Z23) Active confirmed Problem Seborrheic keratosis (46359436) Seborrheic keratosis (L82.1) Active confirmed Problem Acute maxillary sinusitis (96505448) Acute maxillary sinusitis, recurrence not specified (J01.00) Active confirmed Problem Reactive depression (situational) (46067061) Situational depression (F43.21) Active confirmed Problem Chronic fatigue syndrome (73339848) Chronic fatigue (R53.82) Active confirmed Problem Obese class II (425975285133849) BMI 36.0-36.9,adult (Z68.36) Active confirmed Problem Inflammation of bursa of olecranon (983959821) Olecranon bursitis of left elbow (M70.22) Active confirmed Problem Paroxysmal supraventricular tachycardia (49612446) Paroxysmal supraventricular tachycardia (I47.1) Active confirmed Problem History of musculoskeletal disease (315480547) H/O Sjogren's disease (Z87.39) Active confirmed Problem Menopausal symptom (78121089) Menopause syndrome (N95.1) Active confirmed Problem Dyslipidemia (949090655) Dyslipidemia (E78.5) Active confirmed Problem Allergic rhinitis (52557247) Seasonal allergic rhinitis due to other allergic trigger (J30.89) Active confirmed Problem Fibrocystic breast changes (27896165) Fibrocystic breast disease (FCBD), unspecified laterality (N60.19) Active confirmed Problem Pain due to varicose veins of lower extremity (099367058) Varicose veins of both lower extremities with pain (I83.813) Active confirmed Problem Sialoadenitis (43927026) Submandibular gland inflammation (K11.20) Active confirmed Problem Acute insomnia (233092369) Acute insomnia (G47.00) Active confirmed Problem Burning sensation of mouth (6350862743) Burning sensation of mouth (R20.8) Active confirmed Vital Signs Heart Rate 76 /min 12/12/2024 Blood pressure diastolic 94 mm Hg 12/12/2024 Height 64.50 in 12/12/2024 Blood pressure systolic 140 mm Hg 12/12/2024 Weight 202.8 lbs 12/12/2024 BMI 34.27 kg/m2 12/12/2024 Encounters Encounter Location Date Provider Diagnosis [facility] [address] [facility] [address] [facility] [address] [place], [place] [id number] 01/20/2024 Mine Crowdy Bronchitis J40 [facility] [address] [facility] [address] [facility] [address] [place], [place] [id number] 05/24/2024 Mine Crowdy Acute URI J06.9 and Bronchitis J40 [facility] [address] [facility] [address] [facility] [address] [place], [place] [id number] 06/08/2024 J Sharath Pennington Bronchitis J40 ; Essential (primary) hypertension I10 ; Chronic pain syndrome G89.4 and Seborrheic keratosis L82.1 [facility] [address] [place], [place] [id number] 08/31/2024 R David Mata 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 ; Chronic fatigue R53.82 and BMI 36.0-36.9,adult Z68.36 [facility] [address] [place], [place] [id number] 11/30/2024 Keira Pennington Essential hypertensi on I10 and GCA (giant cell arteritis) M31.6 [facility] [address] [place], [place] [id number] 12/12/2024 Sri Noble Abdominal pain R10.9 ; Essential (primary) hypertension I10 ; Gastro-esophageal reflux disease with esophagitis K21.0 and Epigastric abdominal pain R10.13 [facility] [address] [place] [id number] 01/25/2024 Minerainer Plummer [facility] [address] [place] [id number] 05/16/2024 J Sharath Pennington Fibromyalgia M79.7 [facility] [address] [place] [id number] 05/26/2024 Mine Kavitha [facility] [address] [place], [place] [id number] 08/02/2024 Keira Pennington [facility] [address] [place], [place] [id number] 09/14/2024 Keira Pennington [facility] [address] [place] [id number] 09/28/2024 Keira Pennington [facility] [address] [place] [id number] 11/20/2024 Keira Pennington [facility] [address] [place] [id number] 11/23/2024 Keira Pennington [facility] [address] [place], [place] [id number] 11/24/2024 Keira Pennington Fibromyalgia M79.7 [facility] [address] [facility] [address] [place] [id number] 12/05/2024 Keira Pennington Assessments Encounter Date Diagnosis (ICD Code) Assessment Notes Treatment Notes Treatment Clinical Notes Section Notes 01/20/2024 Bronchitis (ICD-10 - J40) 05/16/2024 Fibromyalgia (ICD-10 - M79.7) 06/08/2024 Essential (primary) hypertension (ICD-10 - I10) 06/08/2024 Bronchitis (ICD-10 - J40) 08/31/2024 Chronic fatigue (ICD-10 - R53.82) 08/31/2024 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 05/24/2024 Acute URI (ICD-10 - J06.9) 12/12/2024 Gastro-esophageal reflux disease with esophagitis (ICD-10 [...] [address], [address], [place], [place], [id number], Insurance Providers Payer Name Payer Address Payer Phone Subscriber Number Group Number Insured Name Patient Relationship to Insured Coverage Start Date Coverage End Date [employer] (MEDICAR E) [address] [address] [place] [address] [phone] [id number] STAN FAN Self - patient is the [...] 02/2021 Hospitalization History Reason Date(Month/Year) pneumonia 02/2021 [facility]-Dehydration to 09/25/09 severe pain in stomach and back (ER visi t) 10/2006
[2024-12-22] MEDS: SODIUM CHLORIDE 0.9% 10ML SYR (RAD ONLY) 10 ML IV (10:13)
[2024-12-22] MEDS: IOPAMIDOL-370 (76%);100ML BOTTLE 75 ML IV (10:13)
== END 2024-12-22 23:59 | disposition home or self-care (01) ==
LOC: RAD 09:25
PROVIDERS: PCP Family Medicine; Visit Provider Nurse Practitioner Family
DX: K44.9 Diaphragmatic hernia without obstruction or gangrene (principal); K76.89 Other specified diseases of liver; R10.9 Unspecified abdominal pain
CPT/HCPCS: 74160; Q9967

== ENCOUNTER 2024-12-27 12:24 | Outpatient (CLI) | payer MEDICARE, SELFPAY ==
--- OUTSIDE RECORDS SUMMARY | 2024-05-24 06:45 | XMS_ITS ---
[facility] Organization [facility] Address [address] [place] [phone] Care Team Providers Care Mill Hand Plate Mill Name Role Phone Keira Pennington Primary Care Provider [phone] Mine Plummer Unavailable [phone] Allergies Allergen (clinical drug ingredient) Drug/Non Drug [...] 05/24/2024 Encounters Encounter Location Date Provider Diagnosis [facility] [address] [facility] [address] [place] [address], [place] [id number] 05/24/2024 Mine Plummer Acute URI J06.9 and [...] [address], [address], [place], [place], [id number], Progress Notes * STAN FANDOB:1960 (64 yo F)Acc No.[id number]:05/24/2024 Progress Notes Patient: STAN COWAN Provider: REFUGIO Damico :1960 A ge:63 Y S ex:Female Date:05/24/2024 Address:[address], [place], [place] Pcp:Keira Pennington Subjective: * Chief Complaints: * [...] Orally every 12 hrs , Discontinued Nystatin 793391 UNIT/ML Suspension 5 mL swish and spit [...] * Procedure Codes: 9 4760 [place], [address] CAPILLARY BLOOD DRAW, 37047 CBC WITH AUTO DIFF, 3074F SYST BP LT 130 MM HG, 3079F DIAST BP 80-89 MM HG * Follow Up: v ia phone to report test results * Images: Billing Information: * Visit Code: 68847 Office Visit, Est Pt., Level 3. * Procedure Codes: [address] [place]. [address] CAPILLARY BLOOD DRAW. 39073 CBC WITH AUTO DIFF. 3074F SYST BP LT 130 MM HG. 3079F DIAST BP 80-89 MM HG. * Electronic signature of REFUGIO Ortiz on 12/27/2024 at 12:45 PM EDT Sign off status: Pending * Provider: REFUGIO Damico Date: 0 05/24/2024 Generated for Tommy welsh/Osmani/eTransmitting on: 1 12:45 PM EDT History and Physical Notes * HPI [...]
--- OUTSIDE RECORDS SUMMARY | 2024-06-08 10:45 | XMS_ITS ---
Author Organization [facility] Address [address] [place] [phone] Care Team Providers Care Choke Reamer Name Role Phone Keira Pennington Primary Care [...] Interpretation:Normal Performing Lab: Notes/Report: Test performed by [employer], [email or web address] [address] [place] [address] , [address], [place] [address] Milton Self MD, Woodworking Belt Sander CLIA: [id number] Sodium 141 135-145 mmol/L Potassium 4.3 3.5-5.3 [...] Encounter Location Date Provider Diagnosis Jessica 1210 [facility] 36 [facility] [address] [place] [phone] 06/08/2024 Keira Pennington Bronchitis J40 ; Essential [...] Name:Keira Albarran er, 12/28/2024 04:15:00 PM, 1210 [facility] 36 [facility], [address], [place], [phone], Procedure Notes * Category Sub-Category Detail Notes Cryotherapy Benign Lesion Method: Wallac h LL 100 used to freeze and refreeze the lesions Post-Op Instruction: clean wound with vi odell water twice a day , Apply Vaseline twice a day to wound Progress Notes * STAN FANDOB:1960 (64 yo F)Acc No.[id number]:06/08/2024 Progress Notes Patient: Soy STAN ROSE Provider: Keira Pennington M.D. :1960 A ge:63 Y S ex:Female Date:06/08/2024 Address:[facility] [address] [id number] Subjective: * Chief Complaints: * 1 . [...] 7000 DESTRUCTION BENIGN LESION, CRYOSURGERY,ELECTROSURGERY FIRST LESION, 46830 DESTRUCTION BENIGN LESION,CRYO, ELECTRO, 2-14 LESIONS, G2211 Complex e/[place], [address] [place], [address] CAPILLARY BLOOD DRAW, 37399 CBC WITH AUTO DIFF, 3074F SYST BP LT 130 MM HG, 3079F DIAST BP 80-89 MM HG * Follow Up: 2 Months * Images: Billing Information: * Visit Code: 27642 Office Visit, Est Pt., Level 4. Modifiers: 25 * Procedure Codes: 19658 DESTRUCTION BENIGN LESION, CRYOSURGERY,ELECTROSURGERY FIRST LESION. 20812 DESTRUCTION BENIGN LESION,CRYO, ELECTRO, 2-14 LESIONS. G2211 Complex e/[place]. [address] [place]. [address] CAPILLARY BLOOD DRAW. 55564 CBC WITH AUTO DIFF. 3074F SYST BP LT 130 MM HG. 3079F DIAST BP 80-89 MM HG. * Electronic signature of Keira Pennington MD on 12/27/2024 at 12:44 PM EDT Sign off status: Pending * Provider: Keira Pennington M.D. Date: 0 06/08/2024 Generated for Tommy welsh/Osmani/eTransmitting on: 1 12:44 PM EDT History and Physical Notes * [...]
--- OUTSIDE RECORDS SUMMARY | 2024-08-31 05:30 | XMS_ITS ---
Author Organization [facility] Address [address] [place] [phone] Care Team Providers Care Gunner'S Mate M Name Role Phone Keira Pennington Primary Care Provider Trev Mata Unavailable [phone] Allergies Allergen (clinical drug ingredient) Drug/Non Drug [...] 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) [facility] Referring Provider First Name Trev Hernandez Referring Provider Last Name Adolfo Referring Provider Speciality [facility] Referred Provider Fallon Ford Referred Provider Specialty Neurology General Notes Briseida Ibarra 2024 08:54:07 AM > faxed to [facility] Neurology Referral Priority Routine REASON FOR [...] Status Risk Notes Problem Obese class II ([id number] 105) BMI 36.0-36.9,a dult (Z68.36) Active confirmed Vital Signs Weight 215 lbs 08/31/2024 Blood pressure systolic 120 mm Hg 09/01/19 25 Blood pressure diastolic 76 mm Hg 025 Heart Rate 70 /min 08/31/2024 Height 64.50 in 08/31/2024 BMI 36.33 kg/m2 08/31/2024 Encounters Encounter Location Date Provider [facility] [address] [phone] 08/31/2024 R David Mata Trigeminal nerve disorder [...] [address], [address], [place], [place], [id number], Progress Notes * STAN FANDOB:1960 (64 yo F)Acc No.[id number]:08/31/2024 Progress Notes Patient: STAN COWAN Provider: Trev Mata M.D. :1960 A ge:64 Y S ex:Female Date:08/31/2024 Address:[facility] [address], [place], [id number] Pcp:Keira Pennington Subjective: * Chief Complaints: * [...] the left mandible primarily that radiates to faith and neck. It sometimes feels like her [...] hronic fatigue - R53.82 3 . B [place] 36.0-36.9,adult - Z68.36 Plan: * Treatment: ? Referral To:Fallon Ford??Neurology ?Reason:facial pain and numbness * Procedure Codes: G 2211 Complex e/m visit add on, G8752 MOST RECENT SYSTOLIC BP < 140MM HG, G8754 MOST RECENT DIASTOLIC BP < 90MM HG, 1036F TOBACCO NON-USER * Follow Up: v ia phone to report test results * Images: Billing Information: * Visit Code: 94866 Office Visit, Est Pt., Level 4. * Procedure Codes: G2211 Complex e/m visit add on. G8752 MOST RECENT SYSTOLIC BP < 140MM HG. G8754 MOST RECENT DIASTOLIC BP < 90MM HG. 1036F TOBACCO NON-USER. * Electronic signature of Trev Mata MD on 12/27/2024 at 12:45 PM EDT Sign off status: Pending * Provider: Trev Mata M.D. Date: 0 08/31/2024 Generated for Printi anitha/Osmani/eTransmitting on: 1 12:45 PM EDT History and [...] the left mandible primarily that radiates to faith and neck. It sometimes feels like her [...]
--- OUTSIDE RECORDS SUMMARY | 2024-11-30 11:30 | XMS_ITS ---
Author Organization [facility] Address [address] [facility] [address] [id number] Care Team Providers Care Medical Auditor Name Role Phone Keira Pennington Primary Care [...] Interpretation:Normal Performing Lab: Notes/Report: Test performed by [facility] [address] , [address], [place] [address] Milton Self MD, Terrazzo Polisher Helper CLIA: [id number] TSH reflex to FT4 0.96 0.43-5.25 mU/L [...] W/U Status Risk Notes Problem Essential hypertension (22744952) Essential hypertension (I10) Active confirmed Vital Signs Weight 210.2 lbs 11/30/2024 Blood pressure systolic 162 mm Hg 12/01/19 25 Blood pressure diastolic 100 mm Hg 025 Heart Rate 61 /min 11/30/2024 Height 64.50 in 11/30/2024 BMI 35.52 kg/m2 11/30/2024 Encounters Encounter Location Date Provider Diagnosis [facility] 1210 [facility] 36 [facility] [address] [place] [id number] 11/30/2024 Keira Pennington Essential hypertensi on I10 [...] Albarran er, 12/28/2024 04:15:00 PM, [address] [facility] 36 [facility], [address], [place], [id number], Progress Notes * MARISELA FAN:1960 (64 yo F)Acc No.[id number]:11/30/2024 Progress Notes Patient: STAN COWAN Provider: Keira Pennington M.D. :1960 A ge:64 Y S ex:Female Date:11/30/2024 [facility] [address], [place], [id number] Subjective: * Chief Complaints: * 1 . [...] * Images: Billing Information: * Visit Code: 30034 Office Visit, Est Pt., Level 4. * Procedure Codes: G2211 Complex e/m visit add on. 1036F TOBACCO NON-USER. * Electronic signature of Keira Pennington MD on 12/27/2024 at 12:45 PM EDT Sign off status: Pending * Provider: Keira Pennington M.D. Date: 0 11/30/2024 Generated for Tommy welsh/Osmani/eTransmitting on: 1 12:45 [...]
--- OUTSIDE RECORDS SUMMARY | 2024-12-12 06:15 | XMS_ITS ---
[facility] Organization [facility] Address [address] [facility] [address] [place] [id number] Care Team Providers Care Dental Hygiene Professor Name Role Phone Keira Pennington Primary Care Provider Sri Noble Unavailable [phone] Allergies Allergen (clinical drug ingredient) Drug/Non Drug Allergy documented on EMR Reaction Allergy Type Onset Date Status celecoxib CeleBREX rash Drug Allergy Active duloxetine Cymbalta Unknown Drug Allergy Active Ziac Unknown Drug Allergy Active codeine Codeine Unknown Drug Allergy Active Results Component Value Reference Range Notes P-Comprehensive Metabolic Pa rell (CMP) (Not yet reviewed by provider) Interpretation: Performing Lab: Notes/Report: Test performed by [employer], [employer] [address] [place] [address] , [address], [place] [address] Milton Self MD, Fitter Mechanic CLIA: [id number] Sodium 140 135-145 mmol/L Potassium 4.8 3.5-5.3 [...] - 38 platlet 404 100 - 400 CT Scan : Abd with contrast (Not yet reviewed by provider) Interpretation:moderate hiatal hernia, benign hepatic cysts Performing Lab: Notes/Report: moderate hiatal hernia, benign hepatic cysts Reason For Referral Diagnosis 1 Gastro-esophageal re flux disease with esophagitis (K21.0) Referral Organization Jessica Referring Provider First Name Sri Referring Provider Last Name Real Referring Provider Speciality [facility] Referred Organization [facility] OP Referred Provider WILDER BRYSON Referred Address [address] [place] [address] [facility] [id number], Referred Provider Specialty Gastroentero logy General Notes Briseida Ibarra 2024 12:53:49 PM > faxed to [facility] GI Referral Priority Routine REASON FOR [...] 12/12/2024 Encounters Encounter Location Date Provider [facility] [id number] 12/12/2024 Sri Arreolaond Abdominal pain R10.9 ; Essential (primary) hypertension [...] Date Details 12/12/2024 12/12/2024, WILDER MANRIQUEZ, [address] [facility], [place], [place], [id number], Next Appt Details Follow Up: after tests, Reas on: Provider Name:Keira Albarran er, 12/28/2024 04:15:00 PM, [address] [facility] 36 [facility], [address], [place], [place], [id number], Progress Notes * STAN FANDOB:1960 (64 yo F)Acc No.[id number]:12/12/2024 Progress Notes Patient: STAN COWAN Provider: ESE Yin :1960 A ge:64 Y S ex:Female Date:12/12/2024 Address:[address] [place] [address], [id number] Pcp:Keira Pennington Subjective: * Chief Complaints: * [...] 404 100 - 400 * Melanie Gregg Manjula 12/12/2024 01 :07:01 PM EDT > Provider reviewed results while patient in office.Sri Noble 12/12/2024 08:57:39 PM EDT > ?Imaging: CT Scan : Abd with contrast (Performed Date - 12/22/2024)?moderate hiatal hernia, benign hepatic cysts* Briseida Ibarra 12/12/2024 11:1 7:56 AM EDT > auth#[id number]; valid 12/12/2024-02/10/2025; CPT code 87974; faxed to [facility] Scheduling 2.?Gastro-esophageal reflux disease with esophagitis? [...] G 2211 Complex e/[place], [address] CBC WITH AUTO DIFF, 80243 VENIPUNCT, ROUTINE*, 1036F TOBACCO NON-USER * Follow Up: a fter tests * Images: Billing Information: * Visit Code: 40595 Office Visit, Est Pt., Level 4. * Procedure Codes: G2211 Complex e/[place]. [address] CBC WITH AUTO DIFF. 18681 VENIPUNCT, ROUTINE*. 1036F TOBACCO NON-USER. * Electronic signature of Daniella Noble APRN on 12/27/2024 at 12:44 PM EDT Sign off status: Pending * Provider: ESE Yin Date: 0 12/12/2024 Generated for Tommy welsh/Osmani/Lakhwinder on: 1 12:44 PM EDT History and [...]
--- OUTSIDE RECORDS SUMMARY | 2024-12-27 12:44 | XMS_ITS | Patient Health Record ---
Author Organization [facility] Address [address] [place] [id number] Care Team Providers Care Dragger Out Name Role Phone Keira Pennington Primary Care Provider [phone] Trev Mata Unavailable [phone] Sri Noble Unavailable [phone] Mine Plummer Unavailable [phone] Allergies Allergen (clinical drug ingredient) Drug/Non Drug [...] - 38 plat[address] 404 100 - 400 H-BUN/CREAT Reviewed date:09/12/2024 08:29:10 AM Interpretation: Performing Lab: Notes/Report: BUN 13 7-17 mg/dl CREATT 0.80 0.52-1.04 mg/dl GFRAA 88 >60 ML/MIN EGFR 72 >60 ml/min H-BUN/CREAT Reviewed date:12/20/2024 01:18:57 PM Interpretation: Performing Lab: Notes/Report: BUN 7 7-17 mg/dl CREATT 0.90 0.52-1.04 mg/dl GFRAA 77 >60 ML/MIN EGFR 63 >60 ml/min CBC Fingerstick (in house) Reviewed [...] date:06/12/2024 05:17:34 PM Interpretation:Normal Performing Lab: Notes/Report: CLIA: [id number] Milton Self MD, Sheet Rock Installer [address] [place] [address] , [address], [place] [address] Test performed by [employer] Sodium 141 135-145 mmol/L Potassium 4.3 3.5-5.3 [...] 0.5 <0.2-1.2 mg/dL A/G Ratio 1.7 1.1-2.5 P-TSH reflex to FT4 Reviewed date:12/05/2024 10:27:41 AM Interpretation:Normal Performing Lab: Notes/Report: CLIA: [id number] Milton Self MD, Sheet Rock Installer [address] [place] [address] [address], [place] [address] Test performed by [facility] TSH reflex to FT4 0.96 0.43-5.25 mU/L P-Comprehensive Metabolic Pa rell (CMP) (Not yet reviewed by provider) Interpretation: Performing Lab: Notes/Report: Test performed by [facility] [address] [facility] , [address], [place] [address] Milton Self MD, Sheet Rock Installer CLIA: [id number] Sodium 140 135-145 mmol/L Potassium 4.8 3.5-5.3 [...] 1.1-2.5 CT Scan : Abd with contrast (Not yet reviewed by provider) Interpretation:moderate hiatal hernia, benign hepatic cysts Performing Lab: Notes/Report: moderate hiatal hernia, benign hepatic cysts MRI : Brain with and without contrast Reviewed date:09/14/2024 08:37:53 AM Interpretation:normal for age Performing Lab: Notes/Report: normal for age TEN-Upper Respiratory PCR Reviewed date:05/26/2024 10:35:05 AM [...] - 38 plat 329 100 - 400 Medications Medication SIG (Take, Route, Frequency, Duration) [...] Vaccine Route Administration Date Status Comme nts Fluzone Quad-Medicare (6months&older) Unknown 04/08/2016 Refused COVID 19 Ann Unknown 07/03/2020 Administered Fluzone Quad (6months&older) IM Intramuscular 12/03/2021 Administered Fluzone Quad (6months&older) IM Intramuscular 06/10/2021 Administered Fluzone Quad (6months&older) IM Intramuscular 12/11/2019 Administered PNEUMOVAX 23 VACCINE IM Intramuscular 12/11/2019 Administe red PNEUMOVAX 23 VACCINE Unknown 11/11/2017 Refused Shingrix Unknown 11/11/2017 Refused Tetanus Tdap-Adacel (over 7yrs) Unknown 11/11/2017 Refused Problems Problem Type SNOMED Code ICD Code Onset Dates Problem Status W/U Status Risk Notes Problem Gastro-esophageal reflux disease with esophagitis (754451068) Gastro-esophageal reflux disease with esophagitis (K21.0) Active confirmed Problem Hyperkalemia (74367378) Hyperkalemia (E87.5) Active confirmed Problem Sinusitis (62078813) Sinusitis (J32.9) Active confirmed Problem Vitamin D deficiency (81891470) Vitamin D deficiency (E55.9) Active confirmed Problem Vitamin B12 deficiency (019685689) Vitamin B12 deficiency (E53.8) Active confirmed Problem Essential hypertension (22999310) Essential hypertension (I10) Active confirmed Problem Osteopenia (991892007) Osteopenia (M85.80) Active confirmed Problem Urticaria (603231135) Urticaria (L50.9) Active confirmed Problem Restless legs syndrome (09002080) Restless leg syndrome (G25.81) Active confirmed Problem Muscle weakness (56832485) Muscle weakness (M62.81) Active confirmed Problem Actinic keratosis (686214) Actinic keratosis (L57.0) Active confirmed Problem Fibromyalgia (911462617) Fibromyalgia (M79.7) Active confirmed Problem Morbid obesity (disorder) (812875391) Morbid (severe) obesity due to excess calories (E66.01) Active confirmed Problem Primary insomnia (7725730) Primary insomnia (F51.01) Active confirmed Problem Chronic pain syndrome (868499634) Chronic pain syndrome (G89.4) Active confirmed Problem Vaccination given (933928408) Encounter for immunization (Z23) Active confirmed Problem Seborrheic keratosis (07999173) Seborrheic keratosis (L82.1) Active confirmed Problem Acute maxillary sinusitis (97732614) Acute maxillary sinusitis, recurrence not specified (J01.00) Active confirmed Problem Reactive depression (situational) (59812111) Situational depression (F43.21) Active confirmed Problem Chronic fatigue syndrome (85893822) Chronic fatigue (R53.82) Active confirmed Problem Obese class II (481932136048884) BMI 36.0-36.9,adult (Z68.36) Active confirmed Problem Inflammation of bursa of olecranon (616620452) Olecranon bursitis of left elbow (M70.22) Active confirmed Problem Paroxysmal supraventricular tachycardia (46235755) Paroxysmal supraventricular tachycardia (I47.1) Active confirmed Problem History of musculoskeletal disease (981013808) H/O Sjogren's disease (Z87.39) Active confirmed Problem Menopausal symptom (30859953) Menopause syndrome (N95.1) Active confirmed Problem Dyslipidemia (399306180) Dyslipidemia (E78.5) Active confirmed Problem Allergic rhinitis (30536788) Seasonal allergic rhinitis due to other allergic trigger (J30.89) Active confirmed Problem Fibrocystic breast changes (89767833) Fibrocystic breast disease (FCBD), unspecified laterality (N60.19) Active confirmed Problem Pain due to varicose veins of lower extremity (917652873) Varicose veins of both lower extremities with pain (I83.813) Active confirmed Problem Sialoadenitis (73421437) Submandibular gland inflammation (K11.20) Active confirmed Problem Acute insomnia (617436793) Acute insomnia (G47.00) Active confirmed Problem Burning sensation of mouth (3878883890) Burning sensation of mouth (R20.8) Active confirmed Vital Signs Heart Rate 76 /min 12/12/2024 Blood pressure diastolic 94 mm Hg 12/12/2024 Height 64.50 in 12/12/2024 Blood pressure systolic 140 mm Hg 12/12/2024 Weight 202.8 lbs 12/12/2024 BMI 34.27 kg/m2 12/12/2024 Encounters Encounter Location Date Provider Diagnosis [facility] [address] [place], [place] [id number] 01/20/2024 Mine Crowdy Bronchitis J40 [facility] [address] [place], [place] [id number] 05/24/2024 Mine Crowdy Acute URI J06.9 and Bronchitis J40 [facility] [address] [place], [place] [id number] 06/08/2024 Keira Pennington Bronchitis J40 ; Essential (primary) hypertension I10 ; Chronic pain syndrome G89.4 and Seborrheic keratosis L82.1 [facility] [address] [place], [place] [id number] 08/31/2024 Trev Mata 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 ; Chronic fatigue R53.82 and BMI 36.0-36.9,adult Z68.36 [facility] [address] [place], [place] [id number] 11/30/2024 Keira Pennington Essential hypertensi on I10 and GCA (giant cell arteritis) M31.6 [facility] [address] [place], [place] [id number] 12/12/2024 Sri Noble Abdominal pain R10.9 ; Essential (primary) hypertension I10 ; Gastro-esophageal reflux disease with esophagitis K21.0 and Epigastric abdominal pain R10.13 [facility] [address] [place] [id number] 12/26/2024 Keira Pennington [facility] [address] [place] [id number] 01/25/2024 Mine Malcolmeliseo [facility] [address] [place], [place] [id number] 05/16/2024 Keira Pennington Fibromyalgia M79.7 [facility] [address] [place], [place] [id number] 05/26/2024 Mine Plummer [facility] [address] [place] [id number] 08/02/2024 Keira Pennington [facility] [address] [place], [place] [id number] 09/14/2024 Keira Pennington [facility] [address] [place], [place] [id number] 09/28/2024 Keira Pennington [facility] [address] [place] [id number] 11/20/2024 Keira Pennington [facility] [address] [place], [place] [id number] 11/23/2024 Keira Pennington [facility] [address] [place], [place] [id number] 11/24/2024 Keira Pennington Fibromyalgia M79.7 [facility] [address] [place], [place] [id number] 12/05/2024 Keira Pennington Assessments Encounter Date Diagnosis (ICD Code) Assessment Notes Treatment Notes Treatment Clinical Notes Section Notes 01/20/2024 Bronchitis (ICD-10 - J40) 05/16/2024 Fibromyalgia (ICD-10 - M79.7) 05/24/2024 Acute URI (ICD-10 - J06.9) 05/24/2024 Bronchitis (ICD-10 - J40) She has an albuterol inhaler at home she will start using. 06/08/2024 Bronchitis (ICD-10 - J40) 06/08/2024 Essential (primary) hypertension (ICD-10 - I10) 08/31/2024 Trigeminal nerve disorder (ICD-10 - G50.9) 08/31/2024 Chronic fatigue (ICD-10 - R53.82) 11/24/2024 Fibromyalgia (ICD-10 - M79.7) 11/30/2024 Essential hypertension (ICD-10 - I10) 11/30/2024 GCA (giant cell arteritis) (ICD-10 - M31.6) 12/12/2024 Abdominal pain (ICD-10 - R10.9) 12/12/2024 [...] [address], [address], [place], [place], [id number], Insurance Providers Payer Name Payer Address Payer Phone Subscriber Number Group Number Insured Name Patient Relationship to Insured Coverage Start Date Coverage End Date [employer] (MEDICAR E) [address] [address] [place] [address] [id number] STAN FAN Self - patient is the insured Medications Administered Medication Instructions Date of Administration Dosage Notes B-12 01/13/2007 1 mL B-12 01/20/2007 1 mL B-12 01/28/2011 1 mL B-12 02/27/2011 B-12 12/29/2011 1 mL B-12 03/14/2014 1 mL B-12 12/30/2016 1 mL B-12 01/06/2019 1 mL B-12 08/18/2019 1 mL B-12 12/11/2019 1 mL B-12 02/07/2020 1 mL B-12 08/27/2020 1 mL B-12 12/03/2021 1 mL B-12 09/21/2022 1 mL Vistaril 50 mg 09/23/2009 2 mL B-12 05/27/2022 1 mL B-12 02/04/2022 1 mL B-12 03/05/2020 1 mL B-12 01/10/2020 1 mL B-12 11/22/2019 1 mL B-12 10/09/2019 1 mL B-12 09/08/2019 1 mL B-12 05/19/2019 1 mL B-12 09/16/2018 1 mL B-12 02/24/2017 1 mL B-12 01/27/2017 1 mL B-12 12/21/2013 1 mL B-12 05/11/2011 1 mg B-12 12/24/2010 1 mL B-12 10/14/2009 1 mL B-12 10/02/2009 1 mL B-12 01/31/2007 1 mL B-12 01/27/2007 B-12 01/06/2007 1 mL B-12 08/12/2023 1 mL Medical (General) History Medical History History [...] 02/2021 Hospitalization History Reason Date(Month/Year) pneumonia 02/2021 [facility]-Dehydration 09/23/ to 09/25/09 severe pain in stomach and back (ER visi t) 10/2006
--- NOTE | 2024-12-27 13:00 | MR_ITS ---
FINAL REPORT TECHNIQUE: MR angiography was performed both with and without intravenous contrast injection to evaluate the intracranial vessels. CLINICAL HISTORY: left sided facial droop and numbness, symptoms for 6 months, mouth numbness for 3 years COMPARISON: None FINDINGS: MRI/MRV HEAD WITH AND WITHOUT CONTRAST: The intracranial portions of the internal carotid arteries are unremarkable. The A1 segments of the anterior cerebral arteries are normal bilaterally. There is mild irregularity of the bilateral M1 segments of the middle cerebral arteries, likely minimal atherosclerotic change. There is no hemodynamically significant stenosis. The distal posterior cerebral arteries and basilar artery are unremarkable. The posterior cerebral arteries are patent without evidence of significant stenosis. IMPRESSION: Minimal narrowing of the M1 segments of the middle cerebral arteries bilaterally, that likely is secondary to mild atherosclerotic change. No hemodynamically significant stenosis is identified in the intracranial vessels. Reviewed, Interpreted and Dictated by Damián Vázquez MD Transcribed by Shy Barrera Authenticated and [facility]
--- NOTE | 2024-12-27 13:45 | MR_ITS ---
FINAL REPORT CLINICAL HISTORY: left sided facial droop and numbness, symptoms for 6 months, mouth numbness for 3 years COMPARISON: None FINDINGS: Multiple projection images of the neck arterial vasculature were obtained without and with contrast. The raw data images were also reviewed. The aortic arch is patent. The right common carotid artery is patent. The right internal carotid artery is patent. The right external carotid artery is patent. The right vertebral artery is patent. The left common carotid artery is patent. The left internal carotid artery is patent. The left external carotid artery is patent. The left vertebral artery is patent. IMPRESSION: No hemodynamically significant stenosis in the extracranial carotid or vertebral arteries. Reviewed, Interpreted and Dictated by Damián Vázquez MD Transcribed by Shy Barrera Authenticated and [facility]
[2024-12-27] MEDS: GADOTERIDOL INJ 20ML SYRINGE 20 ML IV (13:53)
[2024-12-27] MEDS: 0.9 % SODIUM CHLORIDE 50 ML VIAL 10 ML IV (13:53)
== END 2024-12-27 23:59 | disposition home or self-care (01) ==
LOC: RAD 12:24
PROVIDERS: PCP Family Medicine; Visit Provider Specialist
DX: I66.03 Occlusion and stenosis of bilateral middle cerebral arteries (principal); G50.0 Trigeminal neuralgia; R20.0 Anesthesia of skin; R20.2 Paresthesia of skin
CPT/HCPCS: 70546; 70549; A9576

== ENCOUNTER 2025-03-28 10:43 | Outpatient (CLI) | payer MEDICARE, SELFPAY ==
--- OUTSIDE RECORDS SUMMARY | 2023-10-07 07:45 | XMS_ITS ---
Author Organization Jessica Address [address] [facility] [address] [facility] [address] [place] [id number] Care Team Providers Care Exterminator Helper Termite Name Role Phone Keira Pennington Primary Care Provider Mine Plummer Unavailable [phone] Results Component Value Reference Range Notes Hemoccult- IFOBT (in house) Reviewed date:10/13/2023 01:03:13 PM Interpretation:Negative Performing Lab: Notes/Report: Negative results Neg TEN-stool panel Reviewed date:10/12/2023 12:03:53 PM Interpretation:Quantity not sufficient for testing, not performed Performing Lab: Notes/Report: Quantity not sufficient for testing, not performed REASON FOR VISIT lab only Encounters Encounter Location Date Provider Diagnosis [facility] [address] [facility] [address] [facility] [address] [place] [id number] 10/07/2023 Mine Plummer Chronic diarrhea K52 .9 and Dark stools R19.5 Assessments Encounter Date Diagnosis (ICD Code) Assessment Notes Treatment Notes Treatment Clinical Notes Section Notes 10/07/2023 Chronic diarrhea (ICD-10 - K52.9) 10/07/2023 Dark stools (ICD-10 - R19.5) Plan Of Treatment Next Appt Details Provider Name:Keira Albarran er, 04/02/2025 04:15:00 PM, [address] [facility], [address], [place], [id number], Progress Notes * Arabella FANDOB:1960 (64 yo F)Acc No.[id number]:10/07/2023 Patient: Arabella COWAN Provider: REFUGIO Damico :1960 A ge:63 Y S ex:Female Date:10/07/2023 Address:[address] [id number] Pcp:Keira Pennington Subjective: * Chief Complaints: * 1 . Lab only. * Medical History: Objective: * Vitals: Assessment: * Assessment: 1. C hronic diarrhea - K52.9 2 . D ark stools - R19.5 Plan: * Treatment: 2.?Dark stools?LAB: Hemoccult- IFOBT (in house) (Collection Date & Time - 10/07/2023)? Negative* Value Reference Range r esults Neg * Melanie Gregg 10/07/2023 1:1 9:26 PM > Mine Plummer 10/13/2023 1:02:48 PM > see TE ?LAB: TEN-stool panel (Collection Date & Time - 10/07/2023)?Quantity not sufficient for testing, not performed* Shirley Zimmerman 10/12/2023 10:35 :56 AM > See phone encounter * Procedure Codes: 8 2274 ASSAY TEST FOR BLOOD, FECAL, Modifiers: QW * Images: Billing Information: * Visit Code: * Procedure Codes: 52442 ASSAY TEST FOR BLOOD, FECAL. Modifiers: QW * Electronic signature of REFUGIO Ortiz on 03/28/2025 at 10:46 AM EST Sign off status: Pending * Provider: REFUGIO Damico Date: 0 10/07/2023 Generated for Printi ng/Faxing/eTransmitting on: 1 10:46 AM EST
--- OUTSIDE RECORDS SUMMARY | 2023-10-18 09:15 | XMS_ITS ---
[facility] Address [address] [place] [id number] Care Team Providers Care Model And Mold Maker Plaster Name Role Phone Keira Pennington Primary Care Provider Allergies Allergen (clinical drug ingredient) Drug/Non Drug Allergy documented on EMR Reaction Allergy Type Onset Date Status celecoxib CeleBREX rash Drug Allergy Active duloxetine Cymbalta Unknown Drug Allergy Active Ziac Unknown Drug Allergy Active codeine Codeine Unknown Drug Allergy Active REASON FOR VISIT 2 months, discuss bone density screening- osteopenia, Needs colon cancer screening Medications Medication SIG (Take, Route, Frequency, Duration) Notes Start Date End Date Status levoFLOXacin 500 MG 1 tablet Orally Once a day; Duration: 7 days 02/23/2023 Not-Taking Ketoconazole 2 % 1 application Externally Twice a day; Duration: 28 day(s) 02/09/2023 Not-Taking Retin-A 0.025 % 1 application in the evening to face Externally Once a day 11/16/2022 Not-Taking Zovirax 5 % 1 application Externally Four times a day 12/22/2022 Not-Taking Reclast 5 MG/100ML as directed intravenously once Not-Taking Pramipexole Dihydrochloride 0.25 MG 1 tablet Orally at bedtime Not-Taking Premarin 0.3 MG 1 tablet Orally Once a day; Duration: 30 day(s) 09/21/2022 Not-Taking Famotidine 40 MG 1 tablet at bedtime Orally Once a day; Duration: 30 days Active Cartia XT 120 MG 1 cap(s) orally once a day; Duration: 90 days Active Furosemide 20 MG 1 tab(s) orally once a day; Duration: 90 days Active traMADol HCl 50 MG 1 tab(s) orally 3 ti mes a day as needed 05/20/2023 Active Fluticasone Propionate 50 MCG/ACT 1 spray in each nostril Nasally daily Active Diclofenac Sodium 1 % as directed applie d topically 4 times a day 06/10/2021 Active Vitamin B12 1000 MCG 1 tablet Orally Onc e a day; Duration: 90 days 08/12/2023 Active Omeprazole 40 MG 1 cap orally once a day Active Restasis 0.05 % 1 gtt in each affect ed eye every 12 hours Active Aspirin 81 MG 1 tablet Orally Once a day; Duration: 30 day(s) Active Doxepin HCl 10 MG 2 capsule at bedtime Orally At Bed Time; Duration: 30 day(s) 08/12/2023 Active Vital Signs Weight 220.0 lbs 10/18/2023 Blood pressure systolic 132 mm Hg 10/18/19 24 Blood pressure diastolic 90 mm Hg 024 Heart Rate 78 /min 10/18/2023 Height 64.50 in 10/18/2023 BMI 37.18 kg/m2 10/18/2023 Encounters Encounter Location Date Provider Diagnosis [facility] [address] [facility] [address] [place] [id number] 10/18/2023 Keira Pennington Dermatitis L30.9 ; Essential (primary) hypertension I10 and Conjunctival hemorrhage, right eye H11.31 Assessments Encounter Date Diagnosis (ICD Code) Assessment Notes Treatment Notes Treatment Clinical Notes Section Notes 10/18/2023 Dermatitis (ICD-10 - L30.9) 10/18/2023 Essential (primary) hypertension (ICD-10 - I10) 10/18/2023 Conjunctival hemorrhage, right eye (ICD-10 - H11.31) Plan Of Treatment Next Appt Details Follow Up: 3 Months, Reason: Provider Name:Keira Albarran er, 04/02/2025 04:15:00 PM, [address] [facility], [address], [place], [id number], Progress Notes * Heather FANB:1960 (64 yo F)Acc No.[id number]:10/18/2023 Progress Notes Patient: Arabella COWAN Provider: Keira Pennington M.D. :1960 A ge:63 Y S ex:Female Date:10/18/2023 Address:[address], [place], [id number] Subjective: * Chief Complaints: * 1 . 2 months. 2. Discuss bone density screening- osteopenia. 3. Needs colon cancer screening. * HPI: D ermatology: The patient is here for a follow up on rash. Pt states the rash is the same. Pt states she saw rheumatology last Wednesday and had some lab studies. Pt states she is now having some shortness of breath and blood shot right eye with some blurry vision. 63 year old female presents with c/o rash. * ROS: D ERMATOLOGY: no R keshia. n o H chayito. G ASTROENTEROLOGY: no N ausea. n o V omiting. n o D iarrhea.? U ROLOGY: no D ifficulty urinating. n o B lood in urine. * Medical History: H ypertension, Esophageal reflux with HH and possible esophageal stricture, Fibromyalgia, Irritable bowel, Migraine headaches, Depression/anxiety, Neck fracture at age of 16, Fractures of right wrist and right foot, 06/06 arthritis profile negative, Osteopenia, DEXA's 2010, 2012, 12/15/10 Holter, Sjogren's syndrome, Reclast-last dose 03/16/2017, COVID 19 Vaccine, J&J 06/2020, Pneumonia. * Surgical History: c holecystectomy , appendectomy , tonsillectomy , hysterectomy vaginal, total in [address] Jimenez , adenoidectomy , bravochip attached to esophagus , Ulises fundoplication, Dr. Gonzalez 2006, hernia 02-15-07, Loop Recorder Dr Niño 06/17/15, Heart Cath 02/2021. * Hospitalization/Major Diagno stic Procedure: s evere pain in stomach and back (ER visit) 10/2006, [facility]-Dehydration 09/23/ to 09/25/09, pneumonia 02/2021. * Family History: F ather: alive 80 yrs, Part of Lung removed, Gerd, pacemaker. M other: alive 70 yrs, hypertension, arthritis, Stress. P aternal Grand Father: . P aternal Grand Mother: . M aternal Grand Father: . M aternal Grand Mother: . S iblings: cancer bone[sister] brother]parkinson.Sister and brother with renal stones. 4 brother(s) , 1 sister(s) . . grand father and one brother suffered with Parkinson's disease. * Social History: C URRENT TOBACCO USE S moking Status: Patient does NOT smoke. C affeine: yes, frequency:daily. Exercise: yes. Home smoke detector use: yes. Marital Status: . New since last visit: none. Occupation: no. Past smoking status: no, Smoking status: Does not smoke. Occup. exposure: none. Recreational drug use: no. Alcohol: no. Sexually active: yes. Travel ouside [place]: yes, sometime. * Medications: T aking Doxepin HCl 10 MG Capsule 2 capsule at bedtime Orally At Bed Time , Taking Aspirin 81 MG Tablet Delayed Release 1 tablet Orally Once a day , Taking Restasis 0.05 % Emulsion 1 gtt in each affected eye every 12 hours , Taking traMADol HCl 50 MG Tablet 1 tab(s) orally 3 times a day as needed , Taking Fluticasone Propionate 50 MCG/ACT Suspension 1 spray in each nostril Nasally daily , Taking Diclofenac Sodium 1 % Gel as directed applied topically 4 times a day , Taking Vitamin B12 1000 MCG Tablet Extended Release 1 tablet Orally Once a day , Taking Omeprazole 40 MG Capsule Delayed Release 1 cap orally once a day , Taking Cartia XT 120 MG Capsule Extended Release 24 Hour 1 cap(s) orally once a day , Taking Furosemide 20 MG Tablet 1 tab(s) orally once a day , Taking Famotidine 40 MG Tablet 1 tablet at bedtime Orally Once a day , Not-Taking Pramipexole Dihydrochloride 0.25 MG Tablet 1 tablet Orally at bedtime , Not-Taking Premarin 0.3 MG Tablet 1 tablet Orally Once a day , Not- Taking levoFLOXacin 500 MG Tablet 1 tablet Orally Once a day , Not-Taking Ketoconazole 2 % Cream 1 application Externally Twice a day , Not-Taking Retin-A 0.025 % Cream 1 application in the evening to face Externally Once a day , Not-Taking Zovirax 5 % Cream 1 application Externally Four times a day , Not-Taking Reclast 5 MG/100ML Solution as directed intravenously once , Medication List reviewed and reconciled with the patient * Allergies: C odeine, Ziac, Cymbalta, CeleBREX: rash. Objective: * Vitals: W t:220.0, Temp:98.1, BP:132/90, HR:78, Nurse:ELIZABETH, Ht: 64.50, Visual Acuity: Left eye:20/15, Right eye:20/20, Both eyes:20/15, Comments:Without glasses, BMI:37.18. * Examination: G eneral Examination: General Appearance: N AD. H EENT: S clera and conjunctiva clear, except for smal conjunctival hemorrhage OD medially, PERRLA, fundi WNL, discs sharp.?Oral cavity: n o lesions, mucosa moist and WNL, no erythema. N faby: s upple, no lymphadenopathy. C hest: n ormal shape and expansion. H eart: R SR. L ungs: c lear to auscultation. A bdomen: b owel sounds present, soft. N eurologic Exam: I ntact, gait normal. S kin: L arge circular erythematous skin lesions on the abdomen, legs, and back, not pruritic, UNCHANGED FROM THE LAST VISIT. P eripheral pulses: n ormal (2+) bilaterally. E xtremities: n o leg edema. Assessment: * Assessment: 1. D ermatitis - L30.9 (Primary) 2 . E ssential (primary) hypertension - I10 3 . C onjunctival hemorrhage, right eye - H11.31 Plan: * Treatment: * Procedure Codes: 9 9173 VISUAL ACUITY SCREEN * Follow Up: 3 Months * Images: Billing Information: * Visit Code: 52764 Office Visit, Est Pt., Level 3. * Procedure Codes: 09441 VISUAL ACUITY SCREEN. * Electronic signature of Keira Pennington MD on 03/28/2025 at 10:47 AM EST Sign off status: Pending * Provider: Keira Pennington M.D. Date: 0 10/18/2023 Generated for Printi ng/Osmani/eTransmitting on: 1 10:47 AM EST History and Physical Notes * HPI (History of Present Illness) Category Sub-Category Detail Notes Category Not es Dermatology rash Examination Category Sub-Category Detail Notes Category Not es General Examination HEENT: Sclera and c onjunctiva clear, except for smal conjunctival hemorrhage OD medially, PERRLA, fundi WNL, discs sharp Heart: RSR Lungs: clear to auscultatio n Abdomen: bowel sounds present , soft Extremities: no leg edema General Appearance: NAD Skin: Large circular eryth ematous skin lesions on the abdomen, legs, and back, not pruritic, UNCHANGED FROM THE LAST VISIT Neurologic Exam: Intact, gait normal Neck: supple, no lymphaden opathy Oral cavity: no lesions, mucosa m oist and WNL, no erythema Peripheral pulses: normal (2+) bilatera lly Chest: normal shape and exp ansion
--- OUTSIDE RECORDS SUMMARY | 2024-01-20 05:30 | XMS_ITS ---
Author Organization [facility] Address [address] [place] [id number] Care Team Providers Care Cinema Or Theatre Manager Name Role Phone Keira Pennington Primary Care Provider Mine Plummer Unavailable [phone] Allergies Allergen (clinical drug ingredient) Drug/Non Drug Allergy documented on EMR Reaction Allergy Type Onset Date Status celecoxib CeleBREX rash Drug Allergy Active duloxetine Cymbalta Unknown Drug Allergy Active Ziac Unknown Drug Allergy Active codeine Codeine Unknown Drug Allergy Active REASON FOR VISIT Follow Up from [facility]; Possible Bronchitis Medications Medication SIG (Take, Route, Frequency, Duration) Notes Start Date End Date Status Fluticasone Propionate 50 MCG/ACT 1 spray in each nostril Nasally daily Active traMADol HCl 50 MG 1 tab(s) orally 3 times a day as needed 11/16/2023 Active Furosemide 20 MG 1 tab(s) orally once a day; Duration: 90 days Active Cartia XT 120 MG 1 cap(s) orally once a day; Duration: 90 days Active Omeprazole 40 MG 1 cap orally once a day Active Zithromax Z-Russell 250 MG 2 pills first day then one daily for 4 days orally as directed; Duration: 5 days 01/20/2024 Active Vitamin B12 1000 MCG 1 tablet Orally Onc e a day; Duration: 90 days 08/12/2023 Active Promethazine-DM 6.25-15 MG/5ML 5 ml oral ly every 6 hours prn; Duration: 5 days 01/20/2024 Active Diclofenac Sodium 1 % as directed applie d topically 4 times a day 06/10/2021 Active Albuterol Sulfate HFA 108 (9 0 Base) MCG/ACT 1 puff Inhalation every 4 hrs, prn 01/20/2024 Active Benzonatate 100 MG 1 capsule as needed Orally Three times a day Active Aspirin 81 MG 1 tablet Orally Once a day; Duration: 30 day(s) Active Doxepin HCl 10 MG 2 capsule at bedtime Orally At Bed Time; Duration: 30 day(s) 08/12/2023 Active methylPREDNISolone 4 MG 1 tablet with fo od or milk Orally every 12 hrs; Duration: 30 day(s) Active Vital Signs Weight 220.4 lbs 01/20/2024 Blood pressure systolic 120 mm Hg 01/20/20 Blood pressure diastolic 80 mm Hg 024 Heart Rate 70 /min 01/20/2024 Height 64.50 in 01/20/2024 BMI 37.24 kg/m2 01/20/2024 Encounters Encounter Location Date Provider Diagnosis [facility] [address] [facility] [address] [facility] [address] [place], [place] [id number] 01/20/2024 Mine Plummer Bronchitis J40 Assessments Encounter Date Diagnosis (ICD Code) Assessment Notes Treatment Notes Treatment Clinical Notes Section Notes 01/20/2024 Bronchitis (ICD-10 - J40) Plan Of Treatment Medication Medication Name Sig Start Date Stop Date Notes Amoxicillin-Pot Clavulanate 875-125 MG 1 tablet Orally every 12 hrs Zithromax Z-Russell 250 MG 2 pills first day then one daily for 4 days orally as directed; Duration: 5 days 01/20/2024 Promethazine-DM 6.25-15 MG/5ML 5 ml oral ly every 6 hours prn; Duration: 5 days 01/20/2024 Albuterol Sulfate HFA 108 (9 0 Base) MCG/ACT 1 puff Inhalation every 4 hrs, prn 01/20/2024 Next Appt Details Follow Up: prn, Reason: Provider Name:Keira Albarran er, 04/02/2025 04:15:00 PM, [address] [facility] [address] [facility], [address], [place], [place], [id number], Progress Notes * Ceasar FAN:1960 (64 yo F)Acc No.[id number]:01/20/2024 Progress Notes Patient: Arabella COWAN Provider: REFUGIO Damico :1960 A ge:63 Y S ex:Female Date:01/20/2024 Address:[address], [place], [id number] Pcp:Keira Pennington Subjective: * Chief Complaints: * 1 . Follow Up from [facility]; Possible Bronchitis. * HPI: H PI: 63 year old female presents with c/o Patient is here today for?Pt is here today for a f/u from [facility]. Pt was seen on 01/15 for cough and congestion. [facility] found small old calcified granuloma in the periphery of the left mid lung. Other than that chest x ray was clear. Pt sts she may have possible bronchitis . E NT/respiratory: c/o cough. c/o Short of Breath P t sts she took an at home covid test which was negative. Pt sts the prescriptions from [facility] have not helped her, she is still sob of and sts it does hurt when she coughs . * ROS: D ERMATOLOGY: no R keshia. [...] US: yes, sometime. * Medications: T aking Amoxicillin-Pot Clavulanate 875-125 MG Tablet 1 tablet Orally every 12 hrs , Taking Benzonatate 100 MG Capsule 1 capsule as needed Orally Three times a day , Taking methylPREDNISolone 4 MG Tablet 1 tablet with food or milk Orally every 12 hrs , Taking Doxepin HCl 10 MG Capsule 2 capsule at bedtime Orally At Bed Time , Taking Aspirin 81 MG Tablet Delayed Release 1 tablet Orally Once a day , Taking Diclofenac Sodium 1 % Gel [...] tab(s) orally once a day , Taking traMADol HCl 50 MG Tablet 1 tab(s) orally 3 times a day as needed , Taking Fluticasone Propionate 50 MCG/ACT Suspension 1 spray in each nostril Nasally daily , Medication List reviewed and reconciled with the patient * Allergies: C odeine, Ziac, Cymbalta, CeleBREX: rash. Objective: * Vitals: W t:220.4, Temp:97.8, BP:120/80, HR:70, O2 Sat:98% on RA, Nurse:SALO, Ht: 64.50, BMI:37.24. * Examination: E NT/Respiratory: General Appearance: Does not appear to feel well. E ars: a uditory canals normal bilaterally, TM's WNL. N ose : turbinates red, congested.?Sinuses : non tender bilaterally. O ral cavity : no erythema or exudate seen on pharynx. N faby : supple, no cervical lymphadenopathy. H eart : R RR, normal S1 S2, no murmurs. L ungs: expiratory wheezes, no rales. Assessment: * Assessment: 1. Libby chaney - Terry (Primary) Plan: * Treatment: * Procedure Codes: 9 4760 PULSE OX * Follow Up: p rn * Images: Billing Information: * Visit Code: 20113 Office Visit, Est Pt., Level 3. * Procedure Codes: 08732 PULSE OX. * Electronic signature of REFUGIO Ortiz on 03/28/2025 at 10:47 AM EST Sign off status: Pending * Provider: REFUGIO Damico Date: Generated for Tommy welsh/Osmani/Dhirajitting on: 10:47 AM EST History and Physical Notes * HPI (History of Present Illness) Category Sub-Category Detail Notes Category Not es ENT/respiratory Short of Breath Pt sts she took an at home covid test which was negative. Pt sts the prescriptions from [facility] have not helped her, she is still sob of and sts it does hurt when she coughs cough HPI Patient is here today for Pt is here today for a f/u from [facility]. Pt was seen on 01/15 for cough and congestion. [facility] found small old calcified granuloma in the periphery of the left mid lung. Other than that chest x ray was clear. Pt sts she may have possible bronchitis Examination Category Sub-Category Detail Notes Category Not es ENT/Respiratory Oral cavity : no erythema or exudate s een on pharynx Sinuses : non tender bilateral ly Ears: auditory canals norm al bilaterally, TM's WNL Neck : supple, no cervical lymphadenopathy Heart : RRR, normal S1 S2, n o murmurs Lungs: expiratory wheezes, no rales General Appearance: Does not appear to f eel well Nose : turbinates red, becky ested
--- OUTSIDE RECORDS SUMMARY | 2024-05-24 05:45 | XMS_ITS ---
[facility] Organization [facility] Address [address] [place] [id number] Care Team Providers Care Watch Commander Name Role Phone Keira Pennington Primary Care Provider Mine Plummer Unavailable [phone] Allergies Allergen (clinical drug ingredient) Drug/Non Drug Allergy documented on EMR Reaction Allergy Type Onset Date Status celecoxib CeleBREX rash Drug Allergy Active duloxetine Cymbalta Unknown Drug Allergy Active Ziac Unknown Drug Allergy Active codeine Codeine Unknown Drug Allergy Active Results Component Value Reference Range Notes CBC Fingerstick (in house) Reviewed date:05/24/2024 01:14:17 PM Interpretation: Performing Lab: Notes/Report: wbc 3.7 3.5 - 10 lym 42.7% 15 - 50 mid 7.4% 2 - 15 gran 49.9% 35 - 80 rbc 4.28 3.5 - 5.5 hgb 12.9 11.5 - 16.5 hct 39.2 35 - 55 mcv 91.6 75 - 100 mch 30.3 25 - 35 mchc 33.0 31 - 38 plat 329 100 - 400 TEN-Upper Respiratory PCR Reviewed date:05/26/2024 10:35:05 AM Interpretation:Abnormal Performing Lab: Notes/Report: Abnormal REASON FOR VISIT cough, congestion & feverblisters Medications Medication SIG (Take, Route, Frequency, Duration) Notes Start Date End Date Status Vitamin B12 1000 MCG 1 tablet Orally Onc e a day; Duration: 90 days 08/12/2023 Active Doxepin HCl 10 MG 2 capsule at bedtime Orally At Bed Time; Duration: 30 day(s) 08/12/2023 Active Diclofenac Sodium 1 % as directed applie d topically 4 times a day 06/10/2021 Active Benzonatate 200 MG 1 capsule Orally Thr ee times a day 05/24/2024 Active Aspirin 81 MG 1 tablet Orally Once a day; Duration: 30 day(s) Active Promethazine-DM 6.25-15 MG/5ML 5 ml as needed Orally every 6 hrs, prn 05/24/2024 Active Omeprazole 40 MG 1 cap orally once a day Active Furosemide 20 MG 1 tab(s) orally once a day; Duration: 90 days Active Cartia XT 120 MG 1 cap(s) orally once a day; Duration: 30 days Active traMADol HCl 50 MG 1 tab(s) orally 3 ti mes a day as needed 05/17/2024 Active Fluticasone Propionate 50 MCG/ACT 1 spray in each nostril Nasally daily Active Vital Signs Weight 218.0 lbs 05/24/2024 Blood pressure systolic 126 mm Hg 05/24/19 25 Blood pressure diastolic 82 mm Hg 025 Heart Rate 85 /min 05/24/2024 Height 64.50 in 05/24/2024 BMI 36.84 kg/m2 05/24/2024 Encounters Encounter Location Date Provider Diagnosis [facility] [address] [facility] [address] [place] [address], [place] [id number] 05/24/2024 Mine Plummer Acute URI J06.9 and Bronchitis J40 Assessments Encounter Date Diagnosis (ICD Code) Assessment Notes Treatment Notes Treatment Clinical Notes Section Notes 05/24/2024 Acute URI (ICD-10 - J06.9) 05/24/2024 Bronchitis (ICD-10 - J40) She has an albuterol inhaler at home she will start using. Plan Of Treatment Medication Medication Name Sig Start Date Stop Date Notes Benzonatate 200 MG 1 capsule Orally Thr ee times a day 05/24/2024 Promethazine-DM 6.25-15 MG/5ML 5 ml as n eeded Orally every 6 hrs, prn 05/24/2024 Treatment Notes Assessment Notes Bronchitis She has an albuterol inhaler at home she will start using. Next Appt Details Follow Up: via phone to repo rt test results, Reason: Provider Name:Keira Albarran er, 04/02/2025 04:15:00 PM, [address], [address], [place], [place], [id number], Progress Notes * Arabella FANDOB:1960 (64 yo F)Acc No.[id number]:05/24/2024 Progress Notes Patient: Arabella COWAN Provider: REFUGIO Damico :1960 A ge:63 Y S ex:Female Date:05/24/2024 Address:[address], [place], [id number] Pcp:Keira Pennington Subjective: * Chief Complaints: * 1 . Cough, congestion & feverblisters. * HPI: E NT/respiratory: The pt is here today with c/o fever blisters, continued cough and congestion. Pt states her grandchildren were diagnosed with rhinovirus about 4 weeks ago. Pt states she started with symptoms a couple days later. Pt states yesterday she had nausea and vomiting. Pt states one week ago she had fever at 103 but none now. Pt states she is having some shortness of breath. 63 year old female presents with c/o cough. c/o ear pain.? c/o Short of Breath. Denies : sore throat. D enies : Fever. D enies : Chest Pain. * ROS: D ERMATOLOGY: no R keshia. [...] tablet Orally Once a day , Taking Fluticasone Propionate 50 MCG/ACT Suspension 1 spray in each nostril Nasally daily , Taking Omeprazole 40 MG Capsule Delayed Release 1 cap orally once a day , Taking Furosemide 20 MG Tablet 1 tab(s) orally once a day , Taking traMADol HCl 50 MG Tablet 1 tab(s) orally 3 times a day as needed , Taking Cartia XT 120 MG Capsule Extended Release 24 Hour 1 cap(s) orally once a day , Discontinued Promethazine-DM 6.25-15 MG/5ML Syrup 5 ml orally every 6 hours prn , Discontinued Zithromax Z-Russell 250 MG Tablet 2 pills first day then one daily for 4 days orally as directed , Discontinued Benzonatate 100 MG Capsule 1 capsule as needed Orally Three times a day , Discontinued methylPREDNISolone 4 MG Tablet 1 tablet with food or milk Orally every 12 hrs , Discontinued Nystatin 651182 UNIT/ML Suspension 5 mL swish and spit Mouth/Throat Four times a day , Discontinued Albuterol Sulfate HFA 108 (90 Base) MCG/ACT Aerosol Solution INHALE 1 PUFF BY MOUTH EVERY 4 HOURS NEEDED , Medication List reviewed and reconciled with the patient * Allergies: C odeine, Ziac, Cymbalta, CeleBREX: rash. Objective: * Vitals: W t:218.0, Temp:98.1, BP:126/82, HR:85, O2 Sat:99% on RA, Nurse:ELIZABETH, Ht: 64.50, BMI:36.84. * Examination: E NT/Respiratory: General Appearance: N AD. E ars: a uditory canals normal bilaterally, TM's WNL. N ose : turbinates red, congested. S inuses : tender maxillary sinuses bilaterally. O ral cavity : erythema without exudate on pharynx. N faby : n o cervical lymphadenopathy. H eart : R RR, normal S1 S2, no murmurs. L ungs: expiratory wheezes, no rales. Assessment: * Assessment: 1. A hasmukh CHICAS - J06.9 (Primary) 2 . Libby chaney - J40 Plan: * Treatment: Value Reference Range w bc 3.7 3.5 - 10 * l ym 42.7% 15 - 50 * m id 7.4% 2 - 15 * g ran 49.9% 35 - 80 * r bc 4.28 3.5 - 5.5 * h gb 12.9 11.5 - 16.5 * h ct 39.2 35 - 55 * m cv 91.6 75 - 100 * m ch 30.3 25 - 35 * m chc 33.0 31 - 38 * p lat 329 100 - 400 * Melanie Gregg 05/24/2024 11: 24:23 AM > , Provider reviewed results while patient in office. ?LAB: TEN-Upper Respiratory PCR (Collection Date & Time - 05/24/2024)? Abnormal* Shirley Zimmerman 05/26/2024 10:35 :00 AM > See phone encounter 2.?Bronchitis? Notes: She has an albuterol inhaler at home she will start using.?? * Procedure Codes: 9 4760 [place], [address] CAPILLARY BLOOD DRAW, 97188 CBC WITH AUTO DIFF, 3074F SYST BP LT 130 MM HG, 3079F DIAST BP 80-89 MM HG * Follow Up: v ia phone to report test results * Images: Billing Information: * Visit Code: 49028 Office Visit, Est Pt., Level 3. * Procedure Codes: [address] [place]. [address] CAPILLARY BLOOD DRAW. 78523 CBC WITH AUTO DIFF. 3074F SYST BP LT 130 MM HG. 3079F DIAST BP 80-89 MM HG. * Electronic signature of REFUGIO Ortiz on 03/28/2025 at 10:47 AM EST Sign off status: Pending * Provider: REFUGIO Damico Date: 0 05/24/2024 Generated for Tommy welsh/Osmani/eTransmitting on: 1 10:47 AM EST History and Physical Notes * HPI (History of Present Illness) Category Sub-Category Detail Notes Category Not es ENT/respiratory sore throat ear pain Short of Breath Chest Pain cough Fever Examination Category Sub-Category Detail Notes Category Not es ENT/Respiratory Oral cavity : erythema without exudate on pharynx Sinuses : tender maxillary sin uses bilaterally Ears: auditory canals norm al bilaterally, TM's WNL Neck : no cervical lymphade nopathy Heart : RRR, normal S1 S2, n o murmurs Lungs: expiratory wheezes, no rales General Appearance: NAD Nose : turbinates red, becky ested
--- OUTSIDE RECORDS SUMMARY | 2024-06-08 09:45 | XMS_ITS ---
Author Organization [facility] Address [address] [place] [id number] Care Team Providers Care Sales Enablement Specialist Name Role Phone Keira Pennington Primary Care Provider Allergies Allergen (clinical drug ingredient) Drug/Non Drug Allergy documented on EMR Reaction Allergy Type Onset Date Status celecoxib CeleBREX rash Drug Allergy Active duloxetine Cymbalta Unknown Drug Allergy Active Ziac Unknown Drug Allergy Active codeine Codeine Unknown Drug Allergy Active Results Component Value Reference Range Notes CBC Fingerstick (in house) Reviewed date:06/09/2024 10:02:02 AM Interpretation: Performing Lab: Notes/Report: wbc 4.7 3.5 - 10 lym 38.8% 15 - 50 mid 8.1% 2 - 15 gran 53.1% 35 - 80 rbc 4.07 3.5 - 5.5 hgb 12.3 11.5 - 16.5 hct 37.2 35 - 55 mcv 91.4 75 - 100 mch 30.3 25 - 35 mchc 33.2 31 - 38 plat 405 100 - 400 P-Comprehensive Metabolic Pa rell (CMP) Reviewed date:06/12/2024 05:17:34 PM Interpretation:Normal Performing Lab: Notes/Report: Test performed by [employer], [facility] [address] [place] [address] , [address], [place] [address] Milton Self MD, Branch Associate CLIA: [id number] Sodium 141 135-145 mmol/L Potassium 4.3 3.5-5.3 mmol/L Chloride 104 97-108 mmol/L CO2 24 22-32 mmol/L Glucose 91 65-99 mg/dL BUN 9 8-23 mg/dL Creatinine 0.85 0.50-1.00 mg/dL Calcium 9.3 8.6-10.4 mg/dL eGFR by Creatinine 77 >59 mL/min/1.73m2 Protein 6.2 6.0-8.3 g/dL Albumin 3.9 3.5-5.3 g/dL Alkaline Phosphatase 97 35-121 IU/L ALT (SGPT) 13 <5-47 IU/L AST (SGOT) 16 <5-40 IU/L Bilirubin, Total 0.5 <0.2-1.2 mg/dL A/G Ratio 1.7 1.1-2.5 REASON FOR VISIT Check Up, Needs labs & colon cancer screening Medications Medication SIG (Take, Route, Frequency, Duration) Notes Start Date End Date Status Benzonatate 200 MG 1 capsule Orally Thr ee times a day 05/24/2024 Active Albuterol Sulfate HFA 108 (9 0 Base) MCG/ACT 1 puff as needed Inhalation every 4 hrs, prn 05/26/2024 Active levoFLOXacin 750 MG 1 tablet Orally Once a day; Duration: 7 days 06/08/2024 Active traMADol HCl 50 MG 1 tab(s) orally 3 times a day as needed 05/17/2024 Active Cartia XT 120 MG 1 cap(s) orally once a day; Duration: 30 days Active Omeprazole 40 MG 1 cap orally once a day Active Furosemide 20 MG 1 tab(s) orally once a day; Duration: 90 days Active Fluticasone Propionate 50 MCG/ACT 1 spray in each nostril Nasally daily Active Diclofenac Sodium 1 % as directed applie d topically 4 times a day 06/10/2021 Active Vitamin B12 1000 MCG 1 tablet Orally Onc e a day; Duration: 90 days 08/12/2023 Active Hydroxychloroquine Sulfate 1 00 MG as directed Orally twice a day Active Aspirin 81 MG 1 tablet Orally Once a day; Duration: 30 day(s) Active Restasis 0.05 % 1 drop into affected eye Ophthalmic Twice a day Active Pilocarpine HCl 5 MG 1 tablet Orally Thr ee times a day; Duration: 30 day(s) Active Vital Signs Weight 223.4 lbs 06/08/2024 Blood pressure systolic 114 mm Hg 06/09/19 25 Blood pressure diastolic 84 mm Hg 025 Heart Rate 83 /min 06/08/2024 Height 64.50 in 06/08/2024 BMI 37.75 kg/m2 06/08/2024 Encounters Encounter Location Date Provider Diagnosis Jessica 1210 [facility] 36 [facility] [address] [place] [id number] 06/08/2024 Keira Pennington Bronchitis J40 ; Essential (primary) hypertension I10 ; Chronic pain syndrome G89.4 and Seborrheic keratosis L82.1 Assessments Encounter Date Diagnosis (ICD Code) Assessment Notes Treatment Notes Treatment Clinical Notes Section Notes 06/08/2024 Bronchitis (ICD-10 - J40) 06/08/2024 Essential (primary) hypertension (ICD-10 - I10) 06/08/2024 Chronic pain syndrome (ICD-10 - G89.4) 06/08/2024 Seborrheic keratosis (ICD-10 - L82.1) Plan Of Treatment Medication Medication Name Sig Start Date Stop Date Notes levoFLOXacin 750 MG 1 tablet Orally Once a day; Duration: 7 days 06/08/2024 Next Appt Details Follow Up: 2 Months, Reason: Provider Name:Keira Albarran er, 04/02/2025 04:15:00 PM, [address] [facility] 36 [facility], [address], [place], [id number], Procedure Notes * Category Sub-Category Detail Notes Cryotherapy Benign Lesion Method: Wallac h LL 100 used to freeze and refreeze the lesions Post-Op Instruction: clean wound with vi odell water twice a day , Apply Vaseline twice a day to wound Progress Notes * Arabella FANDOB:1960 (64 yo F)Acc No.[id number]:06/08/2024 Progress Notes Patient: Soy Arabella ROSE Provider: Keira Pennington M.D. :1960 A ge:63 Y S ex:Female Date:06/08/2024 Address:[facility] [address] [id number] Subjective: * Chief Complaints: * 1 . Check Up. 2. Needs labs & colon cancer screening. * HPI: P ain: The pt is here for a check up on Fibromyalgia. Pt states her pain is about the same. Pt states her cough is doing better but still has some yellow sputum in the mornings. Tested positive for Moraxella catarrhalis in addition to Flu A. D ermatology: c/o skin lesion T he right infraorbital conchis K is recurring , mid back there is also a lesion that her bra rubs. * ROS: D ERMATOLOGY: no R keshia. [...] US: yes, sometime. * Medications: T aking Restasis 0.05 % Emulsion 1 drop into affected eye Ophthalmic Twice a day , Taking Pilocarpine HCl 5 MG Tablet 1 tablet Orally Three times a day , Taking Hydroxychloroquine Sulfate 100 MG Tablet as directed Orally twice a day , Taking Aspirin 81 MG Tablet Delayed [...] cap(s) orally once a day , Taking Benzonatate 200 MG Capsule 1 capsule Orally Three times a day , Taking Albuterol Sulfate HFA 108 (90 Base) MCG/ACT Aerosol Solution 1 puff as needed Inhalation every 4 hrs, prn , Discontinued Doxepin HCl 10 MG Capsule 2 capsule at bedtime Orally At Bed Time , Discontinued Promethazine- DM 6.25-15 MG/5ML Syrup 5 ml as needed Orally every 6 hrs, prn , Discontinued Cefdinir 300 MG Capsule 1 cap(s) Orally Two times a day , Medication List reviewed and reconciled with the patient * Allergies: C odeine, Ziac, Cymbalta, CeleBREX: rash. Objective: * Vitals: W t:223.4, Temp:98.1, BP:114/84, HR:83, O2 Sat:99% on RA, Nurse:ELIZABETH, Ht: 64.50, BMI:37.75. * Examination: G eneral Examination: General Appearance: N AD, hoarse. H EENT: S clera and conjunctiva clear, P ERRLA, There is a recurrent seborrheic lesion of the right infraorbital area, 3mm. O ral cavity: n o lesions, mucosa moist and WNL, no erythema. N faby: s upple, no lymphadenopathy. C hest: n ormal shape and expansion. H eart: R SR. L ungs: c lear to auscultation. A bdomen: b owel sounds present, soft. N eurologic Exam: I ntact, gait normal. S kin: skin lesions on the abdomen, legs, and back, have resolved with treatment (Lichen planus). There is a 4mm seborrheic lesion of the mid back.?Peripheral pulses: n ormal . E xtremities: t race leg edema. ? Assessment: * Assessment: 1. B ronchitis - J40 (Primary) 2 . E ssential (primary) hypertension - I10? 3. C hronic pain syndrome - G89.4 4 . S eborrheic keratosis - L82.1 Plan: * Treatment: Value Reference Range w bc 4.7 3.5 - 10 * l ym 38.8% 15 - 50 * m id 8.1% 2 - 15 * g ran 53.1% 35 - 80 * r bc 4.07 3.5 - 5.5 * h gb 12.3 11.5 - 16.5 * h ct 37.2 35 - 55 * m cv 91.4 75 - 100 * m ch 30.3 25 - 35 * m chc 33.2 31 - 38 * p lat 405 100 - 400 * Melanie Gregg 06/08/2024 2:5 5:28 PM > 1+ Provider reviewed results while patient in office. 2.?Essential (primary) hypertension?LAB: P-Comprehensive Metabolic Panel (CMP) (Collection Date & Time - 06/08/2024 01:50 PM)?Normal* Value Reference Range A /G Ratio 1.7 1.1-2.5 - * A lbumin 3.9 3.5-5.3 - g/dL * A lkaline Phosphatase 97 35-121 - IU/L * A LT (SGPT) 13 <5-47 - IU/L * A ST (SGOT) 16 <5-40 - IU/L * B ilirubin, Total 0.5 <0.2-1.2 - mg/dL * B UN 9 8-23 - mg/dL * C alcium 9.3 8.6-10.4 - mg/dL * C hloride 104 97-108 - mmol/L * C O2 24 22-32 - mmol/L * C reatinine 0.85 0.50-1.00 - mg/dL * G lucose 91 65-99 - mg/dL * P otassium 4.3 3.5-5.3 - mmol/L * S odium 141 135-145 - mmol/L * P rotein 6.2 6.0-8.3 - g/dL * e GFR by Creatinine 77 >59 - mL/min/1.73m2 * Melanie Gregg 06/12/2024 5:1 7:19 PM > 1+ Provider reviewed results while patient in office. 3.?Others? Start levoFLOXacin Tablet, 750 MG, 1 tablet, Orally, Once a day, 7 days, 7 Tablet, Refills 0.? * Procedures: C ryotherapy Benign Lesion: Method: W allach LL 100 used to freeze and refreeze the lesions. P ost-Op Instruction: c lean wound with vinegar water twice a day , Apply Vaseline twice a day to wound. * Procedure Codes: 1 7000 DESTRUCTION BENIGN LESION, CRYOSURGERY,ELECTROSURGERY FIRST LESION, 03736 DESTRUCTION BENIGN LESION,CRYO, ELECTRO, 2-14 LESIONS, G2211 Complex e/[place], [address] [place], [address] CAPILLARY BLOOD DRAW, 03814 CBC WITH AUTO DIFF, 3074F SYST BP LT 130 MM HG, 3079F DIAST BP 80-89 MM HG * Follow Up: 2 Months * Images: Billing Information: * Visit Code: 47568 Office Visit, Est Pt., Level 4. Modifiers: 25 * Procedure Codes: 99283 DESTRUCTION BENIGN LESION, CRYOSURGERY,ELECTROSURGERY FIRST LESION. 60403 DESTRUCTION BENIGN LESION,CRYO, ELECTRO, 2-14 LESIONS. G2211 Complex e/[place]. [address] [place]. [address] CAPILLARY BLOOD DRAW. 33429 CBC WITH AUTO DIFF. 3074F SYST BP LT 130 MM HG. 3079F DIAST BP 80-89 MM HG. * Electronic signature of Keira Pennington MD on 03/28/2025 at 10:47 AM EST Sign off status: Pending * Provider: Keira Pennington M.D. Date: 0 06/08/2024 Generated for Tommy welsh/Osmani/eTransmitting on: 1 10:47 AM EST History and Physical Notes * HPI (History of Present Illness) Category Sub-Category Detail Notes Category Not es Dermatology skin lesion The right infrao rbital conchis K is recurring , mid back there is also a lesion that her bra rubs Examination Category Sub-Category Detail Notes Category Not es General Examination HEENT: Sclera and c onjunctiva clear, PERRLA, There is a recurrent seborrheic lesion of the right infraorbital area, 3mm Heart: RSR Lungs: clear to auscultatio n Abdomen: bowel sounds present , soft Extremities: trace leg edema General Appearance: NAD, hoarse Skin: skin lesions on the abdomen, legs, and back, have resolved with treatment (Lichen planus). There is a 4mm seborrheic lesion of the mid back Neurologic Exam: Intact, gait normal Neck: supple, no lymphaden opathy Oral cavity: no lesions, mucosa m oist and WNL, no erythema Peripheral pulses: normal Chest: normal shape and exp ansion
--- OUTSIDE RECORDS SUMMARY | 2024-08-31 04:30 | XMS_ITS ---
Author Organization [facility] Address [address] [place] [id number] Care Team Providers Care Dance Coach Name Role Phone Keira Pennington Primary Care Provider [phone] Trev Mata Unavailable [phone] Allergies Allergen (clinical drug ingredient) Drug/Non Drug Allergy documented on EMR Reaction Allergy Type Onset Date Status celecoxib CeleBREX rash Drug Allergy Active duloxetine Cymbalta Unknown Drug Allergy Active Ziac Unknown Drug Allergy Active codeine Codeine Unknown Drug Allergy Active Results Component Value Reference Range Notes MRI : Brain with and without contrast Reviewed date:09/14/2024 08:37:53 AM Interpretation:normal for age Performing Lab: Notes/Report: normal for age Reason For Referral Reason facial pain and numb ness Diagnosis 1 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) [facility] Referring Provider First Name Trev Hernandez Referring Provider Last Name Adolfo Referring Provider Speciality [facility] Referred Provider Fallon Ford Referred Provider Specialty Neurology General Notes Briseida Ibarra 2024 08:54:07 AM > faxed to [facility] Neurology Referral Priority Routine REASON FOR VISIT left side of face hurting Medications Medication SIG (Take, Route, Frequency, Duration) Notes Start Date End Date Status Aspirin 81 MG 1 tablet Orally Once a day; Duration: 30 day(s) Active Diclofenac Sodium 1 % as directed applie d topically 4 times a day 06/10/2021 Active Furosemide 20 MG 1 tab(s) orally once a day; Duration: 90 days Active Vitamin B12 1000 MCG 1 tablet Orally Onc e a day; Duration: 90 days 08/12/2023 Active Fluticasone Propionate 50 MCG/ACT 1 spray in each nostril Nasally daily Active Pilocarpine HCl 5 MG 1 tablet Orally Thr ee times a day; Duration: 30 day(s) Active Hydroxychloroquine Sulfate 1 00 MG as directed Orally twice a day Active dilTIAZem HCl ER Coated Bead s 120 MG TAKE 1 CAPSULE BY MOUTH DAILY; Duration: 30 Active Restasis 0.05 % 1 drop into affected eye Ophthalmic Twice a day Active Omeprazole 40 MG TAKE 1 CAPSULE BY MOUTH DAILY; Duration: 90 Active traMADol HCl 50 MG 1 tab(s) orally 3 times a day as needed 05/17/2024 Active Albuterol Sulfate HFA 108 (9 0 Base) MCG/ACT 1 puff as needed Inhalation every 4 hrs, prn 05/26/2024 Active Problems Problem Type SNOMED Code ICD Code Onset Dates Problem Status W/U Status Risk Notes Problem Obese class II (006867865169 105) BMI 36.0-36.9,a dult (Z68.36) Active confirmed Vital Signs Weight 215 lbs 08/31/2024 Blood pressure systolic 120 mm Hg 09/01/19 25 Blood pressure diastolic 76 mm Hg 025 Heart Rate 70 /min 08/31/2024 Height 64.50 in 08/31/2024 BMI 36.33 kg/m2 08/31/2024 Encounters Encounter Location Date Provider Diagnosis [facility] [address] [id number] 08/31/2024 R David Mata 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 ; Chronic fatigue R53.82 and BMI 36.0-36.9,adult Z68.36 Assessments Encounter Date Diagnosis (ICD Code) Assessment Notes Treatment Notes Treatment Clinical Notes Section Notes 08/31/2024 Trigeminal nerve disorder (ICD-10 - G50.9) 08/31/2024 Chronic fatigue (ICD-10 - R53.82) 08/31/2024 BMI 36.0-36.9,adult (ICD-10 - Z68.36) Plan Of Treatment Referrals Referral Date Details 08/31/2024 08/31/2024, facial p ain and numbness, Fallon Ford Next Appt Details Follow Up: via phone to repo rt test results, Reason: Provider Name:Keira Albarran er, 04/02/2025 04:15:00 PM, [address], [address], [place], [id number], Progress Notes * Arabella FANDOB:1960 (64 yo F)Acc No.[id number]:08/31/2024 Progress Notes Patient: Arabella COWAN Provider: Trev Mata M.D. :1960 A ge:64 Y S ex:Female Date:08/31/2024 Address:[facility] [address], [place], [id number] Pcp:Keira Pennington Subjective: * Chief Complaints: * 1 . Left side of face hurting. * HPI: N eurology: She presents with complaint of perioral and left facial numbness that has been present for several months but just in the last couple of days she has been having left facial pain that is fairly constant but seems worse at night. She localizes the pain around the left mandible primarily that radiates to sabianism and neck. It sometimes feels like her face is drawing downward. She has not noticed pain with eating. No complaints of sinus congestion, pressure, or drainage. No ear pain. * ROS: D ERMATOLOGY: no R keshia. [...] stomach and back (ER visit) 10/2006, [facility]-Dehydration to 09/25/09, pneumonia 02/2021. * Family History: [...] in each nostril Nasally daily , Taking Furosemide 20 MG Tablet 1 tab(s) orally once a day , Taking traMADol HCl 50 MG Tablet 1 tab(s) orally 3 times a day as needed , Taking Albuterol Sulfate HFA 108 (90 Base) MCG/ACT Aerosol Solution 1 puff as needed Inhalation every 4 hrs, prn , Taking dilTIAZem HCl ER Coated Beads 120 MG Capsule Extended Release 24 Hour TAKE 1 CAPSULE BY MOUTH DAILY , Taking Omeprazole 40 MG Capsule Delayed Release TAKE 1 CAPSULE BY MOUTH DAILY , Medication List reviewed and reconciled with the patient * Allergies: C odeine, Ziac, Cymbalta, CeleBREX: rash. Objective: * Vitals: W t: 215, Temp: 97.7, BP: 120/76, HR: 70, O2 Sat: 96% on RA, Nurse: carlton, Ht: 64.50, BMI:36.33. * Examination: G eneral Examination: General Appearance: N AD. H EENT: T Ms normal. Nares patent. Sinuses nontender. O ral cavity: S he is a dentulous, otherwise normal. N faby: N o cervical adenopathy. N eurologic Exam: N o facial weakness. ? Assessment: * Assessment: 1. 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 C hronic fatigue - R53.82 3 . B UT 36.0-36.9,adult - Z68.36 Plan: * Treatment: ? Referral To:Fallon Ford??Neurology ?Reason:facial pain and numbness * Procedure Codes: G 2211 Complex e/m visit add on, G8752 MOST RECENT SYSTOLIC BP < 140MM HG, G8754 MOST RECENT DIASTOLIC BP < 90MM HG, 1036F TOBACCO NON-USER * Follow Up: v ia phone to report test results * Images: Billing Information: * Visit Code: 17571 Office Visit, Est Pt., Level 4. * Procedure Codes: G2211 Complex e/m visit add on. G8752 MOST RECENT SYSTOLIC BP < 140MM HG. G8754 MOST RECENT DIASTOLIC BP < 90MM HG. 1036F TOBACCO NON-USER. * Electronic signature of Trev Mata MD on 03/28/2025 at 10:46 AM EST Sign off status: Pending * Provider: Trev Mata M.D. Date: 0 08/31/2024 Generated for Yevgeniyi anitha/Osmani/eTadriánitting on: 1 10:46 AM EST History and Physical Notes * HPI (History of Present Illness) Category Sub-Category Detail Notes Category Not es Neurology She presents wi th complaint of perioral and left facial numbness that has been present for several months but just in the last couple of days she has been having left facial pain that is fairly constant but seems worse at night. She localizes the pain around the left mandible primarily that radiates to sabianism and neck. It sometimes feels like her face is drawing downward. She has not noticed pain with eating. No complaints of sinus congestion, pressure, or drainage. No ear pain. Examination Category Sub-Category Detail Notes Category Not es General Examination HEENT: TMs normal. Nares patent. Sinuses nontender General Appearance: NAD Neurologic Exam: No facial weakness Neck: No cervical adenopat hy Oral cavity: She is a dentulous, otherwise normal Consultation Request Notes Referral Date Referring Provider Referred Provider Not es 08/31/2024 Trev Mata Maria facial rodrigo n and numbness
--- OUTSIDE RECORDS SUMMARY | 2024-11-30 10:30 | XMS_ITS ---
Author Organization [facility] Address [address] [facility] [place] [address] [place] [id number] Care Team Providers Care Staff Midwife Name Role Phone Keira Pennington Primary Care Provider [phone] Allergies Allergen (clinical drug ingredient) Drug/Non Drug Allergy documented on EMR Reaction Allergy Type Onset Date Status celecoxib CeleBREX rash Drug Allergy Active duloxetine Cymbalta Unknown Drug Allergy Active Ziac Unknown Drug Allergy Active codeine Codeine Unknown Drug Allergy Active Results Component Value Reference Range Notes P-TSH reflex to FT4 Reviewed date:12/05/2024 10:27:41 AM Interpretation:Normal Performing Lab: Notes/Report: Test performed by [facility] [address] , [address], [place] [address] Milton Self MD, Rubber Mill Operator CLIA: [id number] TSH reflex to FT4 0.96 0.43-5.25 mU/L REASON FOR VISIT checkup, Due for MAMMOGRAM, Due for Cologuard/Colonoscopy Medications Medication SIG (Take, Route, Frequency, Duration) Notes Start Date End Date Status Aspirin 81 MG 1 tablet Orally Once a day; Duration: 30 day(s) Active Hydroxychloroquine Sulfate 100 MG as directed Orally twice a day Active Pilocarpine HCl 5 MG 1 tablet Orally Three times a day; Duration: 30 day(s) Active Vitamin B12 1000 MCG 1 tablet Orally Onc e a day; Duration: 90 days 08/12/2023 Not-Taking Diclofenac Sodium 1 % as directed applie d topically 4 times a day 06/10/2021 Active traMADol HCl 50 MG 1 tablet as needed orally 3 times a day; Duration: 30 days 11/24/2024 Active predniSONE 20 MG 1 tablet with food or milk Orally Once a day Active Restasis 0.05 % 1 drop into affected eye Ophthalmic Twice a day; Duration: 90 days Active Rinvoq 15 MG 1 tablet Orally Once a day Active Furosemide 20 MG 1 tab(s) orally once a day; Duration: 90 days Active dilTIAZem HCl ER Coated Beads 120 MG 1 capsule Orally twice a day; Duration: 90 days Active Fluticasone Propionate 50 MCG/ACT 1 spray in each nostril Nasally daily Not-Taking Omeprazole 40 MG TAKE 1 CAPSULE BY MOUTH DAILY; Duration: 30 days Active Albuterol Sulfate HFA 108 (90 Base) MCG/ACT 1 puff as needed Inhalation every 4 hrs, prn 05/26/2024 Not-Taking Problems Problem Type SNOMED Code ICD Code Onset Dates Problem Status W/U Status Risk Notes Problem Essential hypertension (22535129) Essential hypertension (I10) Active confirmed Vital Signs Weight 210.2 lbs 11/30/2024 Blood pressure systolic 162 mm Hg 12/01/19 25 Blood pressure diastolic 100 mm Hg 025 Heart Rate 61 /min 11/30/2024 Height 64.50 in 11/30/2024 BMI 35.52 kg/m2 11/30/2024 Encounters Encounter Location Date Provider Diagnosis [facility] [address] [facility] [address] [place] [id number] 11/30/2024 Keira Pennington Essential hypertensi on I10 and GCA (giant cell arteritis) M31.6 Assessments Encounter Date Diagnosis (ICD Code) Assessment Notes Treatment Notes Treatment Clinical Notes Section Notes 11/30/2024 Essential hypertension (ICD-10 - I10) 11/30/2024 GCA (giant cell arteritis) (ICD-10 - M31.6) Plan Of Treatment Medication Medication Name Sig Start Date Stop Date Notes dilTIAZem HCl ER Coated Bead s 120 MG 1 capsule Orally twice a day; Duration: 90 days Next Appt Details Follow Up: 4 Weeks, Reason: Provider Name:Keira Albarran er, 04/02/2025 04:15:00 PM, [address] [facility] [address], [address], [place], [id number], Progress Notes * Ceasar FAN:1960 (64 yo F)Acc No.[id number]:11/30/2024 Progress Notes Patient: Arabella COWAN Provider: Keira Pennington M.D. :1960 A ge:64 Y S ex:Female Date:11/30/2024 [facility] [address] [place], [phone] Subjective: * Chief Complaints: * 1 . Checkup. 2. Due for MAMMOGRAM. 3. Due for Cologuard/Colonoscopy. * HPI: C ardiology: The pt is here today for a check up on Hypertension. Pt states she did check her BP at home but gave up on that. Pt states she saw Rhematology, milo Haskins ast month and they said she has GIANT CELL ARTERITIS. This is certainly consistant with past symptoms, including left facial discomfort. Being treated now with Rinvoq. She asks for re-evaluation of thyroid status. Pt is not fasting. 64 year old female presents with c/o Short of Breath w ith exertion. Denies : Chest Pain. D enies : Dizziness. D enies : Palpitations. * ROS: D ERMATOLOGY: no R keshia. [...] Cath 02/2021. * Hospitalization/Major Diagno stic Procedure: michael everjennifer pain in stomach and back (ER visit) [...] US: yes, sometime. * Medications: T aking Rinvoq 15 MG Tablet Extended Release 24 Hour 1 tablet Orally Once a day , Taking predniSONE 20 MG Tablet 1 tablet with food or milk Orally Once a day , Taking Pilocarpine HCl 5 MG Tablet 1 tablet Orally Three times a day , Taking Hydroxychloroquine Sulfate 100 MG Tablet as directed Orally twice a day , Taking Aspirin 81 MG Tablet Delayed Release 1 tablet Orally Once a day , Taking Diclofenac Sodium 1 % Gel as directed applied topically 4 times a day , Taking dilTIAZem HCl ER Coated Beads 120 MG Capsule Extended Release 24 Hour 1 capsule Orally Once a day , Taking Omeprazole 40 MG Capsule Delayed Release TAKE 1 CAPSULE BY MOUTH DAILY , Taking Furosemide 20 MG Tablet 1 tab(s) orally once a day , Taking Restasis 0.05 % Emulsion 1 drop into affected eye Ophthalmic Twice a day , Taking traMADol HCl 50 MG Tablet 1 tablet as needed orally 3 times a day , Not-Taking Vitamin B12 1000 MCG Tablet Extended Release 1 tablet Orally Once a day , Not-Taking Fluticasone Propionate 50 MCG/ACT Suspension 1 spray in each nostril Nasally daily , Not- Taking Albuterol Sulfate HFA 108 (90 Base) MCG/ACT Aerosol Solution 1 puff as needed Inhalation every 4 hrs, prn , Medication List reviewed and reconciled with the patient * Allergies: C odeine, Ziac, Cymbalta, CeleBREX: rash. Objective: * Vitals: W t: 210.2, Temp: 98.0, BP: 162/100, HR: 61, O2 Sat: 99% on RA, Nurse: ELIZABETH, Ht: 64.50, BMI:35.52. * Examination: G eneral Examination: General Appearance: N AD, hoarse. H EENT: S clera and conjunctiva clear, P ERRLA. O ral cavity: n o lesions, mucosa moist and WNL, no erythema. N faby: s upple, no lymphadenopathy. C hest: n ormal shape and expansion. H eart: R SR. L ungs: c lear to auscultation. A bdomen: bowel sounds present, soft. N eurologic Exam: I ntact, gait normal. S kin: skin lesions on the abdomen, legs, and back, have resolved with treatment (Lichen planus). . P eripheral pulses: n ormal . E xtremities: t race leg edema. Assessment: * Assessment: 1. E ssential hypertension - I10 (Primary) 2 . G CA (giant cell arteritis) - M31.6 Plan: * Treatment: 2. G CA (giant cell arteritis) L AB: P-TSH reflex to FT4 (Collection Date & Time - 11/30/2024 03:45 PM) N ormal Value Reference Range T SH reflex to FT4 0.96 0.43-5.25 - mU/L * Bri hCu 12/05/2024 10:2 7:32 AM EDT > See phone encounter * Procedure Codes: G 2211 Complex e/m visit add on, 1036F TOBACCO NON-USER * Follow Up: 4 Weeks * Images: Billing Information: * Visit Code: 10201 Office Visit, Est Pt., Level 4. * Procedure Codes: G2211 Complex e/m visit add on. 1036F TOBACCO NON-USER. * Electronic signature of Keira Pennington MD on 03/28/2025 at 10:47 AM EST Sign off status: Pending * Provider: Keira Pennington M.D. Date: 0 11/30/2024 Generated for Tommy welsh/Osmani/Dhirajitting on: 1 10:47 AM EST History and Physical Notes * HPI (History of Present Illness) Category Sub-Category Detail Notes Category Not es Cardiology Short of Breath with exertion Chest Pain Palpitations Dizziness Examination Category Sub-Category Detail Notes Category Not es General Examination HEENT: Sclera and conjunctiv a clear, PERRLA Heart: RSR Lungs: clear to auscultatio n Abdomen: bowel sounds present , soft Extremities: trace leg edema General Appearance: NAD, hoarse Skin: skin lesions on the abdomen, legs, and back, have resolved with treatment (Lichen planus). Neurologic Exam: Intact, gait normal Neck: supple, no lymphaden opathy Oral cavity: no lesions, mucosa m oist and WNL, no erythema Peripheral pulses: normal Chest: normal shape and exp ansion
--- OUTSIDE RECORDS SUMMARY | 2024-12-12 05:15 | XMS_ITS ---
Author Organization [facility] Address [address] [place] [phone] Care Team Providers Care Dental Instrument Maker Name Role Phone Keira Pennington Primary Care Provider Sri Noble Unavailable [phone] Allergies Allergen (clinical drug ingredient) Drug/Non Drug Allergy documented on EMR Reaction Allergy Type Onset Date Status celecoxib CeleBREX rash Drug Allergy Active duloxetine Cymbalta Unknown Drug Allergy Active Ziac Unknown Drug Allergy Active codeine Codeine Unknown Drug Allergy Active Results Component Value Reference Range Notes CBC Venipuncture (in house) Reviewed date:12/12/2024 08:57:42 PM Interpretation: Performing Lab: Notes/Report: wbc 6.3 3.5 - 10 lymph 30.7% 15 - 50 mid 6.2% 2 - 15 gran 63.1% 35 - 80 rbc 4.70 3.5 - 5.5 hgb 14.8 11.5 - 16.5 hct 43.9 35 - 55 mcv 93.4 75 - 100 mch 31.5 25 - 35 mchc 33.7 31 - 38 platlet 404 100 - 400 P-Comprehensive Metabolic Pa rell (CMP) Reviewed date:12/27/2024 02:23:30 PM Interpretation:BS 105 Performing Lab: Notes/Report: Test performed by [facility] , [address], [place] [address] Milton Self MD, Acid Loader CLIA: [id number] Sodium 140 135-145 mmol/L Potassium 4.8 3.5-5.3 mmol/L Chloride 103 97-108 mmol/L CO2 24 20-32 mmol/L Glucose 105 65-99 mg/dL BUN 14 8-23 mg/dL Creatinine 0.93 0.50-1.00 mg/dL Calcium 9.5 8.6-10.4 mg/dL eGFR by Creatinine 69 >59 mL/min/1.73m2 Protein 6.4 6.0-8.3 g/dL Albumin 4.5 3.5-5.3 g/dL Alkaline Phosphatase 71 35-121 IU/L ALT (SGPT) 23 <5-47 IU/L AST (SGOT) 20 <5-40 IU/L Bilirubin, Total 0.7 <0.2-1.2 mg/dL A/G Ratio 2.4 1.1-2.5 CT Scan : Abd with contrast Reviewed date:12/27/2024 02:22:35 PM Interpretation:moderate hiatal hernia, benign hepatic cysts Performing Lab: Notes/Report: moderate hiatal hernia, benign hepatic cysts Reason For Referral Diagnosis 1 Gastro-esophageal re flux disease with esophagitis (K21.0) Referral Organization Jessica Referring Provider First Name Sri Referring Provider Last Name Real Referring Provider [facility] Referred Organization [facility] OP Referred Provider WILDER BRYSON Referred Address [address] [address] [id number], Referred Provider Specialty Gastroentero logy General Notes Briseida Ibarra 2024 12:53:49 PM > faxed to [facility] GI Referral Priority Routine REASON FOR VISIT GI issues Medications Medication SIG (Take, Route, Frequency, Duration) Notes Start Date End Date Status Esomeprazole Magnesium 40 MG 1 capsule 1 /2 to 1 hour before morning meal Orally Once a day; Duration: 30 day(s) 12/12/2024 Active Vitamin B12 1000 MCG 1 tablet Orally Onc e a day; Duration: 90 days 08/12/2023 Not-Taking Voquezna 20 MG 1 tablet Orally Once a day; Duration: 4 days 12/12/2024 Active Fluticasone Propionate 50 MCG/ACT 1 spray in each nostril Nasally daily Not-Taking Albuterol Sulfate HFA 108 (90 Base) MCG/ACT 1 puff as needed Inhalation every 4 hrs, prn 05/26/2024 Not-Taking Diclofenac Sodium 1 % as directed applie d topically 4 times a day 06/10/2021 Active Furosemide 20 MG 1 tab(s) orally once a day; Duration: 90 days Active Restasis 0.05 % 1 drop into affected eye Ophthalmic Twice a day; Duration: 90 days Active traMADol HCl 50 MG 1 tablet as needed orally 3 times a day; Duration: 30 days 11/24/2024 Active dilTIAZem HCl ER Coated Beads 120 MG 1 capsule Orally twice a day; Duration: 90 days Active Hydroxychloroquine Sulfate 100 MG as directed Orally twice a day Active Aspirin 81 MG 1 tablet Orally Once a day; Duration: 30 day(s) Active Rinvoq 15 MG 1 tablet Orally Once a day Active predniSONE 20 MG 1 tablet with food or milk Orally Once a day Not-Taking Pilocarpine HCl 5 MG 1 tablet Orally Three times a day; Duration: 30 day(s) Active Esomeprazole Magnesium 40 MG 1 capsule 1 /2 to 1 hour before morning meal Orally Once a day; Duration: 30 days 12/12/2024 Active Vital Signs Weight 202.8 lbs 12/12/2024 Blood pressure systolic 140 mm Hg 12/13/19 25 Blood pressure diastolic 94 mm Hg 025 Heart Rate 76 /min 12/12/2024 Height 64.50 in 12/12/2024 BMI 34.27 kg/m2 12/12/2024 Encounters Encounter Location Date Provider Diagnosis [facility] [address] [id number] 12/12/2024 Sri Noble Abdominal pain R10.9 ; Essential (primary) hypertension I10 ; Gastro-esophageal reflux disease with esophagitis K21.0 and Epigastric abdominal pain R10.13 Assessments Encounter Date Diagnosis (ICD Code) Assessment Notes Treatment Notes Treatment Clinical Notes Section Notes 12/12/2024 Abdominal pain (ICD-10 - R10.9) 12/12/2024 Essential (primary) hypertension (ICD-10 - I10) 12/12/2024 Gastro-esophageal reflux disease with esophagitis (ICD-10 - K21.0) stressed bland food/drink; small amounts at a time; ; GI referral; needs EGD; will go and schedule CT of abdomen 12/12/2024 Epigastric abdominal pain (ICD-10 - R10.13) bland diet; mylanta/maalox prn Plan Of Treatment Medication Medication Name Sig Start Date Stop Date Notes Voquezna 20 MG 1 tablet Orally Once a day; Duration: 4 days 12/12/2024 Esomeprazole Magnesium 40 MG 1 capsule 1 /2 to 1 hour before morning meal Orally Once a day; Duration: 30 days 12/12/2024 Treatment Notes Assessment Notes Gastro-esophageal reflux dis ease with esophagitis stressed bland food/drink; small amounts at a time; ; GI referral; needs EGD; will go and schedule CT of abdomen Epigastric abdominal pain bland diet; my lanta/maalox prn Referrals Referral Date Details 12/12/2024 12/12/2024, WILDER MANRIQUEZ, [address] [facility], [place], [place], [phone], Next Appt Details Follow Up: after tests, Reas on: Provider Name:Keira Albarran er, 04/02/2025 04:15:00 PM, [address] [facility] 36 [facility], [address], [place], [place], [phone], Progress Notes * Arabella FANDOB:1960 (64 yo F)Acc No.[id number]:12/12/2024 Progress Notes Patient: Arabella COWAN Provider: ESE Yin :1960 A ge:64 Y S ex:Female Date:12/12/2024 Address:[address] [place] [address], [id number] Pcp:Keira Pennington Subjective: * Chief Complaints: * 1 . GI issues. * HPI: G astroenterology: She describes her epigastric pain as severe with pressure/aching most of the time and burning with any eating or drinking. 64 year old female presents with c/o Abdominal Pain u pper mid abdomen; worse for the past 2 weeks. c/o Heartburn. c/o Abdominal Distension. c/o Belching. c/o gas. Denies : Nausea. D enies : Vomiting. D enies : Diarrhea. D enies : Fever. D enies : Blood in Stool. D enies : Hemetemesis. D enies : Constipation. D enies : melena. Acid Reflux P t has been on Omeprazole 40 mg but sts that even taking 2 capsules a day she is still having a lot of pain. Pt had talked to Bri, and she sent a message to Dr. Pennington letting him know and Dr. Pennington recommended switching medication to Esomeprazole 40 mg once a day but by the time this change had been made pt already had an appt scheduled to see Alma to discuss this. Bri has not sent the prescription of Esomeprazole to the pharmacy in case Alma recommends trying something different. Pt states the pain is worse with eating and drinking. Pt states she held all her medications yesterday except for her BP meds. * Medical History: H ypertension, Esophageal reflux [...] tablet Orally Once a day , Taking Pilocarpine HCl 5 MG Tablet 1 tablet Orally Three times a day , Taking Hydroxychloroquine Sulfate 100 MG Tablet as directed Orally twice a day , Taking Aspirin 81 MG Tablet Delayed Release 1 tablet Orally Once a day , Taking Diclofenac Sodium 1 % Gel as directed applied topically 4 times a day , Taking Furosemide 20 MG Tablet 1 tab(s) orally once a day , Taking Restasis 0.05 % Emulsion 1 drop into affected eye Ophthalmic Twice a day , Taking traMADol HCl 50 MG Tablet 1 tablet as needed orally 3 times a day , Taking dilTIAZem HCl ER Coated Beads 120 MG Capsule Extended Release 24 Hour 1 capsule Orally twice a day , Taking Esomeprazole Magnesium 40 MG Capsule Delayed Release 1 capsule 1/2 to 1 hour before morning meal Orally Once a day , Not-Taking predniSONE 20 MG Tablet 1 tablet with food or milk Orally Once a day , Not-Taking Vitamin B12 1000 MCG Tablet Extended Release 1 tablet Orally Once a day , Not-Taking Fluticasone Propionate 50 MCG/ACT Suspension 1 spray in each nostril Nasally daily , Not-Taking Albuterol Sulfate HFA 108 (90 Base) MCG/ACT Aerosol Solution 1 puff as needed Inhalation every 4 hrs, prn , Medication List reviewed and reconciled with the patient * Allergies: C odeine, Ziac, Cymbalta, CeleBREX: rash. Objective: * Vitals: W t: 202.8, Temp: 98.2, BP: 140/94, HR: 76, O2 Sat: 100% on RA, Nurse: ELIZABETH, Ht: 64.50, BMI:34.27. * Examination: G eneral Examination: General Appearance: N AD, alert, pleasant; appears well hydrated. O ral cavity: m ucosa moist and WNL. H eart: R RR. L ungs: C TAB A&P. A bdomen: s oft, bowel sounds present, no organomegaly or masses; tender mid and upper abd; greater TTP in epigastric region. N eurologic Exam: a lert and oriented. ? Assessment: * Assessment: 1. A bdominal pain - R10.9 (Primary) 2 . E ssential (primary) hypertension - I10 3 . G sarthak-esophageal reflux disease with esophagitis - K21.0 ?4. E pigastric abdominal pain - R10.13 Plan: * Treatment: Value Reference Range A /G Ratio 2.4 1.1-2.5 - * A lbumin 4.5 3.5-5.3 - g/dL * A lkaline Phosphatase 71 35-121 - IU/L * A LT (SGPT) 23 <5-47 - IU/L * A ST (SGOT) 20 <5-40 - IU/L * B ilirubin, Total 0.7 <0.2-1.2 - mg/dL * B UN 14 8-23 - mg/dL * C alcium 9.5 8.6-10.4 - mg/dL * C hloride 103 97-108 - mmol/L * C O2 24 20-32 - mmol/L * C reatinine 0.93 0.50-1.00 - mg/dL * G lucose 105 H 65-99 - mg/dL * P otassium 4.8 3.5-5.3 - mmol/L * S odium 140 135-145 - mmol/L * P rotein 6.4 6.0-8.3 - g/dL * e GFR by Creatinine 69 >59 - mL/min/1.73m2 * Sri Noble 12/18/2024 08:56:53 AM EDT >left message for return Sri Macedo 12/27/2024 02:23:08 PM EDT >I spoke with pt and reported results ?LAB: CBC Venipuncture (in house) (Collection Date & Time - 12/12/2024)* Value Reference Range w bc 6.3 3.5 - 10 * l ymph 30.7% 15 - 50 * m id 6.2% 2 - 15 * g ran 63.1% 35 - 80 * r bc 4.70 3.5 - 5.5 * h gb 14.8 11.5 - 16.5 * h ct 43.9 35 - 55 * m cv 93.4 75 - 100 * m ch 31.5 25 - 35 * m chc 33.7 31 - 38 * p latlet 404 100 - 400 * Melanie Gregg 12/12/2024 01 :07:01 PM EDT > Provider reviewed results while patient in office.Sri Noble 12/12/2024 08:57:39 PM EDT > ?Imaging: CT Scan : Abd with contrast (Performed Date - 12/22/2024)?moderate hiatal hernia, benign hepatic cysts* Briseida Ibarra 12/12/2024 11:1 7:56 AM EDT > auth#[id number]; valid 12/12/2024-02/10/2025; CPT code 41385; faxed to [facility] Sri Bernal 12/27/2024 02:17:07 PM EDT >I spoke with pt and reported results 2.?Gastro-esophageal reflux disease with esophagitis? Start Esomeprazole Magnesium Capsule Delayed Release, 40 MG, 1 capsule 1/2 to 1 hour before morningmeal, Orally, Once a day, 30 days, 30, Refills 5;?Start Voquezna Tablet, 20 MG, 1 tablet, Orally, Once a day, 4 days, 4 Tablet, Notes: samples given to pt.?? Notes: stressed bland food/drink; small amounts at a time; ; GI referral; needs EGD; will go and schedule CT of abdomen? Referral To:WILDER BRYSON??Gastroenterology ?Reason: 3.?Epigastric abdominal pain? Notes: bland diet; mylanta/maalox prn?? * Procedure Codes: G 2211 Complex e/[place], [address] CBC WITH AUTO DIFF, 53434 VENIPUNCT, ROUTINE*, 1036F TOBACCO NON-USER * Follow Up: a fter tests * Images: Billing Information: * Visit Code: 16910 Office Visit, Est Pt., Level 4. * Procedure Codes: G2211 Complex e/[place]. [address] CBC WITH AUTO DIFF. 12794 VENIPUNCT, ROUTINE*. 1036F TOBACCO NON-USER. * Electronic signature of Daniella Noble APRN on 03/28/2025 at 10:46 AM EST Sign off status: Pending * Provider: ESE Yin Date: 0 12/12/2024 Generated for Yevgeniyi anitha/Osmani/eTransmitting on: 1 10:46 AM EST History and Physical Notes * HPI (History of Present Illness) Category Sub-Category Detail Notes Category Not es Gastroenterology Fever Vomiting Abdominal Pain upper mid abdomen; w orse for the past 2 weeks Diarrhea Blood in Stool Hemetemesis Nausea Abdominal Distension Heartburn Acid Reflux Pt has been on Omepr azole 40 mg but sts that even taking 2 capsules a day she is still having a lot of pain. Pt had talked to Bri, and she sent a message to Dr. Pennington letting him know and Dr. Pennington recommended switching medication to Esomeprazole 40 mg once a day but by the time this change had been made pt already had an appt scheduled to see Alma to discuss this. Bri has not sent the prescription of Esomeprazole to the pharmacy in case Alma recommends trying something different. Pt states the pain is worse with eating and drinking. Pt states she held all her medications yesterday except for her BP meds Constipation Belching gas melena Examination Category Sub-Category Detail Notes Category Not es General Examination Heart: RRR Lungs: CTAB A&P Abdomen: soft, bowel sounds p resent, no organomegaly or masses; tender mid and upper abd; greater TTP in epigastric region General Appearance: NAD, alert, pleasant ; appears well hydrated Neurologic Exam: alert and oriented Oral cavity: mucosa moist and WNL Consultation Request Notes Referral Date Referring Provider Referred Provider Not es 12/12/2024 Sri Noble EARL
--- OUTSIDE RECORDS SUMMARY | 2024-12-28 11:15 | XMS_ITS ---
Author Organization [facility] Address [address] [place] [id number] Care Team Providers Care Fixed Income Portfolio Manager Name Role Phone Keira Pennington Primary Care Provider Allergies Allergen (clinical drug ingredient) Drug/Non Drug Allergy documented on EMR Reaction Allergy Type Onset Date Status celecoxib CeleBREX rash Drug Allergy Active duloxetine Cymbalta Unknown Drug Allergy Active Ziac Unknown Drug Allergy Active codeine Codeine Unknown Drug Allergy Active Results Component Value Reference Range Notes P-Vitamin B12 Reviewed date:01/02/2025 08:38:51 AM Interpretation:290 Performing Lab: Notes/Report: Test performed by [facility] [address] [place], [place] [address] [employer] [place] , [place] [address] Milton Self MD, Auricular Therapist CLIA: [id number] Vitamin B12 [phone] pg/mL P-Comprehensive Metabolic Pa rell (CMP) Reviewed date:01/02/2025 08:38:51 AM Interpretation:Normal Performing Lab: Notes/Report: Test performed by [facility] [address] [place], [place] [address] [employer] [address], [place] [address] Milton Self MD, Auricular Therapist CLIA: [id number] Sodium 141 135-145 mmol/L Potassium 4.0 3.5-5.3 mmol/L Chloride 108 97-108 mmol/L CO2 23 20-32 mmol/L Glucose 98 65-99 mg/dL BUN 6 8-23 mg/dL Creatinine 0.85 0.50-1.00 mg/dL Calcium 9.2 8.6-10.4 mg/dL eGFR by Creatinine 77 >59 mL/min/1.73m2 Protein 6.0 6.0-8.3 g/dL Albumin 3.9 3.5-5.3 g/dL Alkaline Phosphatase 77 35-121 IU/L ALT (SGPT) 15 <5-47 IU/L AST (SGOT) 16 <5-40 IU/L Bilirubin, Total <0.2 <0.2-1.2 mg/dL A/G Ratio 1.9 1.1-2.5 P-Vitamin D, 1, 25 Dihydroxy Reviewed date:01/02/2025 08:38:51 AM Interpretation:Normal Performing Lab: Notes/Report: Test performed by [facility], [address] , [address], [place] [address] Milton Self MD, Auricular Therapist CLIA: [id number] Vitamin D, 1, 25 Dihydroxy 60.2 19.9-79.3 pg/m L REASON FOR VISIT 4 weeks Medications Medication SIG (Take, Route, Frequency, Duration) Notes Start Date End Date Status Gabapentin 300 MG 1 capsule Orally Once a day Active Rinvoq 15 MG 1 tablet Orally Once a day Active Pilocarpine HCl 5 MG 1 tablet Orally Three times a day; Duration: 30 day(s) Active Aspirin 81 MG 1 tablet Orally Once a day; Duration: 30 day(s) Active Albuterol Sulfate HFA 108 (90 Base) MCG/ACT 1 puff as needed Inhalation every 4 hrs, prn 05/26/2024 Not-Taking Hydroxychloroquine Sulfate 100 MG as directed Orally twice a day Not-Taking predniSONE 20 MG 1 tablet with food or milk Orally Once a day Not-Taking Vitamin B12 1000 MCG 1 tablet Orally Onc e a day; Duration: 90 days 08/12/2023 Not-Taking Fluticasone Propionate 50 MCG/ACT 1 spray in each nostril Nasally daily Not-Taking Voquezna 20 MG 1 tablet Orally daily; Duration: 30 days 12/12/2024 Active Esomeprazole Magnesium 40 MG 1 capsule 1 /2 to 1 hour before morning meal Orally Once a day; Duration: 30 day(s) 12/12/2024 Active Furosemide 20 MG 1 tab(s) orally [...] twice a day; Duration: 90 days Active Diclofenac Sodium 1 % as directed applie d topically 4 times a day 06/10/2021 Active Problems Problem Type SNOMED Code ICD Code Onset Dates Problem Status W/U Status Risk Notes Problem Polymyalgia rheumatica (15867055) Polymyalgia rheumatica (M35.3) Active confirmed Problem Giant cell arteritis (disorder) (854291511) GCA (giant cell arteritis) (M31.6) Active confirmed Problem Facial paresthesia (06716721) Facial paresthesia (R20.2) Active confirmed Vital Signs Weight 211.0 lbs 12/28/2024 Blood pressure systolic 120 mm Hg 12/29/19 25 Blood pressure diastolic 80 mm Hg 025 Heart Rate 73 /min 12/28/2024 Height 64.50 in 12/28/2024 BMI 35.65 kg/m2 12/28/2024 Encounters Encounter Location Date Provider [facility] [address] [facility] [address] [place], [place] [id number] 12/28/2024 Keira Pennington Polymyalgia rheumati ca M35.3 ; GCA (giant cell arteritis) M31.6 ; Facial paresthesia R20.2 ; Essential hypertension I10 ; Gastro-esophageal reflux disease with esophagitis K21.0 ; Vitamin B12 deficiency E53.8 and Vitamin D deficiency E55.9 Assessments Encounter Date Diagnosis (ICD Code) Assessment Notes Treatment Notes Treatment Clinical Notes Section Notes 12/28/2024 Polymyalgia rheumatica (ICD-10 - M35.3) 12/28/2024 GCA (giant cell arteritis) (ICD-10 - M31.6) 12/28/2024 Facial paresthesia (ICD-10 - R20.2) 12/28/2024 Essential hypertension (ICD-10 - I10) 12/28/2024 Gastro-esophageal reflux disease with esophagitis (ICD-10 - K21.0) 12/28/2024 Vitamin B12 deficiency (ICD-10 - E53.8) 12/28/2024 Vitamin D deficiency (ICD-10 - E55.9) Plan Of Treatment Medication Medication Name Sig Start Date Stop Date Notes Voquezna 20 MG 1 tablet Orally daily; Duration: 30 days Next Appt Details Follow Up: 3 Months, Reason: Provider Name:Keira Albarran er, 04/02/2025 04:15:00 PM, [address], [address], [place], [place], [id number], Progress Notes * Arabella FANDOB:1960 (64 yo F)Acc No.[id number]:12/28/2024 Progress Notes Patient: Arabella COWAN Provider: Keira Pennington M.D. :1960 A ge:64 Y S ex:Female Date:12/28/2024 Address:[address], [place], [id number] Subjective: * Chief Complaints: * 1 . 4 weeks. * HPI: G astroenterology: The pt is here for a follow up on abdominal pain and Ct scan results. Pt states she is doing better. Still having some occasional pain. Pt states she would like to have her B12 and vitamin D checked. 64 year old female presents with c/o Abdominal Pain e pigastric, episodic. N eurology: MRA results are pending. Ordered by Dr. Ford. See notes. Also see rheumatology notes. She QUIT taking Hydroxychloroquine due to GI distress. * ROS: C ONSTITUTIONAL: Positive for A [facility] physician seen since last visit? Yes, Change in medication since last visit? Yes, Gabapentin added by Neurology Are you taking antibiotics? No, Are you taking steroids? No. D ERMATOLOGY: no R keshia. n o [...] foot, 06/06 arthritis profile negative, Osteopenia, DEXA's 2012, 12/15/10 Holter, Sjogren's syndrome, Reclast-last dose [...] US: yes, sometime. * Medications: T aking Gabapentin 300 MG Capsule 1 capsule Orally Once a day , Taking Rinvoq 15 MG Tablet Extended Release 24 Hour 1 tablet Orally Once a day , Taking Pilocarpine HCl 5 MG Tablet 1 tablet Orally Three times a day , Taking Aspirin 81 MG [...] morning meal Orally Once a day , Not- Taking Hydroxychloroquine Sulfate 100 MG Tablet as directed Orally twice a day , Not- Taking Voquezna 20 MG Tablet 1 tablet Orally Once a day , Notes: samples given to pt, Not-Taking predniSONE 20 MG Tablet 1 tablet [...] CeleBREX: rash. Objective: * Vitals: W t: 211.0, Temp: 98.1, BP: 120/80, HR: 73, O2 Sat: 99% on RA, Nurse: ELIZABETH, Ht: 64.50, BMI:35.65. * Examination: G eneral Examination: General Appearance: [...] on the abdomen, legs, and back, have resolved. P eripheral pulses: n ormal . E xtremities: trace leg edema. Assessment: * Assessment: 1. P olymyalgia rheumatica - M35.3 (Primary) 2 . G CA (giant cell arteritis) - M31.6 3 . F acial paresthesia - R20.2 4 . E ssential hypertension - I10 5 . G sarthak-esophageal reflux disease with esophagitis - K21.0 6. V itamin B12 deficiency - E53.8 7 . V itamin D deficiency - E55.9 Plan: * Treatment: Value Reference Range A /G Ratio 1.9 1.1-2.5 - * A lbumin 3.9 3.5-5.3 - g/dL * A lkaline Phosphatase 77 35-121 - IU/L * A LT (SGPT) 15 <5-47 - IU/L * A ST (SGOT) 16 <5-40 - IU/L * B ilirubin, Total <0.2 <0.2-1.2 - mg/dL * B UN 6 L 8-23 - mg/dL * C alcium 9.2 8.6-10.4 - mg/dL * C hloride 108 97-108 - mmol/L * C O2 23 20-32 - mmol/L * C reatinine 0.85 0.50-1.00 - mg/dL * G lucose 98 65-99 - mg/dL * P otassium 4.0 3.5-5.3 - mmol/L * S odium 141 135-145 - mmol/L * P rotein 6.0 6.0-8.3 - g/dL * e GFR by Creatinine 77 >59 - mL/min/1.73m2 * Shirley Zimmerman 01/02/2025 08:3 8:45 AM EDT > See phone encounter 2.?Gastro-esophageal reflux disease with esophagitis? Refill Voquezna Tablet, 20 MG, 1 tablet, Orally, daily, 30 days, 30 Tablet, Refills 3, Notes: samples given to pt.??3.?Vitamin B12 deficiency?LAB: P-Vitamin B12 (Collection Date & Time - 12/28/2024 03:25 PM)?290* Value Reference Range V itamin B12 [phone] - pg/mL * Shirley Zimmerman 01/02/2025 08:3 8:45 AM EDT > See phone encounter 4.?Vitamin D deficiency?LAB: P-Vitamin D, 1, 25 Dihydroxy (Collection Date & Time - 12/28/2024 03:25 PM)?Normal* Value Reference Range V itamin D, 1, 25 Dihydroxy 60.2 19.9-79.3 - pg /mL * Shirley Zimmerman 01/02/2025 08:3 8:45 AM EDT > See phone encounter * Procedure Codes: G 2211 Complex e/m visit add on, 1036F TOBACCO NON-USER, G8950 PREHTN/HTN BP DOC INDCD F/U DOC, G8752 MOST RECENT SYSTOLIC BP < 140MM HG, G8754 MOST RECENT DIASTOLIC BP < 90MM HG, 3074F SYST BP LT 130 MM HG, 3079F DIAST BP 80-89 MM HG * Follow Up: 3 Months * Images: Billing Information: * Visit Code: 55427 Office Visit, Est Pt., Level 4. * Procedure Codes: G2211 Complex e/m visit add on. 1036F TOBACCO NON-USER. G8950 PREHTN/HTN BP DOC INDCD F/U DOC. G8752 MOST RECENT SYSTOLIC BP < 140MM HG. G8754 MOST RECENT DIASTOLIC BP < 90MM HG. 3074F SYST BP LT 130 MM HG. 3079F DIAST BP 80-89 MM HG. * Electronic signature of Keira Pennington MD on 03/28/2025 at 10:47 AM EST Sign off status: Pending * Provider: Keira Pennington M.D. Date: Generated for Yevgeniyi ng/Farandallg/eTransmitting on: 10:47 AM EST History and Physical Notes * HPI (History of Present Illness) Category Sub-Category Detail Notes Category Not es Gastroenterology Abdominal Pain epigastric, episodic Examination Category Sub-Category Detail Notes Category Not es General Examination HEENT: Sclera and conjunctiv a clear, PERRLA Heart: RSR Lungs: clear to auscultatio n Abdomen: bowel sounds present , soft Extremities: trace leg edema General Appearance: NAD, hoarse Skin: skin lesions on the abdomen, legs, and back, have resolved Neurologic Exam: Intact, gait normal Neck: supple, no lymphaden opathy Oral cavity: no lesions, mucosa m oist and WNL, no erythema Peripheral pulses: normal Chest: normal shape and exp ansion
--- OUTSIDE RECORDS SUMMARY | 2025-03-28 10:46 | XMS_ITS | Patient Health Record ---
[facility] Address [address] [facility] [address] [id number] Care Team Providers Care [address] Crossing Guard Name Role Phone Keira Pennington Primary Care Provider [phone] Trev Mata Unavailable [phone] rSi Noble Unavailable [phone] Mine Plummer Unavailable [phone] Allergies Allergen (clinical drug ingredient) Drug/Non Drug Allergy documented on EMR Reaction Allergy Type Onset Date Status celecoxib CeleBREX rash Drug Allergy Active duloxetine Cymbalta Unknown Drug Allergy Active Ziac Unknown Drug Allergy Active codeine Codeine Unknown Drug Allergy Active Results Component Value Reference Range Notes P-Vitamin B12 Reviewed date:01/02/2025 08:38:51 AM Interpretation:290 Performing Lab: Notes/Report: Test performed by [facility] [address] [place], [place] [address] App Maritza [place]rera, [place] [address] Milton Self MD, Glassware Finisher CLIA: [id number] Vitamin B12 620 962-5171 pg/mL P-Comprehensive Metabolic Pa rell (CMP) Reviewed date:01/02/2025 08:38:51 AM Interpretation:Normal Performing Lab: Notes/Report: Test performed by [facility] [address] [place], [place] [address] Maritza Herrera, [facility] [address], [place] [address] Milton Self MD, Glassware Finisher CLIA: [id number] Sodium 141 135-145 mmol/L Potassium 4.0 3.5-5.3 [...] Interpretation:Normal Performing Lab: Notes/Report: Test performed by [facility] [address] [place] [address] , [address], [place] [address] Milton Self MD, Glassware Finisher CLIA: [id number] Vitamin D, 1, 25 Dihydroxy 60.2 19.9-79.3 pg/m L TEN-Upper Respiratory PCR Reviewed date:05/26/2024 10:35:05 AM [...] plat 329 100 - 400 H-BUN/CREAT Reviewed date:12/20/2024 01:18:57 PM Interpretation: Performing Lab: Notes/Report: BUN 7 7-17 mg/dl CREATT 0.90 0.52-1.04 mg/dl GFRAA 77 >60 ML/MIN EGFR 63 >60 ml/min P-TSH reflex to FT4 Reviewed date:12/05/2024 10:27:41 AM Interpretation:Normal Performing Lab: Notes/Report: Test performed by [facility] [address] [place] [address] , [address], [place] [address] Milton Self MD, Glassware Finisher CLIA: [id number] TSH reflex to FT4 0.96 0.43-5.25 mU/L H-BUN/CREAT Reviewed date:09/12/2024 08:29:10 AM Interpretation: Performing Lab: Notes/Report: BUN 13 7-17 mg/dl CREATT 0.80 0.52-1.04 mg/dl GFRAA 88 >60 ML/MIN EGFR 72 >60 ml/min CBC Venipuncture (in house) Reviewed date:12/12/2024 08:57:42 [...] 105 Performing Lab: Notes/Report: Test performed by [facility] [address] [place] [address] , [address], [place] [address] Milton Self MD, Glassware Finisher CLIA: [id number] Sodium 140 135-145 mmol/L Potassium 4.8 3.5-5.3 [...] Notes/Report: moderate hiatal hernia, benign hepatic cysts P-Comprehensive Metabolic Pa rell (CMP) Reviewed date:06/12/2024 05:17:34 PM Interpretation:Normal Performing Lab: Notes/Report: Test performed by [facility] [address] [place] [address] , [address], [place] [address] Milton Self MD, Glassware Finisher CLIA: [id number] Sodium 141 135-145 mmol/L Potassium 4.3 3.5-5.3 [...] age Performing Lab: Notes/Report: normal for age CBC Fingerstick (in house) Reviewed date:06/09/2024 10:02:02 [...] - 38 plat 405 100 - 400 Medications Medication SIG (Take, Route, Frequency, Duration) Notes Start Date End Date Status Esomeprazole Magnesium 40 MG 1 capsule 1 /2 to 1 hour before morning meal Orally Once a day; Duration: 30 day(s) 12/12/2024 Active Hydroxychloroquine Sulfate 100 MG as directed Orally twice a day Not-Taking Gabapentin 300 MG 1 capsule Orally Once [...] a day; Duration: 90 days 08/12/2023 Not-Taking Aspirin 81 MG 1 tablet Orally Once a day; Duration: 30 day(s) Active Fluticasone Propionate 50 MCG/ACT 1 spray in each nostril Nasally daily Not-Taking Diclofenac Sodium 1 % as directed applie d topically 4 times a day 06/10/2021 Active Albuterol Sulfate HFA 108 (90 Base) MCG/ACT 1 puff as needed Inhalation every 4 hrs, prn 05/26/2024 Not-Taking Furosemide 20 MG 1 tab(s) orally once a day; Duration: 90 days Active Voquezna 20 MG 1 tablet Orally daily; Duration: 30 days 12/12/2024 Active Restasis 0.05 % 1 drop into affected eye Ophthalmic Twice a day; Duration: 90 days Active traMADol HCl 50 MG 1 tablet as needed orally 3 times a day; Duration: 30 days 11/24/2024 Active dilTIAZem HCl ER Coated Beads 120 MG 1 capsule Orally twice a day; Duration: 90 days Active Vitamin B12 1000 MCG 1 tablet Orally Onc e a day; Duration: 90 days 01/03/2025 Active Immunizations Vaccine Route Administration Date Status Comme nts COVID 19 Ann Unknown 07/03/2020 Administered Fluzone Quad-Medicare (6months&older) Unknown 04/08/2016 Refused PNEUMOVAX 23 VACCINE Unknown 11/11/2017 Refused Shingrix Unknown 11/11/2017 Refused Tetanus Tdap-Adacel (over 7yrs) Unknown 11/11/2017 Refused Fluzone Quad (6months&older) IM Intramuscular 06/10/2021 Administered Fluzone Quad (6months&older) IM Intramuscular 12/03/2021 Administered Fluzone Quad (6months&older) IM Intramuscular 12/11/2019 Administered PNEUMOVAX 23 VACCINE IM Intramuscular 12/11/2019 Administe red Problems Problem Type SNOMED Code ICD Code Onset Dates Problem Status W/U Status Risk Notes Problem Gastro-esophageal reflux disease with esophagitis (448016125) Gastro-esophageal reflux disease with esophagitis (K21.0) Active confirmed Problem Hyperkalemia (28461393) Hyperkalemia (E87.5) Active confirmed Problem Sinusitis (47619197) Sinusitis (J32.9) Active confirmed Problem Vitamin D deficiency (34602277) Vitamin D deficiency (E55.9) Active confirmed Problem Vitamin B12 deficiency (230311022) Vitamin B12 deficiency (E53.8) Active confirmed Problem Essential hypertension (64335322) Essential hypertension (I10) Active confirmed Problem Osteopenia (152081506) Osteopenia (M85.80) Active confirmed Problem Urticaria (237874920) Urticaria (L50.9) Active confirmed Problem Restless legs syndrome (54428369) Restless leg syndrome (G25.81) Active confirmed Problem Muscle weakness (90111718) Muscle weakness (M62.81) Active confirmed Problem Actinic keratosis (648608) Actinic keratosis (L57.0) Active confirmed Problem Fibromyalgia (035638645) Fibromyalgia (M79.7) Active confirmed Problem Morbid obesity (disorder) (479742173) Morbid (severe) obesity due to excess calories (E66.01) Active confirmed Problem Primary insomnia (7496977) Primary insomnia (F51.01) Active confirmed Problem Chronic pain syndrome (981736022) Chronic pain syndrome (G89.4) Active confirmed Problem Polymyalgia rheumatica (40959775) Polymyalgia rheumatica (M35.3) Active confirmed Problem Vaccination given (011685505) Encounter for immunization (Z23) Active confirmed Problem Seborrheic keratosis (16926081) Seborrheic keratosis (L82.1) Active confirmed Problem Acute maxillary sinusitis (99014757) Acute maxillary sinusitis, recurrence not specified (J01.00) Active confirmed Problem Reactive depression (situational) (36161342) Situational depression (F43.21) Active confirmed Problem Chronic fatigue syndrome (01856222) Chronic fatigue (R53.82) Active confirmed Problem Obese class II (379732301631730) BMI 36.0-36.9,adult (Z68.36) Active confirmed Problem Inflammation of bursa of olecranon (940722849) Olecranon bursitis of left elbow (M70.22) Active confirmed Problem Paroxysmal supraventricular tachycardia (42698896) Paroxysmal supraventricular tachycardia (I47.1) Active confirmed Problem History of musculoskeletal disease (594024137) H/O Sjogren's disease (Z87.39) Active confirmed Problem Menopausal symptom (34659394) Menopause syndrome (N95.1) Active confirmed Problem Dyslipidemia (237182021) Dyslipidemia (E78.5) Active confirmed Problem Allergic rhinitis (31299645) Seasonal allergic rhinitis due to other allergic trigger (J30.89) Active confirmed Problem Fibrocystic breast changes (40912716) Fibrocystic breast disease (FCBD), unspecified laterality (N60.19) Active confirmed Problem Pain due to varicose veins of lower extremity (356426292) Varicose veins of both lower extremities with pain (I83.813) Active confirmed Problem Sialoadenitis (24463405) Submandibular gland inflammation (K11.20) Active confirmed Problem Acute insomnia (836738641) Acute insomnia (G47.00) Active confirmed Problem Facial paresthesia (43923805) Facial paresthesia (R20.2) Active confirmed Problem Burning sensation of mouth (8279517647) Burning sensation of mouth (R20.8) Active confirmed Problem Giant cell arteritis (disorder) (641345435) GCA (giant cell arteritis) (M31.6) Active confirmed Vital Signs Heart Rate 73 /min 12/28/2024 Blood pressure diastolic 80 mm Hg 12/28/2024 Height 64.50 in 12/28/2024 Blood pressure systolic 120 mm Hg 12/28/2024 Weight 211.0 lbs 12/28/2024 BMI 35.65 kg/m2 12/28/2024 Encounters Encounter Location Date Provider Diagnosis [facility] [address] [facility] [address] [facility] [address] [place] [id number] 05/24/2024 Mine Crowdy Acute URI J06.9 and Bronchitis J40 [facility] [address] [facility] [address] [place] [id number] 06/08/2024 Keira Pennington Bronchitis J40 ; Essential (primary) hypertension I10 ; Chronic pain syndrome G89.4 and Seborrheic keratosis L82.1 [facility] [address] [place] [id number] 08/31/2024 R David Mata 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 ; Chronic fatigue R53.82 and BMI 36.0-36.9,adult Z68.36 [facility] [address] [place], [place] [id number] 11/30/2024 Keira Pennington Essential hypertensi on I10 and GCA (giant cell arteritis) M31.6 [facility] [address], [place] [id number] 12/12/2024 Sri Noble Abdominal pain R10.9 ; Essential (primary) hypertension I10 ; Gastro-esophageal reflux disease with esophagitis K21.0 and Epigastric abdominal pain R10.13 [facility] [address] [place], [place] [id number] 12/28/2024 Keira Pennington Polymyalgia rheumati ca M35.3 ; GCA (giant cell arteritis) M31.6 ; Facial paresthesia R20.2 ; Essential hypertension I10 ; Gastro-esophageal reflux disease with esophagitis K21.0 ; Vitamin B12 deficiency E53.8 and Vitamin D deficiency E55.9 [facility] [address] [place], [place] [id number] 05/16/2024 Keira Pennington Fibromyalgia M79.7 [facility] [address] [place], [place] [id number] 05/26/2024 Mine Kavitha [facility] [address] [place], [place] [id number] 08/02/2024 Keira Pennington [facility] [address] [place], [place] [id number] 09/14/2024 Keira Pennington [facility] [address] [place], [place] [id number] 09/28/2024 Keira Pennington [facility] [address] [place], [place] [id number] 11/20/2024 Keira Pennington [facility] [address] [place], [place] [id number] 11/23/2024 Keira Pennington [facility] [address] [place], [place] [id number] 11/24/2024 Keira Pennington Fibromyalgia M79.7 [facility] [address] [place], [place] [id number] 12/05/2024 Keira Pennington [facility] [address] [place], [place] [id number] 12/26/2024 Keira Pennington Colon cancer screeni ng Z12.11 and Encounter for screening for malignant neoplasm of breast Z12.31 [facility] [address] [place], [place] [id number] 12/29/2024 Sri Noble [facility] [address] [place], [place] [id number] 01/02/2025 Keira Pennington [facility] [address] [place], [place] [id number] 02/15/2025 Keira Pennington Assessments Encounter Date Diagnosis (ICD Code) Assessment Notes Treatment Notes Treatment Clinical Notes Section Notes 05/16/2024 Fibromyalgia (ICD-10 - M79.7) 05/24/2024 Acute [...] 12/12/2024 Essential (primary) hypertension (ICD-10 - I10) 12/26/2024 Colon cancer screening (ICD-10 - Z12.11) 12/28/2024 Polymyalgia rheumatica (ICD-10 - M35.3) 12/28/2024 GCA (giant cell arteritis) (ICD-10 - M31.6) 12/26/2024 Encounter for screening for malignant neoplasm of breast (ICD-10 - Z12.31) 12/28/2024 Facial paresthesia (ICD-10 - R20.2) 12/12/2024 Gastro-esophageal reflux disease with esophagitis (ICD-10 - K21.0) stressed bland food/drink; small amounts at a time; ; GI referral; needs EGD; will go and schedule CT of abdomen 08/31/2024 BMI 36.0-36.9,adult (ICD-10 - Z68.36) 06/08/2024 Chronic pain syndrome (ICD-10 - G89.4) 06/08/2024 Seborrheic keratosis (ICD-10 - L82.1) 12/12/2024 Epigastric abdominal pain (ICD-10 - R10.13) bland diet; mylanta/maalox prn 12/28/2024 Essential hypertension (ICD-10 - I10) 12/28/2024 Gastro-esophageal reflux disease with esophagitis (ICD-10 - K21.0) 12/28/2024 Vitamin B12 deficiency (ICD-10 - E53.8) 12/28/2024 Vitamin D deficiency (ICD-10 - E55.9) Plan Of Treatment Pending Test Test Name Order Date Mammogram 12/26/2024 Cologuard 12/26/2024 Next Appt Details Provider Name:Keira Albarran er, 04/02/2025 04:15:00 PM, [address], [place], [place], [id number], Insurance Providers Payer Name Payer Address Payer Phone Subscriber Number Group Number Insured Name Patient Relationship to Insured Coverage Start Date Coverage End Date [employer] (MEDICAR E) [address] [address] [place] [address] [phone] [id number] Arabella Newell Self - patient is the insured Medications Administered Medication Instructions Date of Administration Dosage Notes B-12 01/27/2007 B-12 12/24/2010 1 mL B-12 12/03/2021 1 mL B-12 05/27/2022 1 mL B-12 02/04/2022 1 mL B-12 03/05/2020 1 mL B-12 02/07/2020 1 mL B-12 10/09/2019 1 mL B-12 09/08/2019 1 mL B-12 05/19/2019 1 mL B-12 01/06/2019 1 mL B-12 09/16/2018 1 mL B-12 02/24/2017 1 mL B-12 01/27/2017 1 mL B-12 12/21/2013 1 mL B-12 05/11/2011 1 mg B-12 02/27/2011 B-12 01/28/2011 1 mL B-12 08/27/2020 1 mL B-12 01/10/2020 1 mL B-12 12/11/2019 1 mL B-12 11/22/2019 1 mL B-12 08/18/2019 1 mL B-12 12/30/2016 1 mL B-12 12/29/2011 1 mL B-12 09/21/2022 1 mL B-12 08/12/2023 1 mL Vistaril 50 mg 09/23/2009 2 mL B-12 01/06/2007 1 mL B-12 01/13/2007 1 mL B-12 01/20/2007 1 mL B-12 01/31/2007 1 mL B-12 10/02/2009 1 mL B-12 10/14/2009 1 mL B-12 03/14/2014 1 mL Medical (General) History Medical History [...] 02/2021 Hospitalization History Reason Date(Month/Year) pneumonia 02/2021 [facility]-Dehydration 09/23/ to 09/25/09 severe pain in stomach and back (ER visi t) 10/2006
--- NOTE | 2025-03-28 11:00 | CT_ITS ---
FINAL REPORT TECHNIQUE: Thin section axial images were obtained through the paranasal sinuses without contrast. Reconstruction images were obtained from the axial data. Exam was performed using dose reduction techniques such as automated exposure control, adjustment of the mA and kV according to patient size, and use of iterative reconstruction technique. CLINICAL HISTORY: evaluate for treatment PT STATED LEFT SIDE OF FACE NUMBNESS COMPARISON: None FINDINGS: There is near complete opacification of the right maxillary sinus, favor chronic. There is mucoperiosteal thickening in the bilateral sphenoid sinuses. The remainder of the paranasal sinuses are clear. The mastoid air cells are clear. There is occlusion of the right maxillary infundibulum by mucoperiosteal thickening. The left maxillary infundibulum is normal. There are bilateral evita bullosa in the middle turbinates without significant nasal septal deviation. There is no acute osseous abnormality. Remaining soft tissues appear unremarkable. IMPRESSION: 1. Near complete opacification of the right maxillary sinus, favor chronic sinusitis. 2. Mucoperiosteal thickening in the bilateral sphenoid sinuses, with the remainder of the sinuses clear. Reviewed, Interpreted and Dictated by Jazmin Chatterjee MD Transcribed by Shy Barrera Authenticated and [facility]
== END 2025-03-28 23:59 | disposition home or self-care (01) ==
LOC: RAD 10:44
PROVIDERS: PCP Family Medicine; Visit Provider Nurse Practitioner
DX: J34.89 Other specified disorders of nose and nasal sinuses (principal); R93.0 Abnormal findings on diagnostic imaging of skull and head, not elsewhere classified; R09.82 Postnasal drip
CPT/HCPCS: 70486